=== PATIENT | female | born 1975 | race Two or more races ===

== ENCOUNTER 2021-01-18 15:05 | Outpatient (REF) | payer MEDICAID, SELFPAY ==
--- NOTE | ~2021-01-18 | XR_ITS ---
EXAMINATION: XR SOFT TISSUE NECK AND RIGHT SHOULDER CLINICAL INFORMATION: Neck pain. COMPARISON: None. TECHNIQUE: Soft tissue neck 2 views. Right shoulder 4 views. FINDINGS: SOFT TISSUE NECK: The airway is widely patent. The prevertebral soft tissues are normal. There is normal cervical lordosis. The vertebral heights, alignment and disc heights are normal. No visible acute fracture, dislocation or lytic process seen. RIGHT SHOULDER: There is no visible acute fracture, dislocation or subluxation seen. There is mild periarticular spurring right AC joint. The soft tissues are normal. XR/XR soft tissue neck IMPRESSION: Unremarkable soft tissue neck. No cervical spine bony abnormality seen. Unremarkable right shoulder exam.
--- NOTE | ~2021-01-18 | XR_ITS ---
EXAMINATION: XR SOFT TISSUE NECK AND RIGHT SHOULDER CLINICAL INFORMATION: Neck pain. COMPARISON: None. TECHNIQUE: Soft tissue neck 2 views. Right shoulder 4 views. FINDINGS: SOFT TISSUE NECK: The airway is widely patent. The prevertebral soft tissues are normal. There is normal cervical lordosis. The vertebral heights, alignment and disc heights are normal. No visible acute fracture, dislocation or lytic process seen. RIGHT SHOULDER: There is no visible acute fracture, dislocation or subluxation seen. There is mild periarticular spurring right AC joint. The soft tissues are normal. XR/XR shoulder RT min 2V IMPRESSION: Unremarkable soft tissue neck. No cervical spine bony abnormality seen. Unremarkable right shoulder exam.
== END 2021-01-18 15:06 | disposition home or self-care (01) ==
LOC: HO.XRAY 15:05
PROVIDERS: PCP Registered Nurse; Visit Provider Registered Nurse
DX: M25.511 Pain in right shoulder (principal); M54.2 Cervicalgia
CPT/HCPCS: 70360; 73030

== ENCOUNTER 2021-01-20 13:15 | Emergency (ER) | payer MEDICAID, SELFPAY ==
--- NOTE | ~2021-01-20 | US_ITS ---
EXAMINATION: PELVIC ULTRASOUND CLINICAL INFORMATION: Vaginal bleeding. Cramping. COMPARISON: None TECHNIQUE: Transcutaneous pelvic ultrasound. The patient was asked to void completely and reexamined vaginally to better characterize the endometrium and adnexa. FINDINGS: Transcutaneous scanning does not demonstrate a large mass or collection. No suspicious abnormality in the region of the vagina. The cervical length is approximately 3.2 cm. There is no suspicious abnormality in the cervix. The uterus is anteverted. The uterus measures approximately 8.2 x 4.8 x 4.5 cm. The endometrium is slightly heterogeneous. The endometrium measures approximately 0.5 cm. Small amount of fluid within the endometrial cavity. The myometrium is heterogeneous. The junctional zone is not well demonstrated. The uterine contour appears smooth. The right ovary measures approximately 3.3 x 1.6 x 1.9 cm. The estimated right ovarian volume is 5 mL. There is no suspicious right adnexal mass or collection. There is some color signal present within the right ovary. The left ovary measures approximately 3.2 x 2.5 x 3.6 cm. The estimated left ovary volume is approximately 17 mL. There is no suspicious left adnexal mass or collection. There is some color signal present within the left ovary. No significant free fluid US/US pelvic and transvaginal IMPRESSION: The endometrium is not thickened. There is no suspicious adnexal mass or collection. There is a trace amount of fluid in the endometrial cavity which is nonspecific and could represent blood. No discrete mass
[2021-01-20 13:18] VITALS: BP 147/80; PULSE 94; RESP 18; TEMP 36.2; O2SAT 98; BMI 29.2
[2021-01-20 15:18] VITALS: BP 119/61; PULSE 76; RESP 19; TEMP 36.9; O2SAT 99
--- NOTE | 2021-01-20 15:27 | ED.FEMALEGU ---
HPI - Female Genitourinary General Chief complaint: Urogenital-Female Stated complaint: Vaginal Bleeding Time Seen by Provider: 01/20/21 14:57 Source: patient and park interpreter Mode of arrival: ambulatory Limitations: no limitations and language barrier History of Present Illness HPI Narrative: 46-year-old female here with complaints of vaginal bleeding for 23 days. Patient tells me she has a history of heavy and prolonged bleeding and normally her menses last approximately 10 days. However, she has not had a period for 23 days. Heavy bleeding using 7 8 pads a day. Associated with clots. Associated with lower pelvic cramping. She is not on any control. She is not currently sexually active. No urinary symptoms, nausea, vomiting, vaginal discharge. She now is feeling dizzy, lightheaded with position changes with an associated headache. Related Data Allergies Allergy/AdvReac Type Severity Reaction Status Date / Time aspirin Allergy Unknown Unknown Verified 01/20/21 13:20 Review of Systems Review of Systems: Yes all other systems are reviewed and are negative Constitutional: Constitutional: Reports no additional constitutional complaints, Denies body ache(s), Denies chills, Denies fever(s), Denies headache(s) and Denies weakness Eyes: Eyes: Reports no additional eye complaints and Denies change in vision ENT: Reports system reviewed and no additional complaints, except as documented, Reports dizziness, Denies headache(s), Denies nasal congestion, Denies nasal discharge and Denies neck pain Cardiovascular: Cardiovascular: Reports no additional cardiovascular complaints, Denies chest pain, Denies leg edema and Denies dyspnea Respiratory: Respiratory: Reports no additional respiratory complaints, Denies cough and Denies dyspnea Gastrointestinal: Gastrointestinal: Reports no additional gastrointestinal complaints, Denies abdominal pain, Denies diarrhea, Denies nausea and Denies vomiting Genitourinary: Genitourinary: Reports no additional female genitourinary complaints, Reports abnormal menses, Reports pelvic pain and Denies urinary incontinence Musculoskeletal: Musculoskeletal: Reports no additional musculoskeletal complaints, Denies back pain, Denies arthralgias, Denies joint swelling, Denies neck pain, Denies numbness and Denies tingling Integumentary/Breasts: Skin/Breast: Reports system reviewed and no additional complaints, except as docu and Denies rash Neurologic: Reports system reviewed and no additional complaints, except as documented, Denies Abnormal speech present, Reports dizziness, Denies headache(s), Denies numbness, Denies tingling and Denies weakness PMFSH Past Medical History Attestation statement: The following information was validated with the patient. Source: old records reviewed and nursing notes reviewed Medical History Anemia Social History Social History Advance Directives: No Advance Directives Information Provided: No Physical Exam Vital Signs: Vital Signs: Last Vital Signs Temp 98.4 F 01/20/21 15:18 Pulse 60 01/20/21 16:00 Resp 18 01/20/21 16:00 BP 125/81 01/20/21 16:00 Pulse Ox 99 01/20/21 16:00 Body Mass Index 29.2 Const: General: cooperative, healthy appearing, comfortable and no acute distress Orientation/consciousness: patient oriented x3 Limitations: no limitations HENMT: Head: Yes normal to inspection Ears: hearing grossly normal bilaterally General nose exam: Normal external nose present Face and sinus: Yes normal facial exam Mouth: Normal oral and palatal mucosa present Throat: Yes posterior oropharynx normal Eyes: General: appearance normal, both eyes and all related structures Conjunctivae: conjunctival abnormal (Pale conjunctiva) Pupils: Equal, round and reactive pupils present Neck: Neck: Yes normal visual inspection Chest: Chest palpation & inspection: normal inspection of the chest Resp: Effort & Inspection: normal respiratory effort Auscultation: clear to auscultation bilaterally Cardio: Rate: regular rate Rhythm: regular rhythm Peripheral pulses: Peripheral pulses 2+ throughout GI: Inspection: Yes normal to inspection Palpation (GI): Soft to palpation and nontender Auscultation: normal bowel sounds : Speculum Exam - Vagina: normal appearance of the vagina and vaginal bleeding (small-mod amounts ) Speculum Exam - Cervix: normal appearance of the cervix Bimanual exam- vagina & uterus: normal bimanual exam Bimanual Exam- Adnexa, other: normal adnexae OB/external & speculum: vaginal bleeding (small-mod amounts ) Back/Spine/Pelvis: Thoracic/Lumbar Spine: thoracic and lumbar spine normal to inspection Skin: General skin exam: no rashes or lesions noted Neuro: General: patient oriented x3, no focal motor deficits and normal sensation to monofilament Cranial nerves: Yes Equal, round and reactive pupils present Cognition (Neuro): normal cognition Speech: No Abnormal speech present Gait exam (Neuro): Normal gait present Motor exam (neuro): 5/5 motor strength present throughout Extrem: General: Yes normal to inspection Course Course Course Narrative: 46-year-old female here with heavy vaginal bleeding for the last 23 days now feeling dizzy and lightheaded with position changes. Will need labs, orthostatic vital signs, UA, urine , pelvic ultrasound, pelvic exam 1700-Sign out to [facility] [employer] pending above MDM - Female Genitourinary MDM Narrative Medical decision making narrative: Dysfunctional uterine bleeding, uterine fibroid Medical Records Attestation: I reviewed the patient's medical records. Lab Data Attestation: I reviewed the patient's lab results. Labs: Lab Results 01/20/21 01/20/21 Range/Units 15:51 15:51 Urine Color YELLOW Urine Appearance CLEAR Urine pH 7.5 (5.0-8.0) Ur Specific [place] 1.010 (1.005-1.025) Urine Protein TRACE (NEG-TRACE) MG/DL Urine Glucose (UA) NEG (NEG) MG/DL Urine Ketones NEG (NEG) MG/DL Urine Blood 3+ H (NEG) Urine Nitrite NEG (NEG) Ur Leukocyte Esterase NEG (NEG) Urine RBC 50-75 H (0) /HPF Urine WBC 1-4 (0-4) /HPF Ur Squamous Epith Cells TRACE /LPF Urine Bacteria NONE /LPF Urine Mucus TRACE /LPF Urine Test NEGATIVE (NEGATIVE) Imaging Data pelvic US: Attestation: I personally reviewed and interpreted this imaging study as follows: Radiologist's impression: IMPRESSION: The endometrium is not thickened. There is no suspicious adnexal mass or collection. There is a trace amount of fluid in the endometrial cavity which is nonspecific and could represent blood. No discrete mass Discharge Plan Discharge Clinical Impression: Vaginal bleeding problems
[2021-01-20 15:58] LABS: Glucose Urine UA NEG (NEG); Leukocyte Esterase Urine NEG (NEG); Nitrite Urine NEG (NEG); PH 7.5 (5.0-8.0); Urine Blood 3+ (NEG); Urine Ketones NEG (NEG); Urine Protein TRACE MG/DL (NEG-TRACE)
[2021-01-20 16:00] VITALS: BP 125/81; PULSE 60; RESP 18; O2SAT 99
[2021-01-20 16:02] LABS: Appearance Urine CLEAR; Color Urine YELLOW; UPreg QC Valid YES; Urine Pregnancy NEGATIVE (NEGATIVE)
[2021-01-20 16:10] LABS: RBC Urine 50-75 /HPF (0); Squamous Epithelial Cell Urine TRACE /LPF
[2021-01-20 16:11] LABS: Mucus Urine TRACE /LPF
[2021-01-20 17:59] LABS: MANUAL DIFF FLAG NO
[2021-01-20 18:01] LABS: Eosinophils Absolute Auto 0.1 X10*3/uL (0.0-0.4); Eosinophils Percent Auto 1.2 % (0-4); Hematocrit 32.2 % (37-47); Hemoglobin 9.9 g/dl (12.0-16.0); Imm Gran Abs Auto 0.01 X10*3/uL (0.00-0.03); Imm Gran Pct Auto 0.2 % (0.0-0.4); Lymphocytes Absolute Auto 1.3 X10*3/uL (1.2-4.9); Lymphocytes Percent Auto 32.8 % (20-40); Mean Corpuscular HGB Conc 30.7 g/dl (31.0-35.0); Mean Corpuscular Hemoglobin 24.1 pg (27.0-33.0); Mean Corpuscular Volume 78.5 fL (80-98); Mean Platelet Volume 9.1 fL (9.4-12.3); Monocytes Absolute Auto 0.4 X10*3/uL (0.1-1.2); Monocytes Percent Auto 8.6 % (2-11); Neutrophils Absolute Auto 2.3 X10*3/uL (2.0-8.3); Neutrophils Percent Auto 56.2 % (45-73); Platelet Count 334 X10*3/uL (160-400); Red Cell Distribution Width 14.3 % (11.0-16.0); White Blood Count 4.1 X10*3/uL (4.8-10.8)
[2021-01-20 18:09] LABS: INTERNATIONAL NORM RATIO 1.1 (0.9-1.1); Prothrombin Time 12.6 SEC (10.8-13.0)
[2021-01-20 18:22] LABS: Alanine Aminotransferase 14 U/L (0-31); Alkaline Phosphatase 66 U/L (39-117); Anion Gap 12 (12-20); Aspartate Amino Transferase 18 U/L (5-31); Bilirubin Direct < 0.2 mg/dL (0.0-0.5); Bilirubin Total 0.4 mg/dL (0.0-1.0); Blood Urea Nitrogen 9 mg/dL (9-16); Calcium 8.9 mg/dL (8.4-10.2); Carbon Dioxide 24 mmol/L (22-29); Chloride 107 mmol/L (96-108); Creatinine Clr Calc Pharmacy 84.1; Estimated Glomerular Filt Rate > 60; Glucose Random 76 mg/dL (60-115); Potassium 4.1 mmol/L (3.3-5.1); Sodium 139 mmol/L (135-145); Total Protein 6.8 g/dL (6.5-8.0)
[2021-01-20] MEDS: medroxyPROGESTERone Acetate 5 MG TABLET 10 MG PO (19:24)
[2021-01-20 19:25] VITALS: BP 134/87; PULSE 67; RESP 16; O2SAT 99
[2021-01-21 08:41] LABS: BV Int Neg Control Negative (Negative); BV Int Pos Control Positive (Positive)
[2021-01-21 10:17] LABS: CT PCR NOT DETECTED (Not Detect.); NG PCR NOT DETECTED (Not Detect.)
== END 2021-01-20 19:52 | disposition home or self-care (01) ==
PROVIDERS: Nurse Practitioner Family; Emergency Provider Emergency Medicine
DX: N93.9 Abnormal uterine and vaginal bleeding, unspecified (principal); R10.2 Pelvic and perineal pain; D64.9 Anemia, unspecified
CPT/HCPCS: 36415; 76830; 76856; 80048; 80076; 81001; 81003; 81025; 85025; 85610; 87480; 87491; 87510; 87591; 87660; 99284

== ENCOUNTER 2021-05-29 15:29 | Outpatient (REF) | payer MEDICAID, SELFPAY | END 2021-05-29 15:30 | disposition home or self-care (01) | LOC: HO.LAB 15:29 | PROVIDERS: Visit Provider Internal Medicine | DX: Z20.822 Contact with and (suspected) exposure to COVID-19 (principal) | CPT/HCPCS: C9803; U0003; U0005 ==

== ENCOUNTER 2021-08-09 15:19 | Outpatient (REF) | payer MEDICAID, SELFPAY ==
--- NOTE | ~2021-08-09 | MM_ITS ---
EXAMINATION: MM SCREENING DIGITAL BREAST TOMOSYNTHESIS, BILATERAL CLINICAL INFORMATION: Screening. Asymptomatic. The lifetime risk of breast cancer based on the Tyrer-Cuzick Model is 11.1%. COMPARISON: Mammography: 12/22/2018 and 12/11/2017. TECHNIQUE: Digital breast tomosynthesis is performed in both the craniocaudal and mediolateral oblique views along with computer-aided detection (CAD). Synthesized 2D images are generated from the tomosynthesis. FINDINGS: There are scattered areas of fibroglandular density (ACR BI-RADS breast composition Category b). There is a stable parenchymal pattern of the left breast with no new abnormal dominant mass or suspicious grouping of microcalcifications. About the deep upper outer aspect of the right breast, there is a new circumscribed density without microcalcifications or spiculation measuring approximately 7 x 5 mm in size, 9 cm from the nipple, for which spot compression films and ultrasound is recommended. MM/MM tomosynthesis screening BI IMPRESSION: Right breast circumscribed density for further evaluation with spot compression views and ultrasound. ASSESSMENT: BI-RADS 0: Incomplete - need additional imaging evaluation RECOMMENDATION: 1. Additional views of the right breast. 2. Targeted ultrasound if warranted after review of the additional views. 3. Radiology department staff will contact the patient for additional imaging. This patient's information was entered into a reminder system with a target due date for their next mammogram.
== END 2021-08-09 15:20 | disposition home or self-care (01) ==
LOC: HO.MAMMO 15:19
PROVIDERS: PCP Registered Nurse; Visit Provider Registered Nurse Community Health
DX: Z12.31 Encounter for screening mammogram for malignant neoplasm of breast (principal)
CPT/HCPCS: 77063; 77067

== ENCOUNTER 2021-08-28 14:29 | Outpatient (REF) | payer MEDICAID, SELFPAY ==
--- NOTE | ~2021-08-28 | MM_ITS ---
EXAMINATION: MM DIAGNOSTIC DIGITAL BREAST TOMOSYNTHESIS, RIGHT US DIAGNOSTIC ULTRASOUND BREAST, RIGHT CLINICAL INFORMATION: Recall from screening for smooth focal nodular asymmetry outer right breast 9:00-10:00 position under 1 cm. COMPARISON: Mammography: 08/09/2021, 12/22/2018, 12/11/2017 TECHNIQUE: Digital breast tomosynthesis is performed. 2D images are generated from the tomosynthesis. The following views are obtained: Spot CC x2, spot MLO Ultrasound right breast is targeted to the outer breast. Grayscale imaging and color Doppler are performed without and with harmonics. FINDINGS: The spot CC #2 view shows oval nodular asymmetry in the area of interest outer quadrant 10 cm from nipple measuring 0.5 x 0.8 cm. There is questionable notched contour which may suggest an intramammary node. No spiculation or associated calcification. Finding is less conspicuous on the MLO spot view. Ultrasound right breast demonstrates intramammary node 10:00 position 10 cm from nipple measuring 0.8 x 0.6 cm with normal eliezer architecture and color flow pattern. This may represent finding on recent mammography. There is no solid mass or architectural abnormality. Results are discussed with the patient at time of visit. Short interval right mammography will be requested in 6 months. Ultrasound may be performed at same visit as warranted. MM/MM tomosynthesis added views R IMPRESSION: Smooth oval subcentimeter nodular asymmetric density outer right breast breast possibly related to an intramammary node. ASSESSMENT: BI-RADS 3: Probably Benign RECOMMENDATION: Diagnostic right mammography in 6 months. This patient's information was entered into a reminder system with a target due date for their next mammogram.
== END 2021-08-28 14:30 | disposition home or self-care (01) ==
LOC: HO.MAMMO 14:29
PROVIDERS: Visit Provider Registered Nurse Community Health
DX: N63.13 Unspecified lump in the right breast, lower outer quadrant (principal)
CPT/HCPCS: 76642; 77061; 77065

== ENCOUNTER 2021-12-10 15:59 | Outpatient (REF) | payer MEDICAID, SELFPAY ==
[2021-12-10 17:17] LABS: Hematocrit 35.4 % (37.0-47.0); Hemoglobin 10.9 g/dl (12.0-16.0); Mean Corpuscular HGB Conc 30.8 g/dl (31.0-35.0); Mean Corpuscular Hemoglobin 24.2 pg (27.0-33.0); Mean Corpuscular Volume 78.7 fL (80.0-98.0); Mean Platelet Volume 9.3 fL (9.4-12.3); Platelet Count 336 X10*3/uL (160-400); Red Cell Distribution Width 14.4 % (11.0-16.0); White Blood Count 4.4 X10*3/uL (4.8-10.8)
[2021-12-10 17:58] LABS: Alanine Aminotransferase 26 U/L (0-31); Albumin Level 4.2 g/dL (3.5-5.0); Alkaline Phosphatase 54 U/L (39-117); Anion Gap 8 (12-20); Aspartate Amino Transferase 21 U/L (5-31); Bilirubin Total < 0.2 mg/dL (0.0-1.0); Blood Urea Nitrogen 12 mg/dL (9-16); Carbon Dioxide 26 mmol/L (22-29); Chloride 110 mmol/L (96-108); Estimated Glomerular Filt Rate > 60; Glucose Random 101 mg/dL (60-115); Potassium 4.2 mmol/L (3.3-5.1); Sodium 140 mmol/L (135-145); Total Protein 6.8 g/dL (6.5-8.0)
[2021-12-10 18:11] LABS: TSH reflex Free T4 1.83 uIU/mL (0.32-4.0)
[2021-12-10 18:20] LABS: Folate 9.6 ng/mL (> or = 4.0); Vitamin B12 507 pg/mL (200-900)
[2021-12-12 21:56] LABS: Transglutaminase Ab IgG <1.0 U/mL; Transglutaminase IgA <1.0 U/mL
[2021-12-15 13:07] LABS: Vitamin D 25-OH, D2 <4 ng/mL; Vitamin D 25-OH, D3 22 ng/mL; Vitamin D 25-OH, Total 22 ng/mL (30-100)
== END 2021-12-10 16:00 | disposition home or self-care (01) ==
LOC: HO.LAB 15:59
PROVIDERS: PCP Registered Nurse; Referring Provider Registered Nurse; Visit Provider Nurse Practitioner Family
DX: R10.9 Unspecified abdominal pain (principal); R19.7 Diarrhea, unspecified; R14.0 Abdominal distension (gaseous); K21.9 Gastro-esophageal reflux disease without esophagitis; K58.2 Mixed irritable bowel syndrome; E55.9 Vitamin D deficiency, unspecified
CPT/HCPCS: 36415; 80053; 82306; 82607; 82746; 84443; 85027; 86364; 99202

== ENCOUNTER 2021-12-11 18:04 | Outpatient (REF) | payer MEDICAID, SELFPAY ==
[2021-12-12 12:52] LABS: H Pylori Breath Test Negative (Negative)
== END 2021-12-11 18:05 | disposition home or self-care (01) ==
LOC: HO.LNP 18:04
PROVIDERS: Visit Provider Nurse Practitioner Family
DX: K21.9 Gastro-esophageal reflux disease without esophagitis (principal); K58.2 Mixed irritable bowel syndrome; R14.0 Abdominal distension (gaseous)
CPT/HCPCS: 83013

== ENCOUNTER 2022-02-01 15:25 | Outpatient (REF) | payer MEDICAID, SELFPAY ==
[2022-02-01 17:00] LABS: Hematocrit 35.4 % (37.0-47.0); Hemoglobin 11.2 g/dl (12.0-16.0); Mean Corpuscular HGB Conc 31.6 g/dl (31.0-35.0); Mean Corpuscular Hemoglobin 24.7 pg (27.0-33.0); Mean Corpuscular Volume 78.1 fL (80.0-98.0); Mean Platelet Volume 9.6 fL (9.4-12.3); Platelet Count 351 X10*3/uL (160-400); Red Blood Count 4.53 X10*6/uL (4.20-5.50); Red Cell Distribution Width 14.4 % (11.0-16.0); White Blood Count 5.6 X10*3/uL (4.8-10.8)
[2022-02-01 17:18] LABS: Iron 127 mcg/dL (30-160); Percent Iron Saturation 45 % (15-50); Total Iron Binding Capacity 280 mcg/dL (228-428); Unsaturated Iron Binding 153 ug/dL
[2022-02-01 17:41] LABS: Ferritin 22 ng/mL (10-250)
== END 2022-02-01 15:26 | disposition home or self-care (01) ==
LOC: HO.LAB 15:25
PROVIDERS: PCP Registered Nurse; Referring Provider Registered Nurse; Visit Provider Nurse Practitioner Family
DX: Z01.818 Encounter for other preprocedural examination (principal); K92.2 Gastrointestinal hemorrhage, unspecified; R74.8 Abnormal levels of other serum enzymes; D50.8 Other iron deficiency anemias; K21.9 Gastro-esophageal reflux disease without esophagitis
CPT/HCPCS: 36415; 82728; 83540; 85027; 99212

== ENCOUNTER 2022-03-07 13:33 | Outpatient (REF) | payer MEDICAID, SELFPAY ==
--- NOTE | ~2022-03-07 | MM_ITS ---
EXAMINATION: MM DIAGNOSTIC DIGITAL BREAST TOMOSYNTHESIS, RIGHT CLINICAL INFORMATION: Short interval six-month follow-up probable benign nodular asymmetry suspected intramammary node on prior imaging. TC score 9%. COMPARISON: Mammography: 08/28/2021, 08/09/2021, 12/22/2018, 12/11/2017, targeted right breast ultrasound 08/28/2021. TECHNIQUE: Digital breast tomosynthesis is performed in both the craniocaudal and mediolateral oblique views along with computer-aided detection (CAD). Synthesized 2D images are generated from the tomosynthesis. Additional right MLO view is provided. FINDINGS: There are scattered areas of fibroglandular density (ACR BI-RADS breast composition Category b). The nodule noted previously prompting recall is not seen with certainty. Parenchymal pattern is otherwise similar to prior studies. There is no developing density, interval mass, or architectural abnormality. No abnormal calcifications. Skin contours are smooth. Results are provided to the patient at time of visit by the technologist. MM/MM tomosynthesis diagnostic RT IMPRESSION: No developing density or interval mass or architectural abnormality. ASSESSMENT: BI-RADS 2: Benign RECOMMENDATION: Routine annual mammography screening. This patient's information was entered into a reminder system with a target due date for their next mammogram.
== END 2022-03-07 13:34 | disposition home or self-care (01) ==
LOC: HO.MAMMO 13:33
PROVIDERS: Visit Provider Registered Nurse
DX: R92.2 Inconclusive mammogram (principal)
CPT/HCPCS: 77061; 77065

== ENCOUNTER 2022-05-30 11:55 | Outpatient (REF) | payer MEDICAID, SELFPAY ==
--- NOTE | ~2022-05-30 | XR_ITS ---
EXAMINATION: XR ANKLE, RIGHT CLINICAL INFORMATION: Pain. COMPARISON: None. TECHNIQUE: AP, lateral, and mortise views of the right ankle. FINDINGS: Bony alignment and mineralization are normal. The ankle mortise is intact. No fracture, dislocation or right ankle joint effusion is seen. Boehler's angle is normal. There is a large posterior calcaneal spur. No focal soft tissue swelling, gas or foreign body is seen. XR/XR ankle RT 2V IMPRESSION: 1. No fracture, dislocation or right ankle joint effusion is seen. 2. There is a large posterior calcaneal spur
--- NOTE | ~2022-05-30 | XR_ITS ---
EXAMINATION: XR KNEE, RIGHT CLINICAL INFORMATION: Pain. COMPARISON: None TECHNIQUE: AP, lateral, tunnel, and sunrise views of the right knee. FINDINGS: Bones and soft tissues are normal. No fracture or joint effusion. A small enthesophyte is noted arising from the upper pole of the patella at the quadriceps tendon insertion. Alignment is anatomic. Joint spaces are well maintained. No abnormal soft tissue calcification. XR/XR knee RT 3V IMPRESSION: Unremarkable right knee.
== END 2022-05-30 11:56 | disposition home or self-care (01) ==
LOC: HO.XRAY 11:55
PROVIDERS: Absent Provider Registered Nurse Community Health; PCP Registered Nurse Community Health; Visit Provider Family Medicine
DX: M25.561 Pain in right knee (principal); M25.571 Pain in right ankle and joints of right foot
CPT/HCPCS: 73562; 73600

== ENCOUNTER 2022-07-03 11:40 | Day surgery (SDC) | payer MEDICAID, SELFPAY ==
--- NOTE | 2022-07-02 12:07 | HO.ANESPROP2 ---
HPI - Anesthesia Eval Consult details Narrative: 47yo F for Upper Endoscopy and Colonoscopy [facility] Past Medical History Medical History (Updated 07/03/22 @ 12:17 by Concetta Moncada RN) Anemia Asthma GERD (gastroesophageal reflux disease) Family History Family History Father No problems noted. Mother HTN (hypertension) Dementia Maternal Grandfather Diabetes Son Diabetes Surgical History Surgical History (Updated 07/12/22 @ 11:04 by Darwin Vicente) History of esophagogastroduodenoscopy (EGD) History of pubovaginal sling Hx of colonoscopy Social History Social History Household Members: Children Alcohol intake: never Patient Tobacco Use Status: Never used Tobacco Meds Allergies Allergy/AdvReac Type Severity Reaction Status Date / Time aspirin Allergy Unknown Rash Verified 07/03/22 12:18 Home Medications Medication Instructions Recorded Confirmed Last Taken Type albuterol sulfate 90 mcg/actuation 2 puff inhalation Q4-6H PRN 06/28/22 06/28/22 04/01/22 History aerosol inhaler (ProAir HFA) Wheezing mirabegron 25 mg tablet,extended 1 tab PO DAILY 07/03/22 07/03/22 07/01/22 History release 24 hr (Myrbetriq) Exam Exam Date and Time: July 02, 2022 1207 Assessment and Plan Assessment Anesthesia Assessment: Chart Reviewed
[2022-07-03 11:53] LABS: UPreg QC Valid YES; Urine Pregnancy NEGATIVE (NEGATIVE)
[2022-07-03 11:54] VITALS: BP 137/88; PULSE 82; RESP 16; TEMP 36.3; O2SAT 97; BMI 31.1
[2022-07-03] MEDS: Lactated Ringers 1,000 ML 100 ML IVCONT (12:12)
--- NOTE | 2022-07-03 12:46 | P.CONAN_ITS ---
[facility] Past Medical History Medical History (Updated 07/03/22 @ 12:17 by Concetta Moncada RN) Anemia Asthma GERD (gastroesophageal reflux disease) Family History Family History Father No problems noted. Mother HTN (hypertension) Dementia Maternal Grandfather Diabetes Son Diabetes Family history of problems with anesthesia: No Surgical History Surgical History (Updated 07/03/22 @ 12:17 by Concetta Moncada RN) History of pubovaginal sling History of Problems with Anesthesia: No Social History Social History Household Members: Children Alcohol intake: never Patient Tobacco Use Status: Never used Tobacco Are you DNR?: No Advance Directives: No Advance Directives Information Provided: Yes Recently lost weight without trying: No Nutrition Risks: No Nutritional Risk Patient : No Meds Allergies Allergy/AdvReac Type Severity Reaction Status Date / Time aspirin Allergy Unknown Rash Verified 07/03/22 12:18 Active Medications: Current Medications Lactated Ringer's (Lr) 1,000 mls @ 100 mls/hr IVCONT .Q10H HAILEE Last Admin: 07/03/22 12:12 Dose: 100 mls/hr Home Medications Medication Instructions Recorded Confirmed Last Taken Type albuterol sulfate 90 mcg/actuation 2 puff inhalation Q4-6H PRN 06/28/22 06/28/22 04/01/22 History aerosol inhaler (ProAir HFA) Wheezing mirabegron 25 mg tablet,extended 1 tab PO DAILY 07/03/22 07/03/22 07/01/22 History release 24 hr (Myrbetriq) Exam Exam Date and Time: July 03, 2022 1246 Height,Weight and Vital Signs: Height 5 ft 2 in Weight 77.111 kg Last Vital Signs Temp 97.3 F 07/03/22 11:54 Pulse 82 07/03/22 11:54 Resp 16 07/03/22 11:54 BP 137/88 07/03/22 11:54 Pulse Ox 97 07/03/22 11:54 O2 Del Method 07/03/22 11:54 Pertinent Lab Results Pertinent Lab Results: Laboratory Tests 07/03/22 11:40 Urine Test NEGATIVE Airway Mallampati Class: II TM Dist: >3cm Neck ROM: Full Assessment and Plan Assessment Anesthesia Assessment: Anesthesia Plan Discussed and Chart Reviewed Final Anesthetic Review Family History of Problems with Anesthesia: No History of Problems with Anesthesia: No NPO: Yes ASA Class: II Final Preanesthetic Review: No Changes in Pt Med Stat, Meds/Allgs Chart Reviewed, Consent Obtained/Reviewed and Anes Risks/Benef Reviewed Patient Risk: Low Procedure Risk: Low Anesthetic Plan Anesthetic Plan: MAC: Disposition: Standard PACU
--- NOTE | 2022-07-03 13:13 | MHC.SHP ---
Pre-Procedural Eval Section A Date of Service: 07/03/22 Section B Chief Complaint: iron deficiency anemia, reflux disease Details of Present Illness: 47 y.o F with epigastric pain, bloating as well as iron deficiency anemia who is here for EGD and colonoscopy. Relevant Family History (Specify if Yes): No Relevant Social History: None Present Medications: see Short Stay Collaborative assessment Allergies: Allergies Allergy/AdvReac Type Severity Reaction Status Date / Time aspirin Allergy Unknown Rash Verified 07/03/22 12:18 Review of Systems Review of Systems Comment: 10 point ROS negative Exam Exam Comment: Gen appear: No acute distress, well nourished HEENT: no icterus, Chest: No overt resp distress CVS: S1/S2, regular Abd: soft, nontender, nondistended Psych: Stable affect, answering questions appropriately Neuro: A/Ox3 noted to move all extremities spontaneously Ext: no peripheral edema Plan Diagnosis/Plan: Unchanged I have reviewed the history and physical and performed a pertinent physical examination on my patient. No changes have occurred unless specified.
--- NOTE | 2022-07-03 13:27 | P.OP_ITS ---
Operative Note Operative Note Date of Service: 07/03/22 Narrative: Procedure: Colonoscopy and esophagogastroduodenoscopy Indication: Anemia Endoscopist: Katherine Carrion MD Anesthesia Provider: Shannon Maldonado CRNA Anesthesia type: MAC Instrument: Olympus PCF-H190L and [id number] Consent: Indication, risks vs benefits, and alternatives were discussed with the patient who gave written informed consent to proceed. EKG, pulse, pulse oximetry and blood pressure were monitored throughout the procedure. Colonoscopy procedure: The patient was brought to the procedure room and placed in the left lateral decubitus position. A digital rectal exam was performed which was normal. The colonoscope was then inserted through the anus and advanced through the colon to the cecum at 75 cm,and terminal ileum. Mucosa was carefully examined under high definition white light as the instrument was slowly withdrawn in a retrograde panoramic fashion. Retroflexion was performed in ascending colon and rectum. The procedure was not difficult. There were no immediate obvious complications. The quality of the prep was BBPS: 3+3+3 = excellent Withdrawal time 10 minutes. Limitations: No limitations. Findings: Mucosa: x2 nonbleeding AVMs were noted in the descending colon. The AVMs were not bleeding. Water jet agitation did not provoke any bleeding either. Protruding lesions: * Medium internal hemorrhoids [without] stigmata of recent bleeding. Excavated lesions: * Few diverticula of left sided colon. EGD Procedure:?? The patient was then turned for the upper endoscopy. The endoscope was introduced through the bite block, and advanced to the second part of duodenum. The mucosa was carefully examined on slow withdrawal of the endoscope. The patient tolerated the procedure well. There were no immediate complications.? EGD Findings:? * Esophagus:? Grade A esophagitis was noted in the lower esophagus. The Z line was at 38cm. * Stomach:?1 cm focus of abnormal mucosa was noted in the incisura, likely a healing ulcer. Cold forceps biopsies were taken. Random cold forceps gastric biopsies were also taken to rule out H Pylori infection. * Duodenum:? Normal mucosa was noted in the whole of the examined duodenum. Cold forceps biopsies were taken from duodenal bulb and second portion of the duodenum to rule out celiac sprue. Impression: * Nonbleeding descending colon AVMs x2 * Mild diverticulosis * Internal hemorrhoids * Grade A esophagitis * ? Healing ulcer at incisura (biopsy) * Normal duodenum (biopsy) Recommendations:?? * Follow biopsy results. Our office will call or send a letter with results within 7-10 days. * Start/continue PPI therapy. * If H pylori +, patient will be prescribed eradication therapy followed by test of cure. * Avoid NSAIDs and smoking. * Repeat colonoscopy in 10 years for colorectal screening. * Follow up in GI office as scheduled.
[2022-07-03 14:28] VITALS: BP 109/61; PULSE 102; RESP 16; TEMP 36.8; O2SAT 99
== END 2022-07-03 16:05 | disposition home or self-care (01) ==
PROVIDERS: Nurse Practitioner; PCP Registered Nurse Community Health; Visit Provider Internal Medicine
PROC: (CPT 45378; principal; 2022-07-03 12:40)
DX: Z12.11 Encounter for screening for malignant neoplasm of colon (principal); K55.20 Angiodysplasia of colon without hemorrhage; K57.30 Diverticulosis of large intestine without perforation or abscess without bleeding; K64.8 Other hemorrhoids; D50.9 Iron deficiency anemia, unspecified; K21.9 Gastro-esophageal reflux disease without esophagitis; K29.50 Unspecified chronic gastritis without bleeding; K20.80 Other esophagitis without bleeding; J45.909 Unspecified asthma, uncomplicated; Z79.899 Other long term (current) drug therapy; Z88.8 Allergy status to other drugs, medicaments and biological substances
CPT/HCPCS: 45378; 43239; 81025; 88305; 88342

== ENCOUNTER 2022-07-17 15:38 | Outpatient (REF) | payer MEDICAID, SELFPAY ==
[2022-07-17 17:26] LABS: Hematocrit 34.6 % (37.0-47.0); Hemoglobin 10.9 g/dl (12.0-16.0); Mean Corpuscular HGB Conc 31.5 g/dl (31.0-35.0); Mean Corpuscular Hemoglobin 24.5 pg (27.0-33.0); Mean Corpuscular Volume 77.8 fL (80.0-98.0); Mean Platelet Volume 9.9 fL (9.4-12.3); Platelet Count 365 X10*3/uL (160-400); Red Blood Count 4.45 X10*6/uL (4.20-5.50); Red Cell Distribution Width 13.7 % (11.0-16.0); White Blood Count 5.4 X10*3/uL (4.8-10.8)
== END 2022-07-17 15:39 | disposition home or self-care (01) ==
LOC: HO.LAB 15:38
PROVIDERS: PCP Registered Nurse Community Health; Visit Provider Nurse Practitioner Family
DX: D64.9 Anemia, unspecified (principal)
CPT/HCPCS: 36415; 85027; 99212

== ENCOUNTER 2022-08-21 08:57 | Outpatient (REF) | payer MEDICAID, SELFPAY | END 2022-08-21 08:58 | disposition home or self-care (01) | LOC: HO.CT 08:57 | PROVIDERS: Visit Provider Emergency Medicine | DX: R51.9 Headache, unspecified (principal) | CPT/HCPCS: 70450 ==

== ENCOUNTER 2023-01-10 15:36 | Outpatient (REF) | payer MEDICAID, SELFPAY ==
--- NOTE | ~2023-01-10 | US_ITS ---
EXAM: Pelvic Ultrasound CLINICAL INDICATION: Pelvic pain. Pelvic cramping. COMPARISON: Pelvic ultrasound 01/20/2021 TECHNIQUE: The pelvis was evaluated using transabdominal and transvaginal imaging. FINDINGS: The uterus measures 8.3 x 3.6 x 4.9 cm in longitudinal by AP by transverse dimension. The endometrial stripe is not thickened and measures 0.5 cm. IUD appears properly positioned within the uterus. A 1.3 cm fibroid is noted within the uterus. The left ovary measures approximately 2.2 x 1.0 x 1.8 cm and is normal. The right ovary measures approximately 2.5 x 1.0 x 1.5 cm and is also normal. There are no abnormal adnexal masses. There is a small amount of free fluid in the pelvis. US/US pelvic and transvaginal IMPRESSION: 1. IUD in expected orientation. 2. Small uterine fibroid. 3. Small amount of free pelvic fluid which is likely physiologic in a female of this age.
== END 2023-01-10 15:37 | disposition home or self-care (01) ==
LOC: HO.US 15:36
PROVIDERS: Visit Provider Advanced Practice Midwife
DX: Z30.432 Encounter for removal of intrauterine contraceptive device (principal); R10.2 Pelvic and perineal pain
CPT/HCPCS: 76830; 76856

== ENCOUNTER → 2023-01-15 14:44 | Outpatient (BNVA) | payer MEDICAID, SELFPAY | PROVIDERS: PCP Nurse Practitioner Primary Care; Visit Provider Nurse Practitioner Family | DX: K21.9 Gastro-esophageal reflux disease without esophagitis (principal); Z79.899 Other long term (current) drug therapy | CPT/HCPCS: 99212 ==

== ENCOUNTER → 2023-03-13 14:15 | Outpatient (BNV) | payer MEDICAID, SELFPAY | PROVIDERS: PCP Nurse Practitioner Primary Care; Visit Provider Radiology Diagnostic Radiology | DX: Z12.31 Encounter for screening mammogram for malignant neoplasm of breast (principal) | CPT/HCPCS: 77063; 77067 ==

== ENCOUNTER 2023-03-13 14:42 | Outpatient (REF) | payer MEDICAID, SELFPAY ==
--- NOTE | ~2023-03-13 | MM_ITS ---
EXAMINATION: MM SCREENING DIGITAL BREAST TOMOSYNTHESIS, BILATERAL CLINICAL INFORMATION: Screening. Asymptomatic. The lifetime risk of breast cancer based on the Tyrer-Cuzick Model is 9.5%. COMPARISON: Mammography: This study is compared with prior exams dating back to 2018. TECHNIQUE: Digital breast tomosynthesis is performed in both the craniocaudal and mediolateral oblique views along with computer-aided detection (CAD). Synthesized 2D images are generated from the tomosynthesis. FINDINGS: There are scattered areas of fibroglandular density (ACR BI-RADS breast composition Category b). There are no significant masses, abnormal calcifications, or other abnormalities. MM/MM tomosynthesis screening BI IMPRESSION: No mammographic evidence of malignancy. ASSESSMENT: BI-RADS BI-RADS 1 - Negative RECOMMENDATION: Routine annual mammography screening. 1 year F/U This examination should not preclude the clinical evaluation of a suspicious palpable abnormality. This patient's information was entered into a reminder system with a target due date for their next mammogram.
== END 2023-03-13 14:43 | disposition home or self-care (01) ==
LOC: HO.MAMMO 14:42
PROVIDERS: PCP Nurse Practitioner Primary Care; Visit Provider Advanced Practice Midwife
DX: Z12.31 Encounter for screening mammogram for malignant neoplasm of breast (principal)
CPT/HCPCS: 77063; 77067

== ENCOUNTER 2023-03-14 10:55 | Outpatient (REF) | payer MEDICAID, SELFPAY ==
[2023-03-14 13:50] LABS: Estimated Average Glucose 111 mg/dL; Hemoglobin A1c % 5.5 %
[2023-03-14 15:32] LABS: Cholesterol 213 mg/dL; HDL Cholesterol 45 mg/dL; LDL Cholesterol Calculated 153 mg/dl; Triglycerides 76 mg/dL
[2023-03-14 15:33] LABS: Vitamin D 25-OH Total 42.6 ng/mL (>30)
== END 2023-03-14 10:56 | disposition home or self-care (01) ==
LOC: HO.CHCLDS 10:55
PROVIDERS: Visit Provider Nurse Practitioner Primary Care
DX: R73.03 Prediabetes (principal); G47.9 Sleep disorder, unspecified; E55.9 Vitamin D deficiency, unspecified
CPT/HCPCS: 36415; 80061; 82306; 83036; 84443

== ENCOUNTER 2023-07-18 13:51 | Outpatient (AMB) | payer MEDICAID, SELFPAY ==
[2023-07-18 13:54] VITALS: BP 145/72; PULSE 75; BMI 30.2
--- NOTE | 2023-07-18 13:54 | MHC.OFFVIS ---
Intake Vital Signs 07/18/23 13:54 Height 5 ft 2 in Weight 164 lb 14.492 oz BMI 30.2 BP 145/72 H Blood Pressure Location Rt brachial Position Sitting Pulse 75 Pulse Source Pulse Oximeter Intake Visit Reasons: 6 month fu Intake Note: Pt presents to the office today for a 6 month follow up. Pt states she is feeling much better and has rarely had any acid reflux since taking the omeperazole when needed. Pt denies any other GI concerns at this time. Allergies aspirin Allergy (Unknown, Verified 07/18/23 13:56) Rash HPI 6 month fu HPI Details LAST VISIT: GERD (gastroesophageal reflux disease) Continue current dose of omeprazole. Patient was encouraged to going follow-up with PCP regarding asthma. Patient symptoms of shortness of breath could be related to reflux. Patient will call me if the dose will not going to be effective. Discussed with patient avoiding dietary triggers and late night snacking. Staying upright for minimal 3 hours after meals discussed patient. I will see patient in 6 months, sooner on as needed basis. Patient is agreeable to this plan and verbalizes understanding of instructions. She was given the opportunity to ask questions and all questions answered. ? Thank you for allowing me to participate in her care Plan Medications New omeprazole 20 mg PO DAILY 30 caps 4RF K21.9 - Gastro-esophageal reflux disease without esophagitis Discontinued omeprazole Take 30 mins before meals Discontinued Reason: Doctor's Order 40 mg PO DAILY 28 days 28 caps 0RF TODAY'S VISIT Patient is here today for follow-up. Patient reports that she has been feeling well. Since last time I have seen her she only uses omeprazole on as needed basis. Patient reports hives it once or twice week if needed. Patient denies having any acid reflux, dyspepsia, dysphagia or odynophagia. She feels like her bowels normalized this well. She no longer has a diarrhea and constipation. Patient states that she moves her bowels daily. Feels like she empties them completely. Patient denies any abdominal pain or discomfort. Denies any melena, hematochezia, unintentional weight loss or ribbon like stools. Patient had colonoscopy last year, no polyps found and 10 your recommendation made. Patient reports to have good appetite. Denies any GI concerning symptoms. [facility], [facility] Medical History Asthma GERD (gastroesophageal reflux disease) Anemia Surgical History Hx of colonoscopy History of esophagogastroduodenoscopy (EGD) History of pubovaginal sling Family History Father No problems noted. Mother HTN (hypertension) Dementia Maternal Grandfather Diabetes Son Diabetes Social History Household Members: Children Alcohol intake: never Patient Tobacco Use Status: Never used Tobacco Review of Systems Const Denies weight gain and Denies weight loss ENT Reports no additional complaints, Denies dysphagia and Denies odynophagia Card Reports no additional complaints Resp Reports no additional complaints GI Denies abdominal pain, Denies belching, Denies melena, Denies bloating, Denies change in bowel habits, Denies dysphagia, Denies excessive flatus, Denies dyspepsia, Denies heartburn, Denies diarrhea, Denies loose stools, Denies nausea, Denies odynophagia and Denies vomiting Musc Reports no additional complaints Neuro Reports no additional complaints Psych Reports no additional complaints Endo Reports no additional complaints Physical Exam Vital Signs: Last Vital Signs Pulse 75 07/18/23 13:54 BP 145/72 H 07/18/23 13:54 BMI result Body Mass Index 30.2 Const General: healthy appearing, no acute distress and well developed Nutritional Appearance: obese Orientation/consciousness: patient oriented x3 HEENT Head: Yes normal to inspection, Yes normocephalic and Yes atraumatic Face and sinus: Yes normal facial exam Mouth: Normal oral and palatal mucosa present Throat: Yes posterior oropharynx normal, Yes tonsils normal and Yes uvula midline Eyes General: appearance normal, both eyes and all related structures Neck Neck: Yes normal visual inspection, Yes full ROM and Yes trachea midline Thyroid: Thyroid normal Resp Effort & Inspection: normal respiratory effort, able to speak in complete sentences, no tracheal deviation and symmetric chest movement Auscultation: clear to auscultation bilaterally Cardio Rate: regular rate Heart sounds: S1 normal heart sound present and S2 normal heart sound present GI Inspection: Yes normal to inspection, No distended and Yes obesity Palpation (GI): Soft to palpation, not firm, nontender and No hepatosplenomegaly present Auscultation: normal bowel sounds General: Yes no CVA tenderness Back/Spine/Pelvis Back: no CVA tenderness Skin General skin exam: elasticity normal, turgor normal and dry skin Neuro General: patient oriented x3 Psych Appearance: grossly normal Mental Status: mental status grossly normal Assessment & Plan Assessment & Plan (1) GERD (gastroesophageal reflux disease): Code(s): K21.9 - Gastro-esophageal reflux disease without esophagitis Qualifiers: Esophagitis presence: without esophagitis Qualified Code(s): K21.9 - Gastro-esophageal reflux disease without esophagitis Plan Patient may continue omeprazole on as needed basis. Discussed with patient avoiding dietary triggers late night snacking. Patient will follow-up in our office on as needed basis. Patient is PCP can assume prescriptions for omeprazole for her in the future. However patient symptoms will return or she will have any GI concerning symptoms she may call our office and make an appointment. She is agreeable to current plan and verbalizes understanding of instructions. She was given the opportunity to ask questions and all questions answered. Thank you for allowing me to participate in her care Coding Level of Care Code Est Pt Level 3 (69256) Diagnoses Gastroesophageal reflux disease without esophagitis K21.9 Esophagitis presence: without esophagitis Time Spent (min) 25 Comment 15 minutes spent with patient and additional 10 minute spent reviewing her records
== END 2023-07-18 14:12 | disposition home or self-care (01) ==
PROVIDERS: Visit Provider Nurse Practitioner Family
DX: K21.9 Gastro-esophageal reflux disease without esophagitis (principal)
CPT/HCPCS: 99213

== ENCOUNTER → 2023-07-18 13:51 | Outpatient (BNVA) | payer MEDICAID, SELFPAY | PROVIDERS: Visit Provider Nurse Practitioner Family | DX: K21.9 Gastro-esophageal reflux disease without esophagitis (principal) | CPT/HCPCS: 99212 ==

== ENCOUNTER 2023-08-12 12:59 | Outpatient (AMB) | payer MEDICAID, SELFPAY ==
--- NOTE | 2023-08-12 13:00 | A.OFFVIS_ITS ---
Intake Vital Signs 08/12/23 13:05 Height 5 ft 2 in Weight 172 lb BMI 31.5 BP 140/86 H Blood Pressure Location Rt brachial Position Sitting Pulse 68 Pulse Source Pulse Oximeter Intake Visit Reasons: E-FANCY STITCHER: Daytime Somnolence-Confirmed Allergies aspirin Allergy (Unknown, Verified 08/12/23 13:07) Rash HPI HPI Comments History of Present Illness Details 48 y/o female patient presents for new in-person visit for sleep consultation. Pt reports difficulty maintaining sleep and excessive daytime sleepiness. She does not have difficulty falling asleep. Pt reports snoring and gasping arousals and non refreshing sleep. Sleep questionnaire: Have you ever been diagnosed with a sleep disorder? No. Have you ever had a sleep study in the past? No. Have you ever been treated for a sleep disorder? No. Do you take medications for a sleep disorder? No. Do you snore? Yes. Do you wake up gasping at night? Yes. Do you have episodes of apneas? No. If yes, are they witnessed? No. Do you have episodes of nocturnal chest pain or dyspnea? Yes. Do you have difficulty initiating sleep? No. Do you have difficulty maintaining sleep? Yes. Do you wake up tired? Yes. Do you have headaches upon awakening? Yes. Do you wake up with dry mouth or throat? Yes, sometimes. Do you have GERD? Yes. Do you have nocturia? No. Do you have nocturnal leg cramps? Yes. Do you have symptoms of restless legs? Yes. Do you act out your dreams? No. Sleep hygiene questionnaire: What is your usual sleep routine? Usual bedtime is at 10:30-11 pm; Usual wake up time is at 4:30 am. Do you take naps? No. Is your sleep environment cool, dark, and quiet? No. Do you exercise? No. Do you take caffeine or other stimulants? Tea in the morning, afternoon sometimes at night. Do you use electronics in bed? No. What is your work schedule? 6 am to 2 pm. Hypersomnolence questionnaire: Do you have daytime tiredness or fatigue? Yes. Do you easily fall asleep when inactive? Yes. Have you ever had episodes of sudden weakness? No. Have you ever had episodes of sudden weakness associated with strong emotions? No. [facility] Medical History Asthma GERD (gastroesophageal reflux disease) Anemia Surgical History Hx of colonoscopy History of esophagogastroduodenoscopy (EGD) History of pubovaginal sling Family History Father No problems noted. Mother HTN (hypertension) Dementia Maternal Grandfather Diabetes Son Diabetes Social History Household Members: Children Alcohol intake: never Patient Tobacco Use Status: Never used Tobacco Review of Systems Const All systems reviewed & are unremarkable except as noted in HPI and below Physical Exam Vital Signs: Last Vital Signs Pulse 68 08/12/23 13:05 BP 140/86 H 08/12/23 13:05 BMI result Body Mass Index 31.5 Const General: cooperative and tired appearing Nutritional Appearance: obese Orientation/consciousness: patient oriented x3 Neck Neck: Yes full ROM and Yes supple Resp Effort & Inspection: normal respiratory effort and able to speak in complete sentences Neuro General: patient oriented x3 and gait normal Cranial nerves: Yes CN's II-XII intact bilaterally Cognition (Neuro): normal cognition Gait exam (Neuro): Normal gait present Psych Appearance: grossly normal Mental Status: mental status grossly normal Speech and movement: Normal speech and movement present Affect: normal affect Attitude: cooperative Assessment & Plan Assessment & Plan (1) Daytime sleepiness: Code(s): R40.0 - Somnolence (2) Snoring: Code(s): R06.83 - Snoring Plan Pt is advised to undergo home sleep study to assess for sleep apnea. Will f/u with pt after study to discuss results and appropriate treatment options. Advised patient to limit caffeine intake, and try magnesium 400 mg qHS for sleep and headache prevention. Pt to call with any worsening concerns or questions. Orders: Orders RT home sleep study Today R06.83 - Snoring, R40.0 - Somnolence Medications: New magnesium oxide 400 mg PO DAILY 30 tabs 3RF 30 days Coding Level of Care Code New Pt Level 3 (30187) Diagnoses Daytime sleepiness R40.0 Snoring R06.83
[2023-08-12 13:05] VITALS: BP 140/86; PULSE 68; BMI 31.5
== END 2023-08-12 13:43 | disposition home or self-care (01) ==
PROVIDERS: PCP Nurse Practitioner Primary Care; Visit Provider Nurse Practitioner Family
DX: R40.0 Somnolence (principal); R06.83 Snoring
CPT/HCPCS: 99203

== ENCOUNTER → 2023-08-12 12:59 | Outpatient (BNVA) | payer MEDICAID, SELFPAY | PROVIDERS: PCP Nurse Practitioner Primary Care; Visit Provider Nurse Practitioner Family | DX: R40.0 Somnolence (principal); R06.83 Snoring | CPT/HCPCS: 99212 ==

== ENCOUNTER → 2023-09-25 10:13 | Outpatient (REF) | payer MEDICAID, SELFPAY | LOC: HO.SL 10:13 | PROVIDERS: PCP Nurse Practitioner Primary Care; Visit Provider Nurse Practitioner Family | DX: R06.83 Snoring (principal); R40.0 Somnolence | CPT/HCPCS: 95806 ==

== ENCOUNTER → 2023-09-25 10:40 | Outpatient (BNV) | payer MEDICAID, SELFPAY | PROVIDERS: PCP Nurse Practitioner Primary Care; Visit Provider Psychiatry & Neurology Neurology | DX: R06.83 Snoring (principal) | CPT/HCPCS: 95806 ==

== ENCOUNTER 2023-12-23 14:33 | Outpatient (AMB) | payer MEDICAID, SELFPAY ==
[2023-12-23 14:34] VITALS: PULSE 72; O2SAT 98; BMI 31.5
--- NOTE | 2023-12-23 14:34 | MHC.OFFVIS ---
Vital Signs 12/23/23 14:34 Height 5 ft 2 in Weight 172 lb BMI 31.5 Pulse 72 Pulse Source Pulse Oximeter Pulse Oximetry (%) 98 Oxygen Delivery Method Room Air Intake Visit Reasons: Follow up Daytime Somnolence - Confirmed Intake Note: Patient presents for follow up daytime somnolence. Allergies aspirin Allergy (Unknown, Verified 12/23/23 14:35) Rash HPI Comments Details: 48 y/o female patient presents for follow up of sleep study. The home sleep study result was normal sleep test. The AHI was less than 1/hr and oxygen antonino was 90%. However, pt states that she did not sleep well, mostly stayed up. Pt reports difficulty maintaining sleep and excessive daytime sleepiness. She does not have difficulty falling asleep. Pt reports snoring and gasping arousals and non refreshing sleep. [facility] Medical History Asthma GERD (gastroesophageal reflux disease) Anemia Surgical History Hx of colonoscopy History of esophagogastroduodenoscopy (EGD) History of pubovaginal sling Family History Father No problems noted. Mother HTN (hypertension) Dementia Maternal Grandfather Diabetes Son Diabetes Social History Household Members: Children Alcohol intake: never Patient Tobacco Use Status: Never used Tobacco Review of Systems Const All systems reviewed & are unremarkable except as noted in HPI and below Physical Exam Vital Signs: Last Vital Signs Pulse 72 12/23/23 14:34 Pulse Ox 98 12/23/23 14:34 Oxygen Delivery Method Room Air 12/23/23 14:34 BMI result Body Mass Index 31.5 Const General: cooperative and tired appearing Nutritional Appearance: obese Orientation/consciousness: patient oriented x3 Neck Neck: Yes full ROM and Yes supple Resp Effort & Inspection: normal respiratory effort and able to speak in complete sentences Neuro General: patient oriented x3 and gait normal Cranial nerves: Yes CN's II-XII intact bilaterally Cognition (Neuro): normal cognition Gait exam (Neuro): Normal gait present Psych Appearance: grossly normal Mental Status: mental status grossly normal Speech and movement: Normal speech and movement present Affect: normal affect Attitude: cooperative Assessment & Plan Assessment & Plan (1) Daytime sleepiness: Code(s): R40.0 - Somnolence Category: Medical (2) Snoring: Code(s): R06.83 - Snoring Category: Medical Plan Pt is advised to undergo in lab sleep study to assess for sleep apnea. Will f/u with pt after study to discuss results and appropriate treatment options. Advised patient to limit caffeine intake, and try magnesium 400 mg qHS for sleep and headache prevention. Pt to call with any worsening concerns or questions. Orders: Orders RT PSG in-lab sleep study Today R06.83 - Snoring, R40.0 - Somnolence Coding Level of Care Code Est Pt Level 3 (36479) Diagnoses Daytime sleepiness R40.0 Snoring R06.83
== END 2023-12-23 14:49 | disposition home or self-care (01) ==
PROVIDERS: PCP Nurse Practitioner Primary Care; Visit Provider Nurse Practitioner Family
DX: R40.0 Somnolence (principal); R06.83 Snoring
CPT/HCPCS: 99213

== ENCOUNTER → 2023-12-23 14:33 | Outpatient (BNVA) | payer MEDICAID, SELFPAY | PROVIDERS: PCP Nurse Practitioner Primary Care; Visit Provider Nurse Practitioner Family | DX: R40.0 Somnolence (principal); R06.83 Snoring | CPT/HCPCS: 99212 ==

== ENCOUNTER → 2024-01-14 20:30 | Outpatient (REF) | payer MEDICAID, SELFPAY | LOC: HO.SL 20:30 | PROVIDERS: PCP Nurse Practitioner Primary Care; Visit Provider Nurse Practitioner Family | DX: R06.83 Snoring (principal); R40.0 Somnolence | CPT/HCPCS: 95810 ==

== ENCOUNTER → 2024-01-14 22:29 | Outpatient (BNV) | payer MEDICAID, SELFPAY | PROVIDERS: PCP Nurse Practitioner Primary Care; Visit Provider Psychiatry & Neurology Neurology | DX: R06.83 Snoring (principal); R40.0 Somnolence | CPT/HCPCS: 95810 ==

== ENCOUNTER 2024-03-19 07:50 | Outpatient (REF) | payer MEDICAID, SELFPAY | END 2024-03-19 07:51 | disposition home or self-care (01) | LOC: HO.MAMMO 07:50 | PROVIDERS: PCP Nurse Practitioner Primary Care; Visit Provider Nurse Practitioner Primary Care | DX: Z12.31 Encounter for screening mammogram for malignant neoplasm of breast (principal) | CPT/HCPCS: 77063; 77067 ==

== ENCOUNTER → 2024-03-19 08:00 | Outpatient (BNV) | payer MEDICAID, SELFPAY | PROVIDERS: PCP Nurse Practitioner Primary Care; Visit Provider Radiology Diagnostic Radiology | DX: Z12.31 Encounter for screening mammogram for malignant neoplasm of breast (principal) | CPT/HCPCS: 77063; 77067 ==

== ENCOUNTER 2024-06-24 08:37 | Outpatient (AMB) | payer MEDICAID, SELFPAY ==
[2024-06-24 08:58] VITALS: BMI 31.5
--- NOTE | 2024-06-24 08:58 | A.OFFVIS_ITS ---
Vital Signs 06/24/24 08:58 Height 5 ft 2 in Weight 172 lb BMI 31.5 Intake Visit Reasons: 6 mnts f/u appt Intake Note: Patient presents for sleep study results Allergies aspirin Allergy (Unknown, Verified 06/24/24 09:00) Rash Medication List - Last Reconciled 06/24/24 by SANA Peck albuterol sulfate 90 mcg/actuation (ProAir HFA) 2 puffs inhalation Q4-6H PRN cholecalciferol (vitamin D3) 50 mcg PO DAILY estradiol 0.01%(0.1mg/gram) vaginal magnesium oxide 400 mg PO DAILY 30 days mirabegron ER (Myrbetriq) 1 tab PO DAILY omeprazole 20 mg PO DAILY HPI Comments Details: 49-yr-old female presents for follow-up visit of sleep difficulties. Pt denies any significant interval medical history changes. Pt reports she started having significant sleep issues about a year ago. She states she is not sure hwy this started. She goes to bed between 10:30-11pm, and gets up around 5am. She feels like she is not sleeping when in bed. She can dream a lot, at times can dream quickly upon sleeping. She denies parasomnias, sleep paralysis, sudden weakness. She denies h/o EBV infection. She states her children do not sleep well either. Since the last visit, pt underwent In-lab PSG which revealed: AHI 0.1/hr and REM AHI 0/hr. Sleep latency was 0 min w/ REM sleep latency was 46.5 min. O2 antonino 94% w/ SpO2 < 88% x's 0 min, and average SpO2 96%; Periodic limb movement of sleep (PLMS) index: 11/hr; PLMS arousal index: 1.5/hr. [facility] Medical History Asthma GERD (gastroesophageal reflux disease) Anemia Surgical History Hx of colonoscopy History of esophagogastroduodenoscopy (EGD) History of pubovaginal sling Family History Father No problems noted. Mother HTN (hypertension) Dementia Maternal Grandfather Diabetes Son Diabetes Social History Household Members: Children Alcohol intake: never Patient Tobacco Use Status: Never used Tobacco Physical Exam Vital Signs: BMI result Body Mass Index 31.5 Const General: no acute distress Orientation/consciousness: patient oriented x3 HEENT Other: Mallampati stage Resp Effort & Inspection: normal respiratory effort and able to speak in complete sentences Neuro General: patient oriented x3 Psych Mental Status: mental status grossly normal Speech and movement: Clear speech present Attitude: cooperative Assessment & Plan Assessment & Plan (1) Hypersomnia: Code(s): G47.10 - Hypersomnia, unspecified Category: Medical Plan Reviewed results of sleep study report, results did not demonstrate sleep apnea or significant movement symptoms of sleep. However, pt had sleep onset of 0 minutes and earlier onset of REM sleep at 46 min. Thus, pt is advsied to undergo f/u in-lab PSG/MSLT to assess for idiopathic hypersomnia vs narcolepsy. Will follow-up upon review of above and patient to follow-up in clinic in 6 months or sooner prn. Orders: Orders RT PSG in-lab sleep titration Today G47.10 - Hypersomnia, unspecified Drug Screen Urine Today G47.10 - Hypersomnia, unspecified RT sleep testing - MSLT Today G47.10 - Hypersomnia, unspecified Coding Level of Care Code Est Pt Level 3 (53223) Diagnoses Hypersomnia G47.10 Lenora Sleepiness Scale Questions Sitting and reading: high chance of dozing Watching TV: high chance of dozing Sitting inactive in a theater, movie etc.: high chance of dozing As a passenger in a car for an hour without break: high chance of dozing Lying down in the afternoon when circumstances permit: high chance of dozing Sitting and talking to someone: slight chance of dozing Sitting quietly after lunch without alcohol: high chance of dozing In a car, while stopped for a few minutes in the traffic: would never doze ESS < 10: normal, ESS > 12: pathologic: 19
== END 2024-06-24 09:24 | disposition home or self-care (01) ==
PROVIDERS: PCP Nurse Practitioner Primary Care; Visit Provider Nurse Practitioner Family
DX: G47.10 Hypersomnia, unspecified (principal)
CPT/HCPCS: 99213

== ENCOUNTER → 2024-06-24 08:37 | Outpatient (BNVA) | payer MEDICAID, SELFPAY | PROVIDERS: PCP Nurse Practitioner Primary Care; Visit Provider Nurse Practitioner Family | DX: G47.10 Hypersomnia, unspecified (principal) | CPT/HCPCS: 99212 ==

== ENCOUNTER 2024-07-13 16:11 | Outpatient (RCR) | payer MEDICAID, SELFPAY | END 2024-07-14 15:24 | disposition home or self-care (01) | LOC: HO.PT 16:11 | PROVIDERS: PCP Nurse Practitioner Primary Care; Visit Provider Nurse Practitioner Primary Care | DX: M54.9 Dorsalgia, unspecified (principal); M54.2 Cervicalgia | CPT/HCPCS: 97110; 97112; 97140; 97161; 97530 ==

== ENCOUNTER 2024-07-16 09:03 | Outpatient (REF) | payer MEDICAID, SELFPAY ==
[2024-07-16 11:26] LABS: Cholesterol 193 mg/dL (<200); HDL Cholesterol 43 mg/dL (>40); LDL Cholesterol Calculated 136 mg/dL (<100); Triglycerides 72 mg/dL (<150)
[2024-07-16 11:57] LABS: Estimated Average Glucose 120 mg/dL; Hemoglobin A1C 197.4461 umol/L; Hemoglobin A1c % 5.8 % (<6.0); Total Hemoglobin (HGBA1C) 4947.9387 umol/L
[2024-07-16 12:15] LABS: Amphetamine Screen Urine Not Detected (Not Detect); Barbiturates, Urine Not Detected (Not Detect); Benzodiazepines Screen Urine Not Detected (Not Detect); Buprenorphine Scr Not Detected (Not Detect); Cannabinoid Screen Urine Not Detected (Not Detect); Cocaine Screen Urine Not Detected (Not Detect); Fentanyl, urine Not Detected (Not Detect); Methadone Screen, Urine Not Detected (Not Detect); Opiate Screen Urine Not Detected (Not Detect); Oxycodone Screen Urine Not Detected (Not Detect); Phencyclidine Screen Urine Not Detected (Not Detect)
== END 2024-07-16 09:04 | disposition home or self-care (01) ==
LOC: HO.HHCL 09:03
PROVIDERS: Nurse Practitioner Family; Visit Provider Nurse Practitioner Primary Care
DX: R73.03 Prediabetes (principal); G47.10 Hypersomnia, unspecified
CPT/HCPCS: 36415; 80061; 80307; 83036

== ENCOUNTER → 2024-10-27 14:22 | Outpatient (BNVA) | payer SELFPAY | PROVIDERS: PCP Nurse Practitioner Primary Care; Visit Provider Physician Assistant Medical | DX: Z02.1 Encounter for pre-employment examination (principal); R76.11 Nonspecific reaction to tuberculin skin test without active tuberculosis ==

== ENCOUNTER 2024-11-01 11:32 | Outpatient (REF) | payer MEDICAID, SELFPAY ==
--- NOTE | ~2024-11-01 | XR_ITS ---
.EXAMINATION: XR CHEST CLINICAL INFORMATION: Positive PPD, h/o BCG vaccine COMPARISON: July 08, 2019. TECHNIQUE: 2 views of the chest were obtained. FINDINGS: No consolidation, pleural effusion or pneumothorax. No hyperinflation. Cardiomediastinal silhouette size is normal. Osseous structures are intact. The possibility of butterfly/hemivertebra at T5 cannot be excluded. XR/XR chest 2V IMPRESSION: No acute airspace disease. Electronically signed by: Krystian Montgomery MD 11/01/2024 01:15 PM EST
--- OUTSIDE RECORDS SUMMARY | 2024-11-01 13:44 | XMS_ITS | Clinical Summary ---
Author Organization [employer] Address [address] [facility] [address] [place] [address] Care Team Providers Care Credit Administration Officer Name Role Phone Bret Novak DAVE Primary Care Provider [phone] Allergies Active Allergy Reactions Criticality Noted Date Comments Aspirin Rash Low 11/27/2017 Other reaction(s): Hives / Skin Rash Medications fluticasone (Flonase) 50 MCG/ACT nasal spray Administer 2 sprays into affected nostril(s) 1 (one) time each day. inhale 2 spray by intranasal route every day in each nostril 022 Active methylcellulose oral powderIndicatio ns:Prescribed elsewhere Take by mouth in the morning. [place] je tableta todos los montanez con agau Active omeprazole (PriLOSEC) [address] capsuleIndicati ons:prescribed elsewhere Take 20 mg by mouth 1 (one) time each day. [place] 1capsula via oral todos los montanez Active sennosides (Senokot) 8.6 MG tabletIndicatio ns:prescribed elsewhere Take 1 tablet by mouth in the morning. Time je tableta por oral al acostarse cuandos sea necesario for consitipatin Active cholecalciferol (Vitamin D-3) 50 MCG (2000 UT) capsule Take 2,000 Units by mouth in the morning. Active acetaminophen (Tylenol) 500 MG tabletIndicatio ns:Nonintractab le episodic headache, unspecified headache type Take 2 tablets (1,000 mg) by mouth every 6 (six) hours if needed for moderate pain or fever for up to 25 doses. 50 tablet 022 Active clotrimazole (Lotrimin) 1 % vaginal creamIndication s:Vulvovaginal Candidiasis Insert one applicator per vagina at bedtime for 7 nights 45 g 023 Active albuterol (5 MG/ML) 0.5% nebulizer solution Take 0.5 mL by nebulization every 4 (four) hours if needed for wheezing. 20 mL 1 023 Active Spacer/Aero-Hol ding Chambers (OptiChamber Nita) misc 1 each every 4 (four) hours if needed (asthma). 1 each 023 Active SUMAtriptan (Imitrex) 50 MG tablet TOME JE TABLETA POR VIA ORAL EVERY 2 HOURS BETWEEN DOSES NEEDE ONCE A DAY 30 023 Active Myrbetriq 25 MG 24 hr tablet TOME JE TABLETA TODOS LOS D 023 Active Ventolin HFA 108 (90 Base) MCG/ACT inhalerIndicati ons:Shortness of breath TOME DOS INHALACIONES POR VIA ORAL CADA CUATRO A SEIS HORAS CUANDO SEA NECESARIO 18 g 1 023 Active cyclobenzaprine (Flexeril) 10 MG tablet Take 1 tablet (10 mg) by mouth at bedtime for 10 days. 10 tablet 024 Active hydrocortisone 1 % ointment Apply topically 2 times daily. 56 g 1 024 Active estradiol (Estrace) 0.1 MG/GM vaginal cream APPLY 1 GM VAGINALLYEVERY NIGHT FOR TWO WEEKS THEN TWICE WEEKLY Active naproxen (Naprosyn) 500 MG tabletIndicatio ns:Radicular leg pain TAKE 1 TAB UP TO TWICE DAILY NEEDED FOR PAIN, TAKE WITH FOOD 60 tablet 024 Active budesonide-form oterol (Symbicort) 80-4.5 MCG/ACT inhalerIndicati ons:Mild persistent asthma without complication Inhale 2 puffs in the morning and at bedtime. Rinse mouth with water after use to reduce aftertaste and incidence of candidiasis. Do not swallow. 1 each 11 024 2024 Active cetirizine (ZyrTEC) 10 MG tablet TAKE 1 TABLET BY MOUTH EVERY DAY 90 tablet 1 025 Active buPROPion XL (Wellbutrin XL) 150 MG 24 hr tablet TOME 1 TABLETA POR VIA ORAL TODOS LOS MONTANEZ 30 tablet 5 025 Active cetirizine (ZyrTEC) 10 MG tabletIndicatio ns:Tinea corporis TOME JE TABLETA TODOS LOS MONTANEZ CUANDO SEA NECESARIO FOR ALLERGIES 90 tablet 1 023 2024 Discontinued(D uplicate order (will not trigger notification to Pharmacy)) cetirizine (ZyrTEC) 10 MG tablet Take 1 tablet (10 mg) by mouth Once per day. 30 tablet 5 024 2024 Discontinued buPROPion XL (Wellbutrin XL) 150 MG 24 hr tablet TAKE 1 TABLET BY MOUTH EVERY DAY 30 tablet 5 024 2024 Discontinued Active Problems Problem Noted Date Diagnosed Date White without pressure of peripheral retina of b oth eyes 07/16/2024 Localized gingival recession, minimal 12/11/2023 Dental plaque 02/26/2023 Dental caries 02/26/2023 Pre-diabetes 12/05/2022 Overview (07/08/2024): A1c 5.8% 12/05/2022. Repeat ordered, not yet obtained Lifestyle recommendations: be as active as able, ideally exercise 150min moderate intensity or 75min vigorous intensity weekly; increase intake of vegetables, fruits, whole grains, fish. Try to minimize intake of sugary or greasy food and drink. Use olive oil or vegetable, peanut, canola, or similar oil for cooking. Decrease or stop drinking alcohol if you drink, quit/decrease smoking if you smoke. Assessment & Plan (12/05/2022 10:52 AM EDT): A1c 5.8% 12/05/2022. Lifestyle modification discussed. F/u in 3 months with new PCP. Class 1 obesity 11/29/2022 Insomnia 11/29/2022 Urinary incontinence 11/29/2022 Migraines 08/15/2022 Depression 08/15/2022 Asthma 08/15/2022 Retinal hole of both eyes 08/15/2022 Cervical spondylosis without myelopathy 02/25/20 20 Cervical radiculopathy 01/17/2020 Overview (07/08/2024): Doing well w/ PT Anxiety 03/30/2018 Dyspnea 03/30/2018 Hand joint pain 03/30/2018 Overweight 03/30/2018 Resolved Problems Problem Noted Date Diagnosed Date Resolved Date Vulvovaginitis 12/05/2022 04/27/2024 Assessment & Plan (12/05/2022 10:46 AM EDT): -Wet prep with LIS significant for hyphae and budding yeast. -Given candidiasis has not resolved, will screen for DM. -Candidiasis prevention discussed. Urinary tract infection without hematuria 12/05/2022 04/27/2024 Overview (12/05/2022): Likely acute UTI based on history, exam and urine dip. No clinical evidence of acute abdomen or pyelonephritis. Denies antibiotic use in the past 90 days. Allergies reviewed. -Urinalysis and urine culture sent to the lab -Bactrim antibiotics started -Potential adverse effects of the medication reviewed -Discussed strategies to prevent future infections: Increase fluids. Urinate after sex. Avoid bladder irritants. -Report fever, chills, worsening symptoms or abdominal/flank pain -Advised to seek medical attention if no improvement or worsening of symptoms -ER precautions reviewed. Assessment & Plan (12/05/2022 10:52 AM EDT): Likely acute UTI based on history, exam and urine dip. No clinical evidence of acute abdomen or pyelonephritis. Denies antibiotic use in the past 90 days. Allergies reviewed. -Urinalysis and urine culture sent to the lab -Bactrim antibiotics started -Potential adverse effects of the medication reviewed -Discussed strategies to prevent future infections: Increase fluids. Urinate after sex. Avoid bladder irritants. -Report fever, chills, worsening symptoms or abdominal/flank pain -Advised to seek medical attention if no improvement or worsening of symptoms -ER precautions reviewed. Encounters Date Type Department Care Team Description 10/29/[address] [address] Emeli Pruett RN Results 10/29/2024 Patient Outreach [facility] [address] [place] [phone] Bret Novak ANP Care Coordination (CHW outreach for SDOH food needs-referral completed /) 10/29/2024 Patient Outreach [facility] [address] [place] [phone] Bret Novak ANP Pre-visit Planning (SDOH Screening positive and Tobacco screening negative) 10/18/2024 Refill [facility] [address] [place] [phone] Bret Novak ANP 10/14/2024 Refill [facility] [address] [place] [phone] Abby Buckner MD 09/10/[address] [address] Abrahan Wilson MA October recall 08/12/2024 Outside Procedure [facility] [address] [place] [address] Fred Mendozan, OD Presbyopia of both eyes (Primary Dx) 08/11/2024 11:00 AM EST Office Visit [facility] [address] [place] [address] Fred Mendozan, OD Hyperopia of both eyes (Primary Dx) 08/11/2024 Travel 08/09/2024 Telephone [facility] [address] [place] [phone] Lilli Snow, dental equipment technician Change 08/09/2024 Telephone [facility] [address] [place] [phone] Lilli Snow, RN Results 08/04/2024 Refill [facility] [address] [place] [phone] Bret Novak ANP Radicular leg pain from Last 3 Months Immunizations Name Administration Dates Next Due Influenza injectable quadriv alent IIV4 with preservative 06/07/2019 Influenza injectable quadriv alent preservative free 09/13/2022,06/12/2021,06/29/2020 Influenza, seasonal, injecta ble, preservative free 07/08/2024 Pfizer Covid-19 Vaccine 12+ fouzia-sucrose (Allen Cap) 01/14/2022 Pneumococcal Conjugate PCV 20 07/08/2024 Tdap 06/12/2021 Family History Medical History Relation Name Comments Breast cancer Cousin Diabetes Maternal Grandfather Hypertension Mother Glaucoma Neg Hx Relation Name Status Comments Cousin Other Maternal Grandfather Mother Social History Tobacco Use Types Packs/Day Years Used Date Smoking Tobacco: Never Passive Smoke Exposure: Never Smokeless Tobacco: Never Tobacco Cessation:Counseling Given: Not Answered Alcohol Use Standard Drinks/Week Comments Never 0 (1 standard drink = 0.6 oz pur e alcohol) Depression Answer Date Recorded Patient Health Questionnaire-9 Score 0 03/14/2023 Housing Stability Answer Date Recorded What is your housing situation today? I have krista hale 10/29/[address] you li ve. Do you have problems with any of the following? None of the above 10/29/2024 Food Insecurity Answer Date Recorded Within the past 12 months, y ou worried that your food would run out before you got money to buy more: Sometimes True 2023 Within the past 12 months,th e food you bought just didn't last and you didn't have enough money to get more: Sometimes True 04/09/2024 Transportation Answer Date Recorded In the past 12 months, has l ack of transportation kept you from medical appts, meetings, work or from getting things needed for daily living? No 04/09/2024 Utilities Answer Date Recorded In the past 12 months, has t he electric, gas, oil or water company threatened to shut off services in your home? No 10/29/2024 Depression Answer Date Recorded Patient Health Questionnaire-2 Score 0 03/14/2023 Internet Access Answer Date Recorded Internet Access Q1 Yes 05/03/2024 Internet Access Q2 Not on file 05/03/2024 Comments No Sex and Gender Information Value Date Recorded Sex Assigned at Female 07/01/2022 10:33 AM EDT Legal Sex Female 10:33 AM EDT Gender Identity Female 07/01/2022 10:33 AM EDT Sexual Orientation Straight 07/01/2022 10 :33 AM EDT Last Filed Vital Signs Vital Sign Reading Time Taken Comments Blood Pressure 122/94 07/08/2024 10:28 AM EST Pulse 82 07/08/2024 9:41 AM EST Temperature 36.4 ??C (97.5 ??F) 07/08/2024 9:41 AM ES T Respiratory Rate 16 07/08/2024 9:41 AM EST Oxygen Saturation 99% 07/08/2024 9:41 AM EST Inhaled Oxygen Concentration - - Weight 75.9 kg (167 lb 6.4 oz) 07/08/2024 9:41 A M EST Height 157.5 cm (5' 2 ) 07/08/2024 9:41 AM EST Body Mass Index 30.62 07/08/2024 9:41 AM EST Plan of Treatment Upcoming Encounters Date Type Department Care Team (Late st Contact Info) Description 11/09/2024 2:00 PM EDT Office Visit [facility] [address] [place], [place] [phone] Bret Novak, ANP [address] [place], [place] [phone] Health Maintenance Due Date Last Done Comments CT Colonography 1975 FIT DNA/Cologuard 1975 FIT 1975 FOBT 1975 Sigmoidoscopy 1975 Alcohol/Substance Use Screening 1987 Family Planning (PISQ) 1990 Hepatitis B Vaccines (1 of 3 - 19+ 3-dose series) 1994 Depression Screening 03/14/2024 03/14/2023, 03/14/20 23 COVID-19 Vaccine ( season) 2024 01/14/2022, 05/16/2021, 04/25/2021 Dental Oral Exam 06/12/2024 12/11/2023, , 04/25/2021, Additional history exists Dental Prophylaxis 06/12/2024 12/11/2023, 0 02/26/2023, 05/30/2022, Additional history exists Dental X-Ray: Bitewings 12/11/2024 12/11/19 24, 02/26/2023, 04/25/2021, Additional history exists Zoster Vaccines (1 of 2) 2025 Mammogram 03/19/2025 03/19/2024, 03/01, 04/08/2023, Additional history exists Tobacco Screening 07/09/2025 07/09/2024 Diabetes: Hemoglobin A1C 07/16/2025 024, 03/14/2023, 12/05/2022 SDOH Screening 10/29/2025 10/29/2024 Cervical Cancer Screening 02/07/2026 HPV/Cotest 02/07/2026 02/07/2021 Pap Smear 02/07/2026 02/07/2021 Dental X-Ray: Full Mouth 12/11/2026 12/11/2023, 10/03 DTaP/Tdap/Td Vaccines (2 - Td or Tdap) 06/12/2031 06/12/2021 Colonoscopy 07/03/2032 Colorectal Cancer Screening 07/03/2032 RSV Patients and Patients Aged 60 years or older (1 - 1-dose 75+ series) 2050 Hepatitis C Screening Completed 01/03/2021 HIV Screening Completed 07/03/2021, 01/03/2021 Influenza Vaccine Completed 07/08/2024, , 06/12/2021, Additional history exists Pneumococcal Vaccine: Pediatrics (0 to 5 Years) and At-Risk Patients (6 to 49) Years) Completed 07/08/2024 HIB Vaccines Aged Out No longer eligi ble based on patient's age to complete this topic HPV Vaccines Aged Out No longer eligi ble based on patient's age to complete this topic Hepatitis A Vaccines Aged Out No long er eligible based on patient's age to complete this topic IPV Vaccines Aged Out No longer eligi ble based on patient's age to complete this topic Meningococcal Vaccine Aged Out No ryan jose eligible based on patient's age to complete this topic RSV under 20 months Aged Out No longe r eligible based on patient's age to complete this topic Rotavirus Vaccines Aged Out No longer eligible based on patient's age to complete this topic Procedures Procedure Name Priority Date/Time Associated Diagnosis Comments XR CHEST 2 VIEWS Routine 11/01/2024 11:3 3 AM EST Positive PPD HEMOGLOBIN A1C Routine 07/16/2024 9:07 AM EST Pre-diabetes BI MAMMOGRAM SCREENING TOMOSYNTHESIS BILATERAL Routine 03/19/2024 8:14 AM EDT PROPHYLAXIS - ADULT Routine 12/11/2023 9 :00 AM EDT Dental plaque INTRAORAL - COMPLETE SERIES OF RADIOGRAPHIC IMAGES Routine 12/11/2023 9:00 AM EDT Secondary dental caries Dental plaque PERIODIC ORAL EVALUATION - ESTABLISHED PATIENT Routine 12/11/2023 9:00 AM EDT HIV 1/2 ANTIGEN/ANTIBODY, FOURTH GENERATION W/RFL Routine 07/03/2021 2:29 PM EDT HPV MRNA E6/E7 Routine 02/07/2021 9:15 AM EDT THINPREP PAP Routine 02/07/2021 9:15 AM EDT ZZZ HISTORICAL HEPATITIS PANEL, ACUTE W/REFLEX TO CONFIRMATION Routine 01/03/2021 10:01 AM EDT from Last 3 Months or Most Recently Relevant to Health Maintenance Results * XR Chest 2 Views (11/01/2024 11:33 AM EST) Anatomical Region Laterality Modality Chest Radiographic Kellie ging 11/01/2024 11:3 3 AM EST Narrative 11/01/2024 1:18 PM EST ?[facility] ?[address] ?[place] [address] ?XRay Report ? Signed ? Patient: Tay Anthony,Silvana J ?MR#: ?? [id number] ? : 1975 ?Acct:[id number] ? Age/Sex: 49 / F ?ADM Date: 11/01/24 ? Loc: HO.HHCX ? Attending Dr: Bret Novak LOCKSTITCH HEMMER ? Ordering Physician: BRET NOVAK NP ?? Date of Service: 11/01/24 ?? Procedure(s): XR chest 2V ?? Accession Number(s): [id number] ? cc: BRET NOVAK NP ? .EXAMINATION: ?? XR CHEST ? CLINICAL INFORMATION: ?? 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 COMPARISON: ?? July 08, 2019. ? TECHNIQUE: ?? 2 views of the chest were obtained. ? FINDINGS: ?? No consolidation, pleural effusion or pneumothorax. ?? No hyperinflation. ?? Cardiomediastinal silhouette size is normal. ?? Osseous structures are intact. The possibility of ?? butterfly/hemivertebra at T5 cannot be excluded. ? XR/XR chest 2V ?? IMPRESSION: ?? No acute airspace disease. ? Electronically signed by: ??Krystian Montgomery MD ??11/01/2024 01:15 PM ?? EST RP ? Dictated By: ?Krystian Elmore MD ? Signed By: ?<Electronically signed by Krystian Pruett MD in OV> ? 11/01/24 1315 ? DD/ 1133 ? TD/TT: 11/01/24 1200 ? Combination Technician: ? 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 TECHNIQUE: 2 views of the chest were obtained. FINDINGS: No consolidation, pleural effusion or pneumothorax. No hyperinflation. Cardiomediastinal silhouette size is normal. Osseous structures are intact. The possibility of butterfly/hemivertebra at T5 cannot be excluded. XR/XR chest 2V IMPRESSION: No acute airspace disease. Electronically signed by: Krystian Montgomery MD 11/01/2024 01:15 PM EST Dictated By: Krystian Elmore MD Signed By: <Electronically signed by Krystian Pruett MDin OV> 11/01/24 1315 DD/ 1133 TD/TT: 11/01/24 1200 Combination Technician: us Bret Novak ANP IMG XR PROCEDURES Final Result * Hemoglobin A1c (07/16/2024 9:07 AM EST) Hemoglobin A1c 5.8 <6.0 % [facility] Comment:Hemoglobin A1C Refer ence Range Adults: 4.8 - 6.0 % Non diabetic: < 6.0 % Goal: < 7.0 %Additional Action Suggested: > 8.0 %Note: Hemoglobin A1c results are invalid for patients with abnormal amounts of HbF. Blood transfusions may impact the HbA1c concentration in the patient sample. Estimated Average Glucose 120 mg/dL [facility] Comment:eAG = Estimated ave rage glucose which is %A1C expressed asaverage glucose, using the formula of the Q7F-[id number] Glucose study (ADAG), Diabetes Care, Vol.31,#8,2007 Blood Venous blood specimen / Unknown 07/16/2024 9:07 AM EST 07/16/2024 11:00 AM EST us Bret Novak ANP LAB BLOOD ORDERABLES Final Resul t [facility] [address] [place] [phone] * BI Mammogram Screening Tomosynthesis Bilateral (03/19/2024 8:14 AM EDT) Anatomical Region Laterality Modality Breast Bilateral Mammography 03/19/2024 8:14 AM EDT Narrative 04/13/2024 2:05 PM EDT ? [facility] ? [address] ?[place] [address] ? Mammography Report ? Signed ? Patient: Tay,Silvana ?MR#: [id number] ?? 7 ? : 1975 ?Acct:[id number] ? Age/Sex: 49 / F ?ADM Date: 07/19/24 ? Loc: HO.MAMMO ? Attending Dr: Bret Novak LOCKSTITCH HEMMER ? Ordering Physician: BRET NOVAK NP ?Results: 1Negative ? Date of Service: 03/19/24 ?Follow Up: 1 Year From Orig ?? inal Mammogram ? Procedure(s): MM tomosynthesis screening BI ?? Accession Number(s): [id number] ? cc: BRET NOVAK NP ? EXAMINATION: ?? MM SCREENING DIGITAL BREAST TOMOSYNTHESIS, BILATERAL ? CLINICAL INFORMATION: ? Screening. Asymptomatic. ? COMPARISON: ?? Mammography: This study is compared with prior exams dating back to ?? 2020. ? TECHNIQUE: ?? Digital breast tomosynthesis is performed in both the craniocaudal and ?? mediolateral oblique views along with computer-aided detection (CAD). ?? Synthesized 2D images are generated from the tomosynthesis. ? FINDINGS: ?? There are scattered areas of fibroglandular density (ACR BI-RADS breast ?? composition Category b). ? There are no significant masses, abnormal calcifications, or other ?? abnormalities. ? MM/MM tomosynthesis screening BI ?? IMPRESSION: ?? No mammographic evidence of malignancy. ? ASSESSMENT: ? BI-RADS BI-RADS 1 - Negative ? RECOMMENDATION: ?? Routine annual mammography screening. ? 1 year F/U ? This examination should not preclude the clinical evaluation of a ?? suspicious palpable abnormality. ? This patient's information was entered into a reminder system with a ?? target due date for their next mammogram. ? Dictated By: ?Alana Brock MD ? Signed By: ?<Electronically signed by Alana Brock MD in OV> ? 04/13/24 1400 ? DD/ 0814 ? TD/TT: ? Combination Technician: ? Procedure Note Sherley, Image - 04/13/2024 [place] [facility] [address] [place] [address] Mammography Report Signed Patient: Cuong Cross#: [id number] : 1975Acct:[id number] Age/Sex: 49 / FADM Date: 03/19/24 Loc: HO.MAMMO Attending Dr: Bret Novak LOCKSTITCH HEMMER Ordering Physician: BRET NOVAK NPResults: 1Negative Date of Service: 03/19/24Follow Up: 1 Year From Orig inal Mammogram Procedure(s): MM tomosynthesis screening BI Accession Number(s): [id number] cc: BRET NOVAK NP EXAMINATION: MM SCREENING DIGITAL BREAST TOMOSYNTHESIS, BILATERAL CLINICAL INFORMATION: Screening. Asymptomatic. COMPARISON: Mammography: This study is compared with prior exams dating back to 2020. TECHNIQUE: Digital breast tomosynthesis is performed in both the craniocaudal and mediolateral oblique views along with computer-aided detection (CAD). Synthesized 2D images are generated from the tomosynthesis. FINDINGS: There are scattered areas of fibroglandular density (ACR BI-RADS breast composition Category b). There are no significant masses, abnormal calcifications, or other abnormalities. MM/MM tomosynthesis screening BI IMPRESSION: No mammographic evidence of malignancy. ASSESSMENT: BI-RADS BI-RADS 1 - Negative RECOMMENDATION: Routine annual mammography screening. 1 year F/U This examination should not preclude the clinical evaluation of a suspicious palpable abnormality. This patient's information was entered into a reminder system with a target due date for their next mammogram. Dictated By: Alana Brock MD Signed By: <Electronically signed by Alana Brock MD in OV> 04/13/24 1400 DD/ 0814 TD/TT: Combination Technician: Bret Novak ANP IMG BI PROCEDURES Final Result * HIV 1/2 ANTIGEN/ANTIBODY,FOURTH GENERATION W/RFL (07/03/2021 2:29 PM EDT) Pathologist [facility] HIV-1/2 ANTIGEN AND ANTIBODIES, 4TH GENERATION W/ REFLEX NON-REACT MIGDALIA NON-REACT MIGDALIA [facility] Comment: HIV-1 antigen and HIV-1/HIV-2 antibodies were not detected. There is no laboratory evidence of HIV infection. ?? PLEASE NOTE: This information has been disclosed to you from records whose confidentiality may be protected by state law. ??If your state requires such protection, then the state law prohibits you from making any further disclosure of the information without the specific written consent of the person to whom it pertains, or as otherwise permitted by law. A general authorization for the release of medical or other information is NOT sufficient for this purpose. ? For additional information please refer to [email or web address] (This link is being provided for informational/ educational purposes only.) ? The performance of this assay has not been clinically validated in patients less than 2 years old. ?? 07/03/2021 2:29 PM EDT Leonard Iverson HEADER MACHINE OPERATOR LAB BLOOD ORDERABLES Final Result Performing Organization Address City/State/[facility] Co de Phone Number [facility] [address] * THINPREP PAP (02/07/2021 9:15 AM EDT) [facility] Clinical Information: NIL 11/2017 [facility] COMMENT SEE COMMENT [facility] Comment: EXPLANATORY NOTE: ? The Pap is a screening test for cervical cancer. It is ?? not a diagnostic test and is subject to false negative ?? and false positive results. It is most reliable when a ?? satisfactory sample, regularly obtained, is submitted ?? with relevant clinical findings and history, and when ?? the Pap result is evaluated along with historic and ?? current clinical information. ?? Business Partner : SEE COMMENT [facility] Comment: MXD, CT (ASCP) CT screening location: [address] ??[address] Interpretation/R esult: Negative for intraepithelial lesion or malignancy. [facility] LMP: 02/04/2021 [facility] Prev. BX: NONE GIVEN [facility] Prev. PAP: NONE GIVEN [facility] SOURCE: None given [facility] Statement Of Adequacy: SEE COMMENT [facility] Comment: Satisfactory for evaluation. Endocervical/transformation zone component present. 02/07/2021 9:15 AM EDT Kristie Hernandez [facility] ORDERABLES Final Result Performing Organization Address [facility] Co de Phone Number [facility] [address] * HPV mRNA E6/E7 (02/07/2021 9:15 AM EDT) HPV nRNA E6/E7 Not Detected Not Detected [facility] Comment: Methodology: Pain Management Nurse-Mediated Amplification This assay detects E6/E7 viral messenger RNA (mRNA) from 14 high-risk HPV types (16,18,31,33,35,39,45,51,52,56,58,59,66,68). ? The analytical performance characteristics of this assay have been determined by [employer]. The modifications have not been cleared or approved by the FDA. This assay has been validated pursuant to the CLIA regulations and is used for clinical purposes. ?? For additional information, please refer to http://education.[employer]/faq/ATP665u8 (This link if provided for information/ educational purposes only.) 02/07/2021 9:15 AM EDT Kristie Hernandez [facility] ORDERABLES Sharita l Result Performing Organization Address [facility] Co de Phone Number [facility] [address] * HEPATITIS PANEL, ACUTE W/REFLEX TO CONFIRMATION (01/03/2021 10:01 AM EDT) HEPATITIS A IGM NON-REACT MIGDALIA NON-REACT MIGDALIA [facility] Comment: ?? For additional information, please refer to ?? http://[employer]/faq/MEQ689 ?? (This link is being provided for informational/ educational purposes only.) ?? HEPATITIS B CORE ANTIBODY (IGM) NON-REACT [facility] NON-REACT [facility] HEPATITIS B SURFACE ANTIGEN NON-REACT [facility]IA NON-REACT [facility] HEPATITIS C ANTIBODY NON-REACT MIGDALIA NON-REACT MIGDALIA [facility] INDEX 0.03 <1.00 [facility] Comment: ?? HCV antibody was non-reactive. There is no laboratory ?? evidence of HCV infection. ?? In most cases, no further action is required. However, if recent HCV exposure is suspected, a test for HCV RNA (test code 69669) is suggested. ?? For additional information please refer to http://[employer]/faq/MBB09n6 (This link is being provided for informational/ educational purposes only.) ?? 01/03/2021 10:0 1 AM EDT us Leonard Iverson HEADER MACHINE OPERATOR HISTORICAL/NON ORDERA BLE LABS Final Result [facility] [address] from Last 3 Months or Most Recently Relevant to Health Maintenance Insurance [facility] C3 DENTAL-[facility] MEDICAID STAND ADULT Care Teams Credit Administration Officer Relationship Specialty Start Date End Date Bret Novak ANP [address] [place] [address] PCP - General Family Medicine 12/04/22
--- OUTSIDE RECORDS SUMMARY | 2024-11-01 13:44 | XMS_ITS | Encounter Summary ---
Author Organization [facility] Address [address] [facility] 7t [place] [address] Care Team Providers Care J2Ee Engineer Name Role Phone Damaris Cain NOTCHED BLADE LOADER Primary Care Provider Laura Melchor Primary Care Provider [phone] Encounter Details Date Type Department Care Team (Latest Contact Info) Description 05/30/2022 Abstract [facility] CONVERSIONS Dental, Provider, DDS Social History Tobacco Use Types Packs/Day Years Used Date Smoking Tobacco: Never Assessed Comments Unknown Sex and Gender Information Value Date Recorded Sex Assigned at Female 07/01/2022 10:33 AM EDT Legal Sex Female 10:33 AM EDT Gender Identity Female 07/01/2022 10:33 AM EDT Sexual Orientation Straight 07/01/2022 10 :33 AM EDT documented as of this encounter Plan of Treatment Upcoming Encounters Date Type Department Care Team ( Contact Info) Description 11/09/2024 2:00 PM EDT Office Visit [facility] [address] [place] [address] Laura Moncada ANP [address] [place] [address] documented as of this encounter Visit Diagnoses Not on filedocumented in this encounter Care Teams J2Ee Engineer Relationship Specialty Start Date End Date Damaris Cain NP PCP - General Family Medicine 04/23/21 12/03/22 Laura Moncada ANP [address] [place] [address] PCP - General Family Medicine 12/04/22 documented as of this encounter
--- OUTSIDE RECORDS SUMMARY | 2024-11-01 13:44 | XMS_ITS | Encounter Summary ---
Author Organization [facility] Address [address] [facility] 7t [place] [address] Care Team Providers Care Fishing Rod Mechanic Name Role Phone Damaris Cain NP Primary Care Provider Laura Melchor ANP Primary Care Provider [phone] Encounter Details Date Type Department Care Team (Late Contact Info) Description 08/09/2022 Abstract [facility] [address] [place] [address] Provider, MD Farzana Social History Tobacco Use Types Packs/Day Years Used Date Smoking Tobacco: Never Smokeless Tobacco: Never Alcohol Use Standard Drinks/Week Comments Never 0 (1 standard drink = 0.6 oz pur e alcohol) Comments Unknown Sex and Gender Information Value Date Recorded Sex Assigned at Female 07/01/2022 10:33 AM EDT Legal Sex Female 10:33 AM EDT Gender Identity Female 07/01/2022 10:33 AM EDT Sexual Orientation Straight 07/01/2022 10 :33 AM EDT COVID-19 Exposure Response Date Recorded In the last 10 days, have yo u been in contact with someone who was confirmed or suspected to have Coronavirus/COVID-19? No / Unsure 08/09/2022 2:08 PM EST documented as of this encounter Plan of Treatment Upcoming Encounters Date Type Department Care Team (Late st Contact Info) Description 11/09/2024 2:00 PM EDT Office Visit [facility] MED[facility] [address] [place] [address] Laura Moncada ANP [address] [place] [address] documented as of this encounter Visit Diagnoses Not on filedocumented in this encounter Care Teams Fishing Rod Mechanic Relationship Specialty Start Date End Date Damaris Cain NP PCP - General Family Medicine 04/23/21 12/03/22 Laura Moncada ANP [address] [place] [address] PCP - General Family Medicine 12/04/22 documented as of this encounter
--- OUTSIDE RECORDS SUMMARY | 2024-11-01 13:44 | XMS_ITS | Encounter Summary ---
Author Organization [employer] [facility] Address [address] [facility] 7t [place] [address] Care Team Providers Care Curriculum Developer Name Role Phone Damaris Cain BALL MAKER Primary Care Provider Laura Melchor Primary Care Provider [phone] Encounter Details Date Type Department Care Team (Latest Contact Info) Description 04/25/2021 Abstract [facility] CONVERSIONS Dental, Provider, DDS Social History Tobacco [...] Description 11/09/2024 2:00 PM EDT Office Visit [facility] MEDICINE [address] [place] [address] Laura Moncada ANP [address] [place] [address] documented as of this encounter Visit Diagnoses Not on filedocumented in this encounter Care Teams Curriculum Developer Relationship Specialty Start Date End Date Damaris Cain NP PCP - General Family Medicine 04/23/21 12/03/22 Laura Moncada ANP [address] [place] [address] PCP - General Family Medicine 12/04/22 documented as of this encounter
--- OUTSIDE RECORDS SUMMARY | 2024-11-01 13:45 | XMS_ITS | Encounter Summary ---
Author Organization [employer] Address [address] [facility] 7t [place] [address] Care Team Providers Care Italian Teacher Name Role Phone Laura Moncada Primary Care Provider [phone] Reason for Visit * Reason Comments Pre-visit Planning SDOH Screening posit gera and Tobacco screening negative Encounter Details Date Type Department Care Team ([facility] Contact Info) Description 10/29/2024 Patient Outreach [facility] MEDICINE [address] [place] [address] Laura Moncada ANP [address] [place] [address] Pre-visit Planning (SDOH Screening positive and Tobacco screening negative) Social History Tobacco Use Types Packs/Day Years Used Date Smoking Tobacco: Never Passive Smoke Exposure: Never Smokeless Tobacco: Never Alcohol Use Standard [...] AM EDT documented as of this encounter Progress Notes * Pavithra Shepherd - 10/29/2024 11:16 AM EST FUN[employer] Anthony placed successful outbound call to patient for pre-visit planning. Patient name and confirmed. Patient confirms appt date and time, and has transportation arrangements. Biggest concern for appointment at this time is no concerns for now. Patient advised to bring to appointment a photo id and insurance card. Appropriate screenings completed in anticipation of appointment. SDOH positive. Patient looking for assistance with Food insecurities: Sometimes. Referral will be placed. documented in this encounter Plan of Treatment Upcoming Encounters Date Type Department Care Team (Late st Contact Info) Description 11/09/2024 2:00 PM EDT Office Visit [facility] MEDICINE [address] [place] [address] Laura Moncada ANP [address] [place] [address] documented as of this encounter Visit Diagnoses Not on filedocumented in this encounter Additional Health Concerns Assessment Noted Time PHQ-9 Depression Total Score: 0 03/14/20 23 10:02 AM EDT documented as of this encounter Care Teams Italian Teacher Relationship Specialty Start Date End Date Laura Moncada ANP [address] [place] [address] PCP - General Family Medicine 12/04/22 documented as of this encounter
--- OUTSIDE RECORDS SUMMARY | 2024-11-01 13:45 | XMS_ITS | Encounter Summary ---
Author Organization [employer] [facility] Address [address] [facility] 7t [place] [address] Care Team Providers Care Patient Portal Concierge Name Role Phone Damaris Cain TIRE REPAIRER Primary Care Provider Laura Melchor Primary Care Provider [phone] Encounter Details Date Type Department Care Team (Latest Contact Info) Description 08/16/2019 Abstract [facility] CONVERSIONS Dental, Provider, DDS Social History Tobacco [...] Encounters Date Type Department Care Team ( st Contact Info) Description 11/09/2024 2:00 PM EDT Office Visit [facility] MEDICINE [address] [place] [address] Laura Moncada ANP [address] [place] [address] documented as of this encounter Visit Diagnoses Not on filedocumented in this encounter Care Teams Patient Portal Concierge Relationship Specialty Start Date End Date Damaris Cain NP PCP - General Family Medicine 04/23/21 12/03/22 Laura Moncada ANP [address] [place] [address] PCP - General Family Medicine 12/04/22 documented as of this encounter
--- OUTSIDE RECORDS SUMMARY | 2024-11-01 13:45 | XMS_ITS | Encounter Summary ---
Author Organization [facility] [facility] Address [address] [facility] 7t [place] [address] Care Team Providers Care Gin Clerk Name Role Phone Damaris Cain CAR RENTAL AGENT Primary Care Provider Laura Melchor Primary Care Provider [phone] Encounter Details Date Type Department Care Team (Latest Contact Info) Description 10/15/2018 Abstract [facility] CONVERSIONS Dental, Provider, DDS Social History Tobacco [...] Description 11/09/2024 2:00 PM EDT Office Visit [facility] MEDICINE [address] [place] [address] Laura Moncada ANP [address] [place] [address] documented as of this encounter Visit Diagnoses Not on filedocumented in this encounter Care Teams Gin Clerk Relationship Specialty Start Date End Date Damaris Cain NP PCP - General Family Medicine 04/23/21 12/03/22 Laura Moncada ANP [address] [place] [address] PCP - General Family Medicine 12/04/22 documented as of this encounter
--- OUTSIDE RECORDS SUMMARY | 2024-11-01 13:45 | XMS_ITS | Encounter Summary ---
Author Organization [employer] Address [address] [facility] 7t [place] [address] Care Team Providers Care Sales Producer Name Role Phone Laura Moncada Primary Care Provider [phone] Reason for Visit * Reason Comments Med Refill Encounter Details Date Type Department Care Team ([facility] st Contact Info) Description 10/18/2024 Refill [facility] MEDICINE [address] [place], [place] [phone] Laura Moncada ANP [address] [place] [address] Social History Tobacco Use Types Packs/Day Years Used Date Smoking Tobacco: Never Passive Smoke Exposure: Never Smokeless Tobacco: Never Alcohol Use Standard Drinks/Week Comments Never 0 (1 standard drink = 0.6 oz pur e alcohol) Depression Answer Date Recorded Patient Health Questionnaire-9 Score 0 03/14/2023 Housing Stability Answer Date Recorded What is your housing situation today? I have housing today, but I am worried about losing housing in the future 07/08/[address] you li ve. Do you have problems with any of the following? I am not sure 07/08/2024 Food Insecurity Answer Date Recorded Within the [...] to shut off services in your home? Yes 04/27/2024 Depression Answer Date Recorded Patient Health Questionnaire-2 [...] Description 11/09/2024 2:00 PM EDT Office Visit [facility] MEDICINE [address] [place] [address] Laura Moncada ANP [address] [place] [address] documented as of this encounter Visit Diagnoses Not on filedocumented in this encounter Additional Health Concerns Assessment Noted Time PHQ-9 Depression Total Score: 0 03/14/20 10:02 AM EDT documented as of this encounter Care Teams Sales Producer Relationship Specialty Start Date End Date Laura Moncada ANP [address] [place] [address] PCP - General Family Medicine 12/04/22 documented as of this encounter
--- OUTSIDE RECORDS SUMMARY | 2024-11-01 13:45 | XMS_ITS | Encounter Summary ---
Author Organization [employer] Address [address] [facility] 7t [place] [address] Care Team Providers Care Training Consultant Name Role Phone Laura Moncada Primary Care Provider [phone] Reason for Visit * Reason Comments Care Coordination CHW outreach for SDO H food needs-referral completed Encounter Details Date Type Department Care Team (Latest Contact Info) Description 10/29/2024 Patient Outreach [facility] MEDICINE [address] [place] [address] Laura Moncada ANP [address] [place] [address] Care Coordination (CHW outreach for SDOH food needs-referral completed /) Social History Tobacco Use Types Packs/Day Years [...] as of this encounter Progress Notes * Mika Chapa - 10/29/2024 12:12 PM EST CHW Mika Chapa, placed outbound call to patient for assistance with SDOH as a referral was received by the provider. Patient's name and were confirmed. Patient screened positive for the following SDOH food insecurities. CHW referral patient to the local list of pantries in the area for help. Patient verbalizes understanding, and able to agree with plan to follow up. Patient educated on ex tended clinic hours on Mondays through Wednesdays, and Walk-In Urgent Care Located in [facility].Patient provided with after-hours line for [facility], , which offer night time triage serviceand option to transfer to electronic funds transfer coordinator provider if needed. documented in this encounter Plan of Treatment Upcoming Encounters Date Type Department Care Team (Late st Contact Info) Description 11/09/2024 2:00 PM EDT Office Visit [facility] MEDICINE [address] [place] [address] Laura Moncada ANP [address] [place], [place] [phone] documented as of this encounter Visit Diagnoses Not on filedocumented in this encounter Additional Health Concerns Assessment Noted Time PHQ-9 Depression Total Score: 0 03/14/20 10:02 AM EDT documented as of this encounter Care Teams Training Consultant Relationship Specialty Start Date End Date Laura Moncada ANP [address] [place] [address] PCP - General Family Medicine 12/04/22 documented as of this encounter
--- OUTSIDE RECORDS SUMMARY | 2024-11-01 13:45 | XMS_ITS | Encounter Summary ---
Author Organization [employer] Address [address] [facility] [place] [address] Care Team Providers Care Machine Room Operator Name Role Phone Antwan Bret ACOSTA Primary Care Provider [phone] Reason for Visit * Reason Onset Date Comments Results 10/29/2024 Encounter Details Date Type Department Care Team ([facility] Contact Info) Description 10/29/2024 Telephone [facility] MEDICINE [address] [place], [place] [phone] Emeli Pruett RN [address] [place] [address] Results Social History Tobacco Use Types Packs/Day Years [...] t he electric, gas, oil or water [employer] threatened to shut off services in your [...] AM EDT documented as of this encounter Miscellaneous Notes * Telephone Encounter - Emeli Pruett RN - 10/30/2024 10:21 AM EST Telephone call placed to pt. Informed CXR ordered. Can come to [facility] any time next week to have it done. Pt verbalized understanding and denied having any further questions or concerns at this time. * Addendum Note - DAVE Lee - 10/29/2024 4:09 PM ESTAddended by: BRET NOVAK on: 10/29/2024 04:09 PM Modules accepted: Orders * Telephone Encounter - DAVE Lee - 10/29/2024 4:08 PM EST Will order chest x-ray for positive PPD * Telephone Encounter - Emeli Pruett RN - 10/29/2024 3:11 PM EST Pt walked into [employer] lobby with paper from [employer]. She went to to work connection to get PPD for job and it was positive. However, they think it is a reaction to previous BCG vaccine, they do not think that pt has TB. They are requesting PCP order CXR before she can start work. Scanned in this documentation under Media. documented in this encounter Plan of Treatment Upcoming Encounters Date Type Department Care Team (Late st Contact Info) Description 11/09/2024 2:00 PM EDT Office Visit [facility] MEDICINE [address] [place] [address] Bret Novak ANP [address] [place] [address] documented as of this encounter Procedures Procedure Name Priority Date/Time Associated Diagnosis Comments XR CHEST 2 VIEWS Routine 11/01/2024 11:3 3 AM EST Positive PPD documented in this encounter Results * XR Chest 2 Views (11/01/2024 11:33 AM EST) Anatomical Region Laterality Modality Chest Radiographic Kellie ging 11/01/2024 11:3 3 AM EST Narrative 11/01/2024 1:18 PM EST ?[facility] ?[address] ?[place] [address] ?XRay Report ? Signed ? Patient: Silvana Brown ?MR#: ?? [id number] ? : 1975 ?Acct:[id number] ? Age/Sex: 49 / F ?ADM Date: 11/01/24 ? Loc: HO.HHCX ? Attending Dr: Bret Novak NP ? Ordering Physician: BRET NOVAK NP ?? Date of Service: 11/01/24 ?? Procedure(s): XR chest 2V ?? Accession Number(s): [id number] ? cc: BRET NOVAK NP ? .EXAMINATION: [...] DD/ 1133 ? TD/TT: 11/01/24 1200 ? Senior Sql Server Developer: ? 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
--- OUTSIDE RECORDS SUMMARY | 2024-11-01 13:45 | XMS_ITS | Encounter Summary ---
Author Organization [employer] Address [address] [place] [address] Care Team Providers Care Technical Solutions Director Name Role Phone Antwan Laura ACOSTA Primary Care Provider Reason for Visit * Reason Comments Med Refill Encounter Details Date Type Department Care Team ([facility] st Contact Info) Description 10/14/2024 Refill [facility] [address] [place] [address] Abby Buckner MD [address] [place] [address] Social History Tobacco Use Types Packs/Day Years [...] Office Visit [facility] MEDICINE [address] [place] [address] Laura Moncada ANP [address] [place] [address] documented as of this encounter Visit Diagnoses Not on filedocumented in this encounter Additional Health Concerns Assessment Noted Time PHQ-9 Depression Total Score: 0 03/14/20 10:02 AM EDT documented as of this encounter Care Teams Technical Solutions Director Relationship Specialty Start Date End Date Laura Moncada ANP [address] [place] [address] PCP - General Family Medicine 12/04/22 documented as of this encounter
== END 2024-11-01 11:33 | disposition home or self-care (01) ==
LOC: HO.HHCX 11:32
PROVIDERS: Visit Provider Nurse Practitioner Primary Care
DX: R76.11 Nonspecific reaction to tuberculin skin test without active tuberculosis (principal)
CPT/HCPCS: 71046

== ENCOUNTER → 2024-11-01 11:33 | Outpatient (BNV) | payer MEDICAID, SELFPAY | PROVIDERS: Visit Provider Radiology Diagnostic Radiology | DX: R76.11 Nonspecific reaction to tuberculin skin test without active tuberculosis (principal) | CPT/HCPCS: 71046 ==

== ENCOUNTER → 2024-11-21 19:30 | Outpatient (REF) | payer MEDICAID, SELFPAY | LOC: HO.SL 19:30 | PROVIDERS: PCP Nurse Practitioner Primary Care; Visit Provider Nurse Practitioner Family | DX: G47.10 Hypersomnia, unspecified (principal) | CPT/HCPCS: 95805; 95810 ==

== ENCOUNTER → 2024-11-21 23:35 | Outpatient (BNV) | payer MEDICAID, SELFPAY | PROVIDERS: PCP Nurse Practitioner Primary Care; Visit Provider Psychiatry & Neurology Neurology | DX: G47.10 Hypersomnia, unspecified (principal) | CPT/HCPCS: 95810 ==

== ENCOUNTER 2024-11-22 07:47 | Outpatient (REF) | payer MEDICAID, SELFPAY ==
[2024-11-22 08:04] LABS: Amphetamine Screen Urine Not Detected (Not Detect); Barbiturates, Urine Not Detected (Not Detect); Benzodiazepines Screen Urine Not Detected (Not Detect); Buprenorphine Scr Not Detected (Not Detect); Cannabinoid Screen Urine Not Detected (Not Detect); Cocaine Screen Urine Not Detected (Not Detect); Fentanyl, urine Not Detected (Not Detect); Methadone Screen, Urine Not Detected (Not Detect); Opiate Screen Urine Not Detected (Not Detect); Oxycodone Screen Urine Not Detected (Not Detect); Phencyclidine Screen Urine Not Detected (Not Detect)
== END 2024-11-22 07:48 | disposition home or self-care (01) ==
LOC: HO.LNP 07:47
PROVIDERS: Visit Provider Nurse Practitioner Family
DX: R40.0 Somnolence (principal); G47.10 Hypersomnia, unspecified
CPT/HCPCS: 80307

== ENCOUNTER 2025-01-27 10:26 | Outpatient (REF) | payer MEDICAID, SELFPAY ==
--- OUTSIDE RECORDS SUMMARY | 2025-01-27 10:52 | XMS_ITS | Encounter Summary ---
Author Organization [employer] Address [address] [facility] 7t [place] [address] Care Team Providers Care Reduction Plant Supervisor Name Role Phone Laura Moncada Primary Care Provider [phone] Encounter Details Date Type Department Care Team (Latest Contact Info) Description 01/27/2025 Travel Social History Tobacco Use Types Packs/Day Years Used Date Smoking Tobacco: Never Passive Smoke Exposure: Never Smokeless Tobacco: Never Alcohol Use Standard Drinks/Week Comments Never 0 (1 standard drink = 0.6 oz pur e alcohol) Depression Answer Date Recorded Patient Health Questionnaire-9 Score 11 11/09/2024 Patient Health Questionnaire-9 Score 11 11/09/2024 Last PHQ-9: Questionnaire Data Not on file 0 11/09/2024 Housing Stability Answer Date Recorded What is [...] Answer Date Recorded Patient Health Questionnaire-2 Score 1 11/09/2024 Internet Access Answer Date Recorded Internet Access [...] Care Team (Late st Contact Info) Description 02/03/2025 9:15 AM EDT Office Visit [facility] MEDICINE 230 [place] [address] Laura Moncada ANP [address] [place] [address] documented as of this encounter Visit Diagnoses Not on filedocumented in this encounter Additional Health Concerns Assessment Noted Time PHQ-9 Depression Total Score: 11 11/09/ 025 3:03 PM EDT documented as of this encounter Care Teams Reduction Plant Supervisor Relationship Specialty Start Date End Date Laura Moncada ANP [address] [place] [address] PCP - General Family Medicine 12/04/22 documented as of this encounter
[2025-01-27 12:38] LABS: Anion Gap 12 (12-20); Blood Urea Nitrogen 17 mg/dL (9-16); Calcium 9.6 mg/dL (8.4-10.2); Carbon Dioxide 26 mmol/L (22-29); Chloride 106 mmol/L (96-108); Estimated Glomerular Filt Rate > 60; Glucose Random 77 mg/dL (60-115); Potassium 3.9 mmol/L (3.3-5.1); Sodium 140 mmol/L (135-145)
== END 2025-01-27 10:27 | disposition home or self-care (01) ==
LOC: HO.HHCL 10:26
PROVIDERS: Visit Provider Nurse Practitioner Primary Care
DX: I10 Essential (primary) hypertension (principal)
CPT/HCPCS: 36415; 80048

== ENCOUNTER 2025-02-11 13:32 | Outpatient (AMB) | payer OTHER, SELFPAY ==
[2025-02-11 13:36] VITALS: BP 140/70; PULSE 88; O2SAT 98; BMI 31.6
--- NOTE | 2025-02-11 13:36 | A.OFFVIS_ITS ---
Vital Signs 02/11/25 13:36 Height 5 ft 2 in Weight 173 lb BMI 31.6 BP 140/70 H Blood Pressure Location Rt brachial Position Sitting Pulse 88 Pulse Source Pulse Oximeter Pulse Oximetry (%) 98 Oxygen Delivery Method Room Air Intake Visit Reasons: 2 mo follow Aircraft Electrical Systems Specialist Required: No Aircraft Electrical Systems Specialist Services: Aircraft Electrical Systems Specialist Offered & Declined Accompanied by: Self / Same As Patient Allergies aspirin Allergy (Unknown, Verified 02/11/25 13:42) Rash Medication List - Last Reconciled 02/11/25 by SANA Peck albuterol sulfate 90 mcg/actuation (ProAir HFA) 2 puffs inhalation Q4-6H PRN cholecalciferol (vitamin D3) 50 mcg PO DAILY estradiol 0.01%(0.1mg/gram) vaginal losartan 25 mg PO DAILY magnesium oxide 400 mg PO DAILY 30 days mirabegron ER (Myrbetriq) 1 tab PO DAILY omeprazole 20 mg PO DAILY sertraline 25 mg PO DAILY 30 days HPI Comments Details: 49-yr-old female presents for follow-up visit of sleep difficulties. Pt denies any significant interval medical history changes. Since the last visit, patient underwent in-lab sleep study followed by MSLT sleep study, results of which were consistent with narcolepsy. 07/16/2024 and 11/22/2024 UA toxicology screen was brady negative. 11/21/2024, baseline in-lab sleep PSG: This 460 minute sleep study was again negative for sleep apnea or sleep disordered breathing or significant periodic limb movements of sleep- with AHI 0 per hour and O2 antonino 93% and average SpO2 97%. REM sleep latency was 11 minutes. Periodic limb movements of sleep 19 per hour with PLMS arousal index 4 per hour. Sleep efficiency was 91%. 11/22/2024 in-lab MSLT: Average sleep latency across 5 naps, 10 minutes 45 seconds, with 3 positive sleep onset REM (SOREMS)- with average REM latency 7 minutes. Since review of the sleep study, we reviewed these results with the patient. She reported a history of trying sertraline and bupropion for her mood, but sertraline at 50 mg caused dry throat, and bupropion was not effective. We reviewed different types of narcolepsy treatments, and patient opted to retry low-dose sertraline. Patient states that since starting sertraline 25 mg in the morning she is more awake during the day, however she is prone to fall asleep after 14:00. Upon review of the sleep study, we had ask patient to review with her family if anyone else has hypersomnia symptoms, and patient states just again that both of her children do not sleep well. She was advised to encourage them to speak to their healthcare providers about evaluating there sleep, as there may be genetic components to narcolepsy. 06/24/2024, previous HPI: Pt reports she started having significant sleep issues about a year ago. She states she is not sure hwy this started. She goes to bed between 10:30-11pm, and gets up around 5am. She feels like she is not sleeping when in bed. She can dream a lot, at times can dream quickly upon sleeping. She denies parasomnias, sleep paralysis, sudden weakness. She denies h/o EBV infection. She states her children do not sleep well either. Since the last visit, pt underwent In-lab PSG which revealed: AHI 0.1/hr and REM AHI 0/hr. Sleep latency was 0 min w/ REM sleep latency was 46.5 min. O2 antonino 94% w/ SpO2 < 88% x's 0 min, and average SpO2 96%; Periodic limb movement of sleep (PLMS) index: 11/hr; PLMS arousal index: 1.5/hr. FORMERLY [facility], [facility]–1983 Medical History Asthma GERD (gastroesophageal reflux disease) Anemia Surgical History Hx of colonoscopy History of esophagogastroduodenoscopy (EGD) History of pubovaginal sling Family History Father No problems noted. Mother HTN (hypertension) Dementia Maternal Grandfather Diabetes Son Diabetes Social History Household Members: Children Alcohol intake: never Patient Tobacco Use Status: Never used Tobacco Physical Exam Vital Signs: Last Vital Signs Pulse 88 02/11/25 13:36 BP 140/70 H 02/11/25 13:36 Pulse Ox 98 02/11/25 13:36 Oxygen Delivery Method Room Air 02/11/25 13:36 BMI result Body Mass Index 31.6 Const General: no acute distress Orientation/consciousness: patient oriented x3 Resp Effort & Inspection: normal respiratory effort and able to speak in complete sentences Neuro General: patient oriented x3 Psych Mental Status: mental status grossly normal Speech and movement: Clear speech present Attitude: cooperative Assessment & Plan Assessment & Plan (1) Narcolepsy: Code(s): G47.419 - Narcolepsy without cataplexy Category: Medical Qualifiers: Narcolepsy type: primary without cataplexy Qualified Code(s): G47.419 - Narcolepsy without cataplexy (2) Hypersomnia: Code(s): G47.10 - Hypersomnia, unspecified Category: Medical Plan Reviewed interval In-lab PSG/MS to results, which are consistent with the narcolepsy diagnosis. Patient does not have any other clear comorbid conditions that would otherwise explain her hypersomnia and rapid sleep onset REM activity. Narcolepsy patient education information previously shared with patient. Continue sertraline 25 mg daily in a.m.- patient is hesitant to increase dose as before F 50 mg she had dry throat. We will monitor for exacerbation of periodic limb movement of sleep with continuing sertraline. Start methylphenidate 5-10 mg daily at 13:00, to allow this to take effect by 14:00 (the time when the activating effects of sertraline or wearing off). Reviewed benefits/side effects/cautions related to methylphenidate use including but not limited to anorexia, elevated BP/heart rate, and the need to securely store the methylphenidate. Advised to avoid driving sleepy- may use methylphenidate prior to longer drives. Patient encouraged to discuss having her children sleep difficulties evaluated- has narcolepsy may be genetic. Pt to follow-up in 2 months or sooner prn. Medications: New methylphenidate HCl Daily at 1pm. Partial Fill upon patient request. 5 - 10 mg (1 - 2 x 5 mg) PO DAILY 30 days 60 tabs 0RF G47.10 - Hypersomnia, unspecified, G47.419 - Narcolepsy without cataplexy Refilled sertraline in the morning 25 mg PO DAILY 30 days 30 tabs 6RF Coding Level of Care Code Est Pt Level 4 (43933) Diagnoses Primary narcolepsy without cataplexy G47.419 Narcolepsy type: primary without cataplexy Hypersomnia G47.10
--- OUTSIDE RECORDS SUMMARY | 2025-02-11 13:46 | XMS_ITS | Clinical Summary ---
Author Organization [employer] Address [address] [place] [address] [address] [place] [address] Care Team Providers Care Asbestos Shingle Roofer Name Role Phone Bret Novak Primary Care Provider [phone] Allergies Active Allergy Reactions Criticality Noted Date Comments Aspirin Rash Low 11/27/2017 Other reaction(s): Hives / Skin Rash Medications fluticasone (Flonase) 50 MCG/ACT nasal spray Administer 2 sprays into affected nostril(s) 1 (one) time each day. inhale 2 spray by intranasal route every day in each nostril 022 Active methylcellulose oral powderIndicatio ns:Prescribed elsewhere Take by mouth Once per day. [place] je tableta todos los montanez con agau Active sennosides (Senokot) 8.6 MG tabletIndicatio ns:prescribed elsewhere Take 1 tablet by mouth Once per day. Time je tableta por oral al acostarse cuandos sea necesario for consitipatin Active cholecalciferol (Vitamin D-3) 50 MCG (2000 UT) capsule Take 2,000 Units by mouth Once per day. Active acetaminophen (Tylenol) 500 MG tabletIndicatio ns:Nonintractab le episodic headache, unspecified headache type Take 2 tablets (1,000 mg) by mouth every 6 (six) hours if needed for moderate pain or fever for up to 25 doses. 50 tablet 022 Active clotrimazole (Lotrimin) 1 % vaginal creamIndication s:Vulvovaginal Candidiasis Insert one applicator per vagina at bedtime for 7 nights 45 g 023 Active Spacer/Aero-Hol ding Chambers (OptiChamber Nita) misc 1 each every 4 (four) hours if needed (asthma). 1 each 023 Active SUMAtriptan (Imitrex) 50 MG tablet 023 Active Myrbetriq 25 MG 24 hr tablet 023 Active cyclobenzaprine (Flexeril) 10 MG tablet Take 1 tablet (10 mg) by mouth at bedtime for 10 days. 10 tablet 024 Active hydrocortisone 1 % ointment Apply topically 2 times daily. 56 g 1 024 Active naproxen (Naprosyn) 500 MG tabletIndicatio ns:Radicular [...] LOS MONTANEZ 30 tablet 5 025 Active albuterol (2.5 MG/3ML) 0.083% nebulizer solutionIndicat ions:Moderate persistent asthma with acute exacerbation Take 3 mL (2.5 mg) by nebulization every 6 (six) hours if needed for wheezing or shortness of breath. 75 mL 2 025 2025 Active losartan (Cozaar) 25 MG tabletIndicatio ns:Essential hypertension Take 1 tablet (25 mg) by mouth Once per day. 90 tablet 025 2025 Active albuterol (Ventolin HFA) 108 (90 Base) MCG/ACT inhalerIndicati ons:Shortness of breath Inhale 2 puffs every 6 (six) hours if needed for wheezing or shortness of breath. 20.1 g 1 025 Active estradiol (Estrace) 0.1 MG/GM vaginal creamIndication s:Postmenopause atrophic vaginitis 2g as needed intravaginally once daily for 1 week and then twice weekly 42.5 g 1 025 Active omeprazole (PriLOSEC) [address] capsuleIndicati ons:prescribed elsewhere Take 20 mg by mouth 1 (one) time each day. [place] 1capsula via oral todos los montanez 2024 Discontinued(T herapy completed) Ventolin HFA 108 (90 Base) MCG/ACT inhalerIndicati ons:Shortness of breath TOME DOS INHALACIONES POR VIA ORAL CADA CUATRO A SEIS HORAS CUANDO SEA NECESARIO 18 g 1 023 2024 Discontinued(R eorder (will not trigger notification to Pharmacy)) estradiol (Estrace) 0.1 MG/GM vaginal cream 2024 Discontinued(R eorder (will not trigger notification to Pharmacy)) Active Problems Problem Noted Date Diagnosed Date Primary narcolepsy without cataplexy 02/03/2025 Overview (02/03/2025): Per pt, dx'd at [facility] 10/2024 Essential hypertension 02/03/2025 Overview (02/03/2025): doing well, dx'd 2024, on losartan 25mg Elevated blood pressure read ing without diagnosis of hypertension 11/09/2024 White without pressure of peripheral retina of [...] eyes 08/15/2022 Cervical spondylosis without myelopathy 02/25/20 Cervical radiculopathy 01/17/2020 Overview (07/08/2024): Doing well [...] Encounters Date Type Department Care Team Description 02/03/2025 9:15 AM EDT [address] [facility] [place] [address] Bret Novak ANP Shortness of breath (Primary Dx); Pre-diabetes; Primary narcolepsy without cataplexy; Postmenopause atrophic vaginitis; Change in nail appearance; Essential hypertension 02/03/2025 Travel 02/02/[address] [place] [address] Bret Novak ANP chart prep 01/27/2025 Results Follow-Up [address] [address] Bret Novak ANP Basic Metabolic Panel 01/27/2025 Travel 01/13/[address] [address] Bret Novak ANP Medication Question 12/21/2024 2:00 PM EDT Clinical Support [address] [place] [address] Yesenia Carrizales RN Essential hypertension (Primary Dx); Elevated blood pressure reading without diagnosis of hypertension 12/21/2024 Travel 12/16/[address] [address] Bret Novak ANP Insurance 12/04/[address] [address] Emeli Pruett, RAFITA BP Check 12/03/[address] [address] Bret Novak ANP appt cancel on 02/10/25 (I book the appt on 02/03/25 follow up Bp and Asthma.) 12/03/2024 Travel 11/12/2024 Population Health Risk Score [facility] Department [address] [place] [address], [place] [phone] Provider, Population Health Generic from Last 3 Months Immunizations Immunization Administration Dates Next Due Influenza injectable quadriv [...] is your housing situation today? I have kristaana paula hale 10/29/[address] you [...] Sign Reading Time Taken Comments Blood Pressure 124/78 02/03/2025 9:29 AM EDT Pulse 79 02/03/2025 9:29 AM EDT Temperature 36.3 ??C (97.3 ??F) 11/09/2024 2:36 PM ED T Respiratory Rate 20 02/03/2025 9:29 AM EDT Oxygen Saturation 99% 02/03/2025 9:29 AM EDT Inhaled Oxygen Concentration - - Weight 78 kg (172 lb) 02/03/2025 9:29 AM EDT Height 157.5 cm (5' 2 ) 02/03/2025 9:29 AM EDT Body Mass Index 31.46 02/03/2025 9:29 AM EDT Plan of Treatment Health Maintenance Due Date Last Done Comments CT Colonography 1975 FIT DNA/Cologuard 1975 FIT 1975 FOBT 1975 Sigmoidoscopy 1975 Family Planning (PISQ) 1990 Hepatitis B Vaccines (1 of 3 - 19+ 3-dose series) 1994 COVID-19 Vaccine (2023- season) 2024 01/14/2022, 05/16/2021, 04/25/2021 Dental Oral Exam 06/12/2024 12/11/2023, , 04/25/2021, Additional history exists Dental Prophylaxis 06/12/2024 12/11/2023, 0 02/26/2023, 05/30/2022, Additional history exists Dental X-Ray: Bitewings 12/11/2024 12/11/19 24, 02/26/2023, 04/25/2021, Additional history exists Zoster Vaccines (1 of 2) 2025 Mammogram 03/19/2025 03/19/2024, 03/01, 04/08/2023, Additional history exists Depression Monitoring 05/12/2025 11/09/2024, 025 Diabetes: Hemoglobin A1C 07/16/2025 024, 03/14/2023, 12/05/2022 SDOH Screening 10/29/2025 10/29/2024 Alcohol/Substance Use Screening 11/09/2025 11/09/2024 Disability Screening 02/03/2026 02/03/2025 Tobacco Screening 02/03/2026 02/03/2025 Cervical Cancer Screening 02/07/2026 HPV/Cotest 02/07/2026 02/07/2021 Pap Smear 02/07/2026 02/07/2021 Dental X-Ray: Full Mouth 12/11/2026 12/11/2023, 10/03 Lipid Panel 07/16/2029 07/16/2024, 03/14/2023 DTaP/Tdap/Td Vaccines (2 - Td or Tdap) 06/12/2031 06/12/2021 Colonoscopy 07/03/2032 Colorectal Cancer Screening 07/03/2032 RSV Patients and Patients Aged 60 years or older (1 - 1-dose 75+ series) 2050 Hepatitis C Screening Completed 01/03/2021 HIV Screening Completed 07/03/2021, 01/03/2021 Influenza Vaccine Completed 07/08/2024, , 06/12/2021, Additional history exists Pneumococcal Vaccine: 50+ Years Completed 07/08/2024 HIB Vaccines Aged Out No [...] patient's age to complete this topic Meningococcal B Vaccine Aged Out No l onger eligible based on patient's age to complete [...] Procedure Name Priority Date/Time Associated Diagnosis Comments BASIC METABOLIC PANEL Routine 01/27/2025 10:28 AM EDT Essential hypertension HEMOGLOBIN A1C Routine 07/16/2024 9:07 AM EST Pre-diabetes LIPID PANEL, STANDARD Routine 07/16/2024 9:07 AM EST Pre-diabetes BI [...] Recently Relevant to Health Maintenance Results * (ABNORMAL) Basic Metabolic Panel (01/27/2025 10:28 AM EDT) Sodium 140 135 - 145 mmol/L LABS Potassium 3.9 3.3 - 5.1 mmol/L LABS Chloride 106 96 - 108 mmol/L LABS Carbon Dioxide 26 22 - 29 mmol/L LABS Anion Gap 12 12 - 20 LABS Urea Nitrogen (BUN) 17(H) 9 - 16 mg/dL LABS Creatinine, Serum 0.84 0.5 - 1.4 mg/dL LABS Estimated Glomerular Filt Rate >60 LABS Comment:Chronic Kidney Disea se: Estimated GFR < 60 mL/min/1.52h3Uboafd Kidney Disease: Estimated GFR < 15 mL/min/1.73m2 Glucose 77 60 - 115 mg/dL LABS Calcium 9.6 8.4 - 10.2 mg/dL LABS Blood Venous blood specimen / Unknown 01/27/2025 10:28 AM EDT 01/27/2025 11:43 AM EDT Bret Novak ANP LAB BLOOD ORDERABLES Final Resul t Performing Organization Address [facility] de Phone Number LABS [address] [place] [phone] * Hemoglobin A1c (07/16/2024 9:07 AM EST) Hemoglobin A1c 5.8 <6.0 % [facility] Comment:Hemoglobin A1C Refer ence Range Adults: 4.8 - 6.0 % Non diabetic: < 6.0 % Goal: < 7.0 %Additional Action Suggested: > 8.0 %Note: Hemoglobin A1c results are invalid for patients with abnormal amounts of HbF. Blood transfusions may impact the HbA1c concentration in the patient sample. Estimated Average Glucose 120 mg/dL LABS Comment:eAG = Estimated ave rage glucose which is %A1C expressed asaverage glucose, using the formula of the J8S-GtqxnydHwygnke Glucose study (ADAG), Diabetes Care, Vol.31,#8,Apr. 2007 Blood Venous blood specimen / Unknown 07/16/2024 9:07 AM EST 07/16/2024 11:00 AM EST Bret Novak ANP LAB BLOOD ORDERABLES Final Resul t Performing Organization Address [facility] Co de Phone Number LABS [address] [place] [phone] * (ABNORMAL) Lipid Panel, Standard (07/16/2024 9:07 AM EST) Triglycerides 72 <150 mg/dL [facility] Comment:Desirable Triglyceri de: less than 150 mg/dLBorderline High Triglyceride 150-199 mg/dLHigh Triglyceride: 200-499 mg/dLVery High Triglyceride: greater than or equal to 5OO mg/dL Cholesterol 193 <200 mg/dL LABS Comment:Desirable Cholestero l: less than 200 mg/dLBorderline High Cholesterol: 200-239 mg/dLHigh Cholesterol: greater than 239 mg/dL LDL Cholesterol Calculated 136(H) <100 mg/dL LABS Comment:Desirable LDL: less than 100 mg/dLNear Optimal/Above Optimal LDL: 110- 129 mg/dLBorderline High LDL: 130-159 mg/dLHigh LDL: 160-189 mg/dLVery High LDL: greater than or equal to 190 mg/dL HDL Cholesterol 43 >40 mg/dL [facility] Comment:Desirable HDL: great er than 40 mg/dL Note: This HDL assay may give artificially low results in patients with liver disease. Blood Venous blood specimen / Unknown 07/16/2024 9:07 AM EST 07/16/2024 11:00 AM EST Bret Novak [facility] LAB BLOOD ORDERABLES Final Resul t LABS [address] [place] [address] [phone] * BI Mammogram Screening Tomosynthesis Bilateral (03/19/2024 8:14 AM EDT) Anatomical Region Laterality Modality Breast Bilateral Mammography 03/19/2024 8:14 AM EDT Narrative 04/13/2024 2:05 PM EDT ? [facility] [place] ? [address] ?[place] [address] ? Mammography Report ? Signed ? Patient: Tay,Silvana ?MR#: [id number] ?? 7 ? : 1975 ?Acct:[id number] ? Age/Sex: 49 / F ?ADM Date: 07/19/24 ? Loc: HO.MAMMO ? Attending Dr: Bret Novak QUALITY CONTROL AUDITOR ? Ordering Physician: BRET NOVAK NP ?Results: 1Negative ? Date of Service: 03/19/24 ?Follow Up: 1 Year From Orig ?? inal Mammogram ? Procedure(s): MM tomosynthesis screening BI ?? Accession Number(s): [id number] ? cc: BRET NOVAK NP ? EXAMINATION: [...] in OV> ? 04/13/24 1400 ? DD/ ? TD/TT: ? Public Service Officer: ? Procedure Note [place]ter, Image - [facility] [address] [place] [address] Mammography Report Signed Patient: Cuong Cross#: [id number] 7 : 1975Acct:[id number] Age/Sex: 49 / FADM Date: 03/19/24 Loc: HOYohannesMAMMO Attending Dr: Bret Novak NP Ordering Physician: BRET NOVAKesults: 1Negative Date of Service: 03/19/24Follow Up: 1 Year From Orig inal Mammogram Procedure(s): MM tomosynthesis screening BI Accession Number(s): [id number] cc: BRET NOVAK NP EXAMINATION: MM SCREENING [...] in OV> 04/13/24 1400 DD/ 0814 TD/TT: Public Service Officer: us Bret ACOSTA IMG BI PROCEDURES Final Result * HIV 1/2 ANTIGEN/ANTIBODY,FOURTH GENERATION W/RFL (07/03/2021 2:29 PM EDT) HIV-1/2 ANTIGEN AND ANTIBODIES, 4TH GENERATION W/ REFLEX NON-REACT MIGDALIA NON-REACT MIGDALIA [facility] Comment: HIV-1 antigen and HIV-1/HIV-2 [...] ? For additional information please refer to http://education.One[employer]./faq/CEX637 (This link is being provided for informational/ educational purposes only.) ? The performance of this assay has not been clinically validated in patients less than 2 years old. ?? 07/03/2021 2:29 PM EDT us Leonard Iverson SOFT SUGAR SUPERVISOR LAB BLOOD ORDERABLES Final Result [facility] [address] * THINPREP PAP (02/07/2021 9:15 AM EDT) Clinical Information: NIL 11/2017 [facility] COMMENT SEE COMMENT [facility] [...] historic and ?? current clinical information. ?? Legal Consultant : SEE COMMENT [facility] Comment: MXD, CT (ASCP) CT screening location: [address] ??[address] Interpretation/R esult: Negative for intraepithelial lesion or malignancy. [facility] LMP: 02/04/2021 [facility] Prev. BX: NONE GIVEN [facility] Prev. PAP: NONE GIVEN [facility] SOURCE: None given [facility] Statement Of Adequacy: SEE COMMENT [facility] Comment: Satisfactory for evaluation. Endocervical/transformation zone component present. 02/07/2021 9:15 AM EDT Kristie BUSTILLOS LAB PATHOLOGY ORDERABLES Final Result Performing Organization Address [facility] de Phone Number [facility] [address] [place] [address], * HPV mRNA E6/E7 (02/07/2021 9:15 AM EDT) HPV nRNA E6/E7 Not Detected Not Detected [facility] Comment: Methodology: Avionics Systems Technician-Mediated Amplification This assay detects E6/E7 viral messenger RNA (mRNA) from 14 high-risk HPV types (16,18,31,33,35,39,45,51,52,56,58,59,66,68). ? The analytical performance characteristics of this assay have been determined by [employer]. The modifications have not been cleared or approved by the FDA. This assay has been validated pursuant to the CLIA regulations and is used for clinical purposes. ?? For additional information, please refer to http://education.One[employer]faq/RBY387t0 (This link if provided for information/ educational purposes only.) 02/07/2021 9:15 AM EDT Kristie BUSTILLOS LAB BLOOD ORDERABLES Sharita l Result Performing Organization Address [facility] Co de Phone Number [facility] [address] [place] [address], * HEPATITIS PANEL, ACUTE W/REFLEX TO CONFIRMATION (01/03/2021 10:01 AM EDT) HEPATITIS A IGM NON-REACT MIGDALIA NON-REACT MIGDALIA [facility] Comment: ?? For additional information, please refer to ?? http://MicroJob/faq/UPN780 ?? (This link is being provided for informational/ educational purposes only.) ?? HEPATITIS B CORE ANTIBODY (IGM) NON-REACT MIGDALIA NON-REACT MIGDALIA [facility] HEPATITIS B SURFACE ANTIGEN NON-REACT MIGDALIA NON-REACT MIGDALIA [facility] HEPATITIS C ANTIBODY NON-REACT MIGDALIA NON-REACT MIGDALIA [facility] INDEX 0.03 <1.00 [facility] Comment: ?? HCV antibody was non-reactive. There is no laboratory ?? evidence of HCV infection. ?? In most cases, no further action is required. However, if recent HCV exposure is suspected, a test for HCV RNA (test code 43401) is suggested. ?? For additional information please refer to http://[employer]faq/VXE22z1 (This link is being provided for informational/ educational purposes only.) ?? 01/03/2021 10:0 1 AM EDT us Leonard Iverson SOFT SUGAR SUPERVISOR HISTORICAL/NON ORDERA BLE LABS Final Result [facility] [address] from Last 3 Months or Most Recently Relevant to Health Maintenance Insurance HS FULL [facility] STAND ADULT Care Teams Asbestos Shingle Roofer Relationship Specialty Start Date End Date Bret Novak ANP [address] [place] [address] PCP - General Family Medicine 12/04/22
== END 2025-02-11 14:45 | disposition home or self-care (01) ==
PROVIDERS: PCP Nurse Practitioner Primary Care; Visit Provider Nurse Practitioner Family
DX: G47.419 Narcolepsy without cataplexy (principal); G47.10 Hypersomnia, unspecified
CPT/HCPCS: 99214

== ENCOUNTER → 2025-02-11 13:32 | Outpatient (BNVA) | payer MEDICAID, SELFPAY | PROVIDERS: PCP Nurse Practitioner Primary Care; Visit Provider Nurse Practitioner Family | DX: G47.419 Narcolepsy without cataplexy (principal); G47.10 Hypersomnia, unspecified | CPT/HCPCS: 99212 ==

== ENCOUNTER 2025-03-25 07:30 | Outpatient (REF) | payer OTHER, SELFPAY ==
--- OUTSIDE RECORDS SUMMARY | 2025-03-25 07:33 | XMS_ITS | Clinical Summary ---
Author Organization [employer] Address [address] [place] [address] 7 [place] [address] Care Team Providers Care Home Appliance Tech Name Role Phone Bret Novak Primary Care Provider [phone] Allergies Active Allergy Reactions Criticality Noted Date Comments Aspirin Rash Low 11/27/2017 Other reaction(s): Hives / Skin Rash Medications fluticasone (Flonase) 50 MCG/ACT nasal spray Administer 2 sprays into affected nostril(s) 1 (one) time each day. inhale 2 spray by intranasal route every day in each nostril 02/29/20 22 Active methylcellulose oral powderIndication s:Prescribed elsewhere Take by mouth Once per day. [place] je tableta todos los montanez con agau Active sennosides (Senokot) 8.6 MG tabletIndication s:prescribed elsewhere Take 1 tablet by mouth Once per day. Time je tableta por oral al acostarse cuandos sea necesario for consitipatin Active cholecalciferol (Vitamin D-3) 50 MCG (1999 UT) capsule Take 2,000 Units by mouth Once per day. Active acetaminophen (Tylenol) 500 MG tabletIndication s:Nonintractable episodic headache, unspecified headache type Take 2 tablets (1,000 mg) by mouth every 6 (six) hours if needed for moderate pain or fever for up to 25 doses. 50 tablet 08/09/20 22 Active clotrimazole (Lotrimin) 1 % vaginal creamIndications :Vulvovaginal Candidiasis Insert one applicator per vagina at bedtime for 7 nights 45 g 12/06/19 23 Active Spacer/Aero-Hold ing Chambers (OptiChamber Nita) misc 1 each every 4 (four) hours if needed (asthma). 1 each 01/23/20 23 Active SUMAtriptan (Imitrex) 50 MG tablet 03/06/20 23 Active Myrbetriq 25 MG 24 hr tablet 01/26/20 23 Active cyclobenzaprine (Flexeril) 10 MG tablet Take 1 tablet (10 mg) by mouth at bedtime for 10 days. 10 tablet 01/30/20 24 Active hydrocortisone 1 % ointment Apply topically 2 times daily. 56 g 1 01/30/20 24 Active naproxen (Naprosyn) 500 MG tabletIndication s:Radicular leg pain TAKE 1 TAB UP TO TWICE DAILY NEEDED FOR PAIN, TAKE WITH FOOD 60 tablet 08/04/20 24 Active budesonide-formo terol (Symbicort) 80-4.5 MCG/ACT inhalerIndicatio ns:Mild persistent asthma without complication Inhale 2 puffs in the morning and at bedtime. Rinse mouth with water after use to reduce aftertaste and incidence of candidiasis. Do not swallow. 1 each 11 08/09/20 24 025 Active cetirizine (ZyrTEC) 10 MG tablet TAKE 1 TABLET BY MOUTH EVERY DAY 90 tablet 1 10/14/19 25 Active buPROPion XL (Wellbutrin XL) 150 MG 24 hr tablet TOME 1 TABLETA POR VIA ORAL TODOS LOS MONTANEZ 30 tablet 5 10/19/19 25 Active albuterol (2.5 MG/3ML) 0.083% nebulizer solutionIndicati ons:Moderate persistent asthma with acute exacerbation Take 3 mL (2.5 mg) by nebulization every 6 (six) hours if needed for wheezing or shortness of breath. 75 mL 2 11/10/19 25 026 Active losartan (Cozaar) 25 MG tabletIndication s:Essential hypertension Take 1 tablet (25 mg) by mouth Once per day. 90 tablet 01/13/20 25 026 Active albuterol (Ventolin HFA) 108 (90 Base) MCG/ACT inhalerIndicatio ns:Shortness of breath Inhale 2 puffs every 6 (six) hours if needed for wheezing or shortness of breath. 20.1 g 1 02/04/20 25 Active estradiol (Estrace) 0.1 MG/GM vaginal creamIndications :Postmenopause atrophic vaginitis 2g as needed intravaginally once daily for 1 week and then twice weekly 42.5 g 1 02/04/20 25 Active Active Problems Problem Noted Date Diagnosed Date [...] Encounters Date Type Department Care Team Description 03/16/2025 Telephone [facility] [address] [place] [phone] Bret Novak ANP June02/03/2025 9:15 AM EDT Office Visit [facility] [address] [place] [address] Bret Novak ANP Shortness of breath (Primary Dx); Pre-diabetes; Primary narcolepsy without cataplexy; Postmenopause atrophic vaginitis; Change in nail appearance; Essential hypertension 02/03/2025 Travel 02/02/2025 Telephone [facility] [address] [place] [address] Bret Novak ANP chart prep 01/27/2025 Results Follow-Up [address] [address] Bret Novak ANP Basic Metabolic Panel 01/27/2025 Travel 01/13/2025 Telephone [facility] [address] [place] [address] Bret Novak ANP Medication Question from Last 3 Months Immunizations Immunization Administration [...] 79 02/03/2025 9:29 AM EDT Temperature 36.3 C (97.3 F) 11/09/2024 2:36 PM EDT Respiratory Rate 20 02/03/2025 9:29 AM EDT Oxygen Saturation 99% 02/03/2025 9:29 AM EDT Inhaled Oxygen Concentration - - Weight 78 kg (172 lb) 02/03/2025 9:29 AM EDT Height 157.5 cm (5' 2 ) 02/03/2025 9:29 AM EDT Body Mass Index 31.46 02/03/2025 9:29 AM EDT Plan of Treatment Upcoming Encounters Date Type Department Care Team (Late st Contact Info) Description 06/06/2025 3:00 PM EDT Office Visit [facility] [address] [place] [address] Bret Novak ANP [address] [place], [place] [phone] Health Maintenance Due Date Last Done Comments CT Colonography 1975 FIT DNA/Cologuard 1975 FIT 1975 FOBT 1975 Sigmoidoscopy 1975 Family Planning (PISQ) 1990 Hepatitis B Vaccines (1 of 3 - 19+ 3-dose series) 1994 COVID-19 Vaccine ( - 2023- season) 2024 01/14/2022, 05/16/2021, 04/25/2021 Dental Oral Exam 06/12/2024 12/11/2023, , 04/25/2021, Additional history exists Dental Prophylaxis 06/12/2024 12/11/2023, 0 02/26/2023, 05/30/2022, Additional history exists Dental X-Ray: Bitewings 12/11/2024 12/11/19 24, 02/26/2023, 04/25/2021, Additional history exists Zoster Vaccines (1 of 2) 2025 Mammogram 03/19/2025 03/19/2024, 03/01, 04/08/2023, Additional history exists Influenza Vaccine (#1) 2025 , 09/13/2022, 06/12/2021, Additional history exists Depression Monitoring 05/12/2025 11/09/2024, [...] Td or Tdap) 06/12/2031 06/12/2021 Colonoscopy 07/03/2032 07/03/2022 Colorectal Cancer Screening 07/03/2032 RSV Patients and Patients Aged 60 years or older (1 - 1-dose 75+ series) 2050 Hepatitis C Screening Completed 01/03/2021 HIV Screening Completed 07/03/2021, 01/03/2021 Pneumococcal Vaccine: 50+ Years Completed 07/08/2024 HIB [...] ESTABLISHED PATIENT Routine 12/11/2023 9:00 AM EDT HM COLONOSCOPY Routine 07/03/2022 HIV 1/2 ANTIGEN/ANTIBODY, FOURTH GENERATION W/RFL Routine [...] EDT) Sodium 140 135 - 145 mmol/L [facility] Potassium 3.9 3.3 - 5.1 mmol/L [facility] Chloride 106 96 - 108 mmol/L [facility] Carbon Dioxide 26 22 - 29 mmol/L [facility] Anion Gap 12 12 - 20 [facility] Urea Nitrogen (BUN) 17(H) 9 - 16 mg/dL [facility] Creatinine, Serum 0.84 0.5 - 1.4 mg/dL [facility] Estimated Glomerular Filt Rate >60 [facility] Comment:Chronic Kidney Disea se: Estimated GFR < 60 mL/min/1.15m1Akfeln Kidney Disease: Estimated GFR < 15 mL/min/1.73m2 Glucose 77 60 - 115 mg/dL [facility] Calcium 9.6 8.4 - 10.2 mg/dL [facility] Blood Venous blood specimen / Unknown 01/27/2025 10:28 AM EDT 01/27/2025 11:43 AM EDT us Bret Novak [facility] LAB BLOOD ORDERABLES Final Resul t [facility] [address] [place] [address] [phone] * Hemoglobin A1c (07/16/2024 9:07 AM EST) Hemoglobin A1c 5.8 <6.0 % [facility] Comment:Hemoglobin A1C Refer ence Range Adults: 4.8 - 6.0 % Non diabetic: < 6.0 % Goal: < 7.0 %Additional Action Suggested: > 8.0 %Note: Hemoglobin A1c results are invalid for patients with abnormal amounts of HbF. Blood transfusions may impact the HbA1c concentration in the patient sample. Estimated Average Glucose 120 mg/dL [facility] Comment:eAG = Estimated ave rage glucose which is %A1C expressed asaverage glucose, using the formula of the F2N-UzzhisgUyzfbwr Glucose study (ADAG), Diabetes Care, Vol.31,#8,Apr. 2007 Blood Venous blood specimen / Unknown 07/16/2024 9:07 AM EST 07/16/2024 11:00 AM EST [facility] LAB BLOOD ORDERABLES Final Resul t [facility] [address] [place] [phone] * (ABNORMAL) Lipid Panel, Standard (07/16/2024 9:07 AM EST) Triglycerides 72 <150 mg/dL [facility] Comment:Desirable Triglyceri de: less than 150 mg/dLBorderline High Triglyceride 150-199 mg/dLHigh Triglyceride: 200-499 mg/dLVery High Triglyceride: greater than or equal to 5OO mg/dL Cholesterol 193 <200 mg/dL [facility] Comment:Desirable Cholestero l: less than 200 mg/dLBorderline High Cholesterol: 200-239 mg/dLHigh Cholesterol: greater than 239 mg/dL LDL Cholesterol Calculated 136(H) <100 mg/dL [facility] Comment:Desirable LDL: less than 100 mg/dLNear Optimal/Above Optimal LDL: 110- 129 mg/dLBorderline High LDL: 130-159 mg/dLHigh LDL: 160-189 mg/dLVery High LDL: greater than or equal to 190 mg/dL HDL Cholesterol 43 >40 mg/dL [facility] Comment:Desirable HDL: great er than 40 mg/dL Note: This HDL assay may give artificially low results in patients with liver disease. Blood Venous blood specimen / Unknown 07/16/2024 9:07 AM EST 07/16/2024 11:00 AM EST Bret Novak ANP LAB BLOOD ORDERABLES Final Resul t [facility] [address] [place] [address] [phone] * BI Mammogram Screening Tomosynthesis Bilateral (03/19/2024 8:14 AM EDT) Anatomical Region Laterality Modality Breast Bilateral Mammography 03/19/2024 8:14 AM EDT Narrative 04/13/2024 2:05 PM EDT [address] [place] [address] Mammography Report Signed Patient: Silvana Cross MR#: [id number] 7 : 1975 Acct:[id number] Age/Sex: 49 / F ADM Date: 03/19/24 Loc: MAMMO Attending Dr: Bret Novak BROTH SETTER Ordering Physician: BRET NOVAK NP Results: 1Negative Date of Service: 03/19/24 Follow Up: 1 Year From Orig ina Mammogram Procedure(s): MM tomosynthesis screening BI Accession Number(s): [id number] cc: BRET NOVAK NP EXAMINATION: MM SCREENING [...] Brock MD in OV> 04/13/24 1400 DD/ 3 TD/TT: Console Manager: Procedure Note Donotuseinterpreter, Image - 04/13/2024 [facility] [address] [place], [place] [address] Mammography Report Signed Patient: Cuong Cross#: [id number] 7 : 1975Acct:[id number] Age/Sex: 49 / FADM Date: 03/19/24 Loc: MAMMO Attending Dr: Bret Novak NP Ordering Physician: BRET NOVAK NPResults: 1Negative Date of Service: 03/19/24Follow Up: 1 Year From Orig inal Mammogram Procedure(s): MM tomosynthesis screening BI Accession Number(s): [id number] cc: BRET NOVAK NP EXAMINATION: MM SCREENING [...] MD Signed By: <Electronically signed by Alana rBock MD in OV> 04/13/24 1400 DD/ 0814 TD/TT: Console Manager: Bret Novak ANP IMG BI PROCEDURES Final Result * Hm Colonoscopy (07/03/2022) [facility] Colonoscopy Normal Normal Historical Provider HEALTH MAINTENANCE Final Result * HIV 1/2 ANTIGEN/ANTIBODY,FOURTH GENERATION W/RFL (07/03/2021 2:29 PM EDT) [facility] HIV-1/2 ANTIGEN AND ANTIBODIES, 4TH GENERATION W/ REFLEX NON-REACT MIGDALIA NON-REACT MIGDALIA [facility] Comment: HIV-1 antigen and HIV-1/HIV-2 antibodies were not detected. There is no laboratory evidence of HIV infection. PLEASE NOTE: This information has been disclosed to you from records whose confidentiality may be protected by state law. If your state requires such protection, then the state law prohibits you from making any further disclosure of the information without the specific written consent of the person to whom it pertains, or as otherwise permitted by law. A general authorization for the release of medical or other information is NOT sufficient for this purpose. For additional information please refer to http://education.PhotoSpotLand/faq/TOA344 (This link is being provided for informational/ educational purposes only.) The performance of this assay has not been clinically validated in patients less than 2 years old. 07/03/2021 2:29 PM EDT Leonard Iverson DIVINITY TEACHER LAB BLOOD ORDERABLES Final Result Performing Organization Address City/State/[facility] Co de Phone Number [facility] [address] * THINPREP PAP (02/07/2021 9:15 AM EDT) [facility] Clinical Information: NIL 11/2017 [facility] COMMENT SEE COMMENT [facility] Comment: EXPLANATORY NOTE: The Pap is a screening test for cervical cancer. It is not a diagnostic test and is subject to false negative and false positive results. It is most reliable when a satisfactory sample, regularly obtained, is submitted with relevant clinical findings and history, and when the Pap result is evaluated along with historic and current clinical information. It Systems Analyst Consultant : SEE COMMENT [facility] Comment: MXD, CT (ASCP) CT screening location: [facility] [address] [address] Interpretation/R esult: Negative for intraepithelial lesion or malignancy. [facility] LMP: 02/04/2021 [facility] Prev. BX: NONE GIVEN [facility] Prev. PAP: NONE GIVEN [facility] SOURCE: None given [facility] Statement Of Adequacy: SEE COMMENT [facility] Comment: Satisfactory for evaluation. Endocervical/transformation zone component present. 02/07/2021 9:[address] [facility] LAB PATHOLOGY ORDERABLES Final Result Performing Organization Address [facility] de Phone Number [facility] [address] [place] [address], * HPV mRNA E6/E7 (02/07/2021 9:15 AM EDT) HPV nRNA E6/E7 Not Detected Not Detected [facility] Comment: Methodology: Astrophysics Professor-Mediated Amplification This assay detects E6/E7 viral messenger RNA (mRNA) from 14 high-risk HPV types (16,18,31,33,35,39,45,51,52,56,58,59,66,68). The analytical performance characteristics of this assay have been determined by [employer]. The modifications have not been cleared or approved by the FDA. This assay has been validated pursuant to the CLIA regulations and is used for clinical purposes. For additional information, please refer to http://education.Orgger.[employer]/faq/RTO142r7 (This link if provided for information/ educational purposes only.) 02/07/2021 9:15 AM EDT [facility]LO[facility] ORDERAB[facility] Sharita l Result Performing Organization Address [facility] Co de Phone Number [facility] [address] * HEPATITIS PANEL, ACUTE W/REFLEX TO CONFIRMATION (01/03/2021 10:01 AM EDT) HEPATITIS A IGM NON-REACT MIGDALIA NON-REACT MIGDALIA [facility] Comment: For additional information, please refer to http://education.PhotoSpotLand/faq/EIS440 (This link is being provided for informational/ educational purposes only.) HEPATITIS B CORE ANTIBODY (IGM) NON-REACT MIGDALIA NON-REACT MIGDALIA [facility] HEPATITIS B SURFACE ANTIGEN NON-REACT MIGDALIA NON-REACT MIGDALIA [facility] HEPATITIS C ANTIBODY NON-REACT MIGDALIA NON-REACT MIGDALIA [facility] INDEX 0.03 <1.00 [facility] Comment: HCV antibody was non-reactive. There is no laboratory evidence of HCV infection. In most cases, no further action is required. However, if recent HCV exposure is suspected, a test for HCV RNA (test code 68834) is suggested. For additional information please refer to http://Tunes.com.[employer]SpotLand/faq/NHY12b4 (This link is being provided for informational/ educational purposes only.) 01/03/2021 10:0 1 AM EDT us Leonard Iverson DIVINITY TEACHER HISTORICAL/NON ORDERA BLE LABS Final Result [facility] [address] from Last 3 Months or Most Recently Relevant to Health Maintenance Insurance [facility] F[facility] [place] ST[place] ADULT Care Teams Home Appliance Tech Relationship Specialty Start Date End Date Bret Novak ANP [address] [place] [phone] PCP - General Family Medicine 12/04/22
== END 2025-03-25 07:31 | disposition home or self-care (01) ==
LOC: HO.MAMMO 07:30
PROVIDERS: Visit Provider Nurse Practitioner Primary Care
DX: Z12.31 Encounter for screening mammogram for malignant neoplasm of breast (principal)
CPT/HCPCS: 77063; 77067

== ENCOUNTER → 2025-03-25 07:45 | Outpatient (BNV) | payer OTHER, SELFPAY | PROVIDERS: Visit Provider Internal Medicine | DX: Z12.31 Encounter for screening mammogram for malignant neoplasm of breast (principal) | CPT/HCPCS: 77063; 77067 ==

== ENCOUNTER 2025-04-14 09:25 | Outpatient (AMB) | payer OTHER, SELFPAY ==
--- NOTE | 2025-04-14 09:50 | MHC.OFFVIS ---
Vital Signs 04/14/25 09:51 Height 5 ft 2 in Weight 175 lb BMI 32.0 BP 120/84 Blood Pressure Location Rt brachial Position Sitting Pulse 72 Pulse Source Pulse Oximeter Pulse Oximetry (%) 95 Oxygen Delivery Method Room Air Intake Visit Reasons: 2mo follow up Intake Note: Patient presents follow up Narcolepsy medication Technology Lab Teacher Required: No Technology Lab Teacher Services: Technology Lab Teacher Offered & Declined Accompanied by: Self / Same As Patient Allergies aspirin Allergy (Unknown, Verified 04/14/25 09:54) Rash Medication List - Last Reconciled 04/14/25 by SANA Peck albuterol sulfate 90 mcg/actuation (ProAir HFA) 2 puffs inhalation Q4-6H PRN cholecalciferol (vitamin D3) 50 mcg PO DAILY estradiol 0.01%(0.1mg/gram) vaginal losartan 25 mg PO DAILY magnesium oxide 400 mg PO DAILY 30 days methylphenidate HCl 5 - 10 mg (1 - 2 x 5 mg) PO DAILY 30 days mirabegron ER (Myrbetriq) 1 tab PO DAILY omeprazole 20 mg PO DAILY sertraline 25 mg PO DAILY 30 days HPI Comments Details: 49-yr-old female presents for follow-up visit of sleep difficulties. Pt denies any significant interval medical history changes. Since the last visit, the patient has started sertraline 25 mg q.a.m. and methylphenidate 5 mg daily at 1-2 pm. She states that this is helping to prevent episodes of follow-up sleep when inactive during the day. Overall, she states she is tolerating this well. Though she does note some recurrence of headache, which he has had in the past. She is not sure if it is related to starting the medication or not. Sometimes we will start to fall asleep at night, and then have a little difficulty falling back to sleep. She states she is eating well-no no significant decrease in oral intake since starting methylphenidate. However, she does endorse that she could probably drink more water/fluids during the day. She is generally hesitant to take too many medications. 02/11/25, Previous HPI: Since the last visit, patient underwent in-lab sleep study followed by MSLT sleep study, results of which were consistent with narcolepsy. 07/16/2024 and 11/22/2024 UA toxicology screen was brady negative. 11/21/2024, baseline in-lab sleep PSG: This 460 minute sleep study was again negative for sleep apnea or sleep disordered breathing or significant periodic limb movements of sleep- with AHI 0 per hour and O2 antonino 93% and average SpO2 97%. REM sleep latency was 11 minutes. Periodic limb movements of sleep 19 per hour with PLMS arousal index 4 per hour. Sleep efficiency was 91%. 11/22/2024 in-lab MSLT: Average sleep latency across 5 naps, 10 minutes 45 seconds, with 3 positive sleep onset REM (SOREMS)- with average REM latency 7 minutes. Since review of the sleep study, we reviewed these results with the patient. She reported a history of trying sertraline and bupropion for her mood, but sertraline at 50 mg caused dry throat, and bupropion was not effective. We reviewed different types of narcolepsy treatments, and patient opted to retry low-dose sertraline. Patient states that since starting sertraline 25 mg in the morning she is more awake during the day, however she is prone to fall asleep after 14:00. Upon review of the sleep study, we had ask patient to review with her family if anyone else has hypersomnia symptoms, and patient states just again that both of her children do not sleep well. She was advised to encourage them to speak to their healthcare providers about evaluating there sleep, as there may be genetic components to narcolepsy. 06/24/2024, previous HPI: Pt reports she started having significant sleep issues about a year ago. She states she is not sure hwy this started. She goes to bed between 10:30-11pm, and gets up around 5am. She feels like she is not sleeping when in bed. She can dream a lot, at times can dream quickly upon sleeping. She denies parasomnias, sleep paralysis, sudden weakness. She denies h/o EBV infection. She states her children do not sleep well either. Since the last visit, pt underwent In-lab PSG which revealed: AHI 0.1/hr and REM AHI 0/hr. Sleep latency was 0 min w/ REM sleep latency was 46.5 min. O2 antonino 94% w/ SpO2 < 88% x's 0 min, and average SpO2 96%; Periodic limb movement of sleep (PLMS) index: 11/hr; PLMS arousal index: 1.5/hr. [facility] Medical History Asthma GERD (gastroesophageal reflux disease) Anemia Surgical History Hx of colonoscopy History of esophagogastroduodenoscopy (EGD) History of pubovaginal sling Family History Father No problems noted. Mother HTN (hypertension) Dementia Maternal Grandfather Diabetes Son Diabetes Social History Household Members: Children Alcohol intake: never Patient Tobacco Use Status: Never used Tobacco Physical Exam Vital Signs: Last Vital Signs Pulse 72 04/14/25 09:51 BP 120/84 04/14/25 09:51 Pulse Ox 95 04/14/25 09:51 Oxygen Delivery Method Room Air 04/14/25 09:51 BMI result Body Mass Index 32.0 Const General: no acute distress Orientation/consciousness: patient oriented x3 Resp Effort & Inspection: normal respiratory effort and able to speak in complete sentences Neuro General: patient oriented x3 Psych Mental Status: mental status grossly normal Speech and movement: Clear speech present Attitude: cooperative Assessment & Plan Assessment & Plan (1) Narcolepsy: Code(s): G47.419 - Narcolepsy without cataplexy Category: Medical Qualifiers: Narcolepsy type: primary without cataplexy Qualified Code(s): G47.419 - Narcolepsy without cataplexy (2) Hypersomnia: Code(s): G47.10 - Hypersomnia, unspecified Category: Medical (3) Headache: Code(s): R51.9 - Headache, unspecified Category: Medical Qualifiers: Headache type: unspecified Headache chronicity pattern: episodic headache Intractability: not intractable Qualified Code(s): R51.9 - Headache, unspecified Plan 11/22/2023, In-lab PSG/MS to results, which are consistent with the narcolepsy diagnosis. Patient does not have any other clear comorbid conditions that would otherwise explain her hypersomnia and rapid sleep onset REM activity. Narcolepsy patient education information previously shared with patient. Continue sertraline 25 mg daily in a.m.- patient is hesitant to increase dose as before on the higher dose of 50 mg she had dry throat. We will monitor for exacerbation of periodic limb movement of sleep with continuing sertraline. Continue methylphenidate 5-10 mg daily at 13:00, to allow this to take effect by 14:00 (the time when the activating effects of sertraline or wearing off). Monitor headaches and sleep. Encouraged patient to optimize sleep hygiene ritual. Shared information on nonpharmacological treatment interventions for headaches. Advised to avoid driving sleepy- may use methylphenidate prior to longer drives. Patient previously encouraged to discuss having her children sleep difficulties evaluated- has narcolepsy may be genetic. Future considerations: Gabapentin for Periodic limb movement of sleep (PLMS) or sodium oxybate to help with sleep fragmentation. Pt to follow-up in 4 months or sooner prn. Medications: Refilled methylphenidate HCl Daily at 1pm. Partial Fill upon patient request. PA APPROVED 01/16/2025-08/31/2039 5 - 10 mg (1 - 2 x 5 mg) PO DAILY 60 tabs 0RF 30 days G47.10 - Hypersomnia, unspecified, G47.419 - Narcolepsy without cataplexy Coding Level of Care Code Est Pt Level 4 (78694) Diagnoses Primary narcolepsy without cataplexy G47.419 Narcolepsy type: primary without cataplexy Hypersomnia G47.10 Nonintractable episodic headache, unspecified headache type R51.9 Headache type: unspecified Headache chronicity pattern: episodic headache Intractability: not intractable
[2025-04-14 09:51] VITALS: BP 120/84; PULSE 72; O2SAT 95; BMI 32.0
--- OUTSIDE RECORDS SUMMARY | 2025-04-14 10:06 | XMS_ITS | Clinical Summary ---
Author Organization [employer] Address [address] [place] [address] [address] [place] [address] Care Team Providers Care Burr Machine Operator Name Role Phone Bret Novak Primary Care Provider [phone] Allergies Active Allergy Reactions Criticality Noted Date Comments Aspirin Rash Low 11/27/2017 Other reaction(s): Hives / Skin Rash Medications fluticasone (Flonase) 50 MCG/ACT nasal spray Administer 2 sprays into affected nostril(s) 1 (one) time each day. inhale 2 spray by intranasal route every day in each nostril 022 Active methylcellulose oral powderIndicatio ns:Prescribed elsewhere Take by mouth Once per day. [place] je tableta todos los montanez con agau [...] breath. 75 mL 2 025 2025 Active albuterol (Ventolin HFA) 108 (90 Base) MCG/ACT inhalerIndicati ons:Shortness of breath Inhale 2 puffs every 6 (six) hours if needed for wheezing or shortness of breath. 20.1 g 1 025 Active estradiol (Estrace) 0.1 MG/GM vaginal creamIndication s:Postmenopause atrophic vaginitis 2g as needed intravaginally once daily for 1 week and then twice weekly 42.5 g 1 025 Active losartan (Cozaar) 25 MG tabletIndicatio ns:Essential hypertension TAKE 1 TABLET BY MOUTH EVERY DAY 90 tablet 1 025 Active losartan (Cozaar) 25 MG tabletIndicatio ns:Essential hypertension Take 1 tablet (25 mg) by mouth Once per day. 90 tablet 025 2024 Discontinued Active Problems Problem Noted Date [...] Encounters Date Type Department Care Team Description 04/11/2025 Refill [facility] [address] [place] [phone] Bret Novak ANP Essential hypertension 03/25/2025 Orders Only [facility] [address] [place] [phone] Bret Novak ANP 03/16/2025 Telephone [facility] [place] [address] Bret Novak ANP June recall 02/03/2025 9:15 AM EDT Office Visit [address] [address] Bret Novak ANP Shortness of breath (Primary Dx); Pre-diabetes; Primary narcolepsy without cataplexy; Postmenopause atrophic vaginitis; Change in nail appearance; Essential hypertension 02/03/2025 Travel 02/02/[address] [address] Bret Novak ANP chart prep 01/27/2025 Results Follow-Up [address] [address] Bret Novak ANP Basic Metabolic Panel 01/27/2025 Travel 01/13/[address] [address] Bret Novak ANP Medication Question from Last [...] Description 06/06/2025 3:00 PM EDT Office Visit [facility] [address] [place] [address] Bret Novak ANP [address] [place] [address] Health Maintenance Due Date Last Done Comments [...] exists Zoster Vaccines (1 of 2) 2025 Influenza Vaccine (#1) 2025 , 09/13/2022, 06/12/2021, Additional history exists Depression Monitoring 05/12/2025 11/09/2024, 025 Diabetes: Hemoglobin A1C 07/16/2025 024, 03/14/2023, 12/05/2022 SDOH Screening 10/29/2025 10/29/2024 Alcohol/Substance Use Screening 11/09/2025 11/09/2024 Disability Screening 02/03/2026 02/03/2025 Tobacco Screening 02/03/2026 02/03/2025 Cervical Cancer Screening 02/07/2026 HPV/Cotest 02/07/2026 02/07/2021 Pap Smear 02/07/2026 02/07/2021 Mammogram 03/25/2026 03/25/2025, 03/01, 03/19/2024, Additional history exists Dental X-Ray: Full Mouth 12/11/2026 12/11/2023, 10/03 [...] Procedure Name Priority Date/Time Associated Diagnosis Comments BI MAMMOGRAM SCREENING TOMOSYNTHESIS BILATERAL Routine 03/25/2025 7:32 AM EDT BASIC METABOLIC PANEL Routine 01/27/2025 10:28 AM EDT Essential hypertension HEMOGLOBIN A1C Routine 07/16/2024 9:07 AM EST Pre-diabetes LIPID PANEL, STANDARD Routine 07/16/2024 9:07 AM EST Pre-diabetes PROPHYLAXIS - ADULT Routine 12/11/2023 9 :00 [...] Recently Relevant to Health Maintenance Results * BI Mammogram Screening Tomosynthesis Bilateral (03/25/2025 7:32 AM EDT) Anatomical Region Laterality Modality Breast Bilateral Mammography 03/25/2025 7:32 AM EDT Narrative 04/04/2025 12:05 PM EDT [facility] [address] [place] [address] Mammography Report Signed Patient: Silvana Brown MR#: [id number] : 1975 Acct:[id number] Age/Sex: 50 / F ADM Date: 03/25/25 Loc: MAMMO Attending Dr: Bret Novak NP Ordering Physician: BRET NOVAK NP Results: 1Negative Date of Service: 03/25/25 Follow Up: 1 Year From Orig inal Mammogram Procedure(s): MM tomosynthesis screening BI Accession Number(s): [id number] cc: BRET NOVAK NP EXAMINATION: MM SCREENING DIGITAL BREAST TOMOSYNTHESIS, BILATERAL CLINICAL INFORMATION: Screening. Asymptomatic. COMPARISON: Mammography: Comparison is made with available priors TECHNIQUE: Digital breast mammography with tomosynthesis is performed in both the craniocaudal and mediolateral oblique views along with computer-aided detection (CAD). FINDINGS: There are scattered areas of fibroglandular [...] target due date for their next mammogram. Electronically signed by: Jannet Wilkinson DO 04/04/2025 12:02 PM EDT RP Dictated By: Jannet Wilkinson DO Signed By: <Electronically signed by Jannet Wilkinson DO in OV> 04/04/25 1202 DD/ 0732 TD/TT: 03/25/[address] Judge: Procedure Note Donotuseinterpreter, Image - [facility] [address] [place] [address] Mammography Report Signed Patient: Silvana Brown JMR#: [id number] : 1975Acct:[id number] Age/Sex: 50 / FADM Date: 03/25/25 Loc: [facility]ann[facility]AMMO Attending Dr: Bret Novak NP Ordering Physician: BRET NOVAK NPResults: 1Negative Date of Service: 03/25/25Follow Up: 1 Year From Orig inal Mammogram Procedure(s): MM tomosynthesis screening BI Accession Number(s): [id number] cc: BRET NOVAK NP EXAMINATION: MM SCREENING DIGITAL BREAST TOMOSYNTHESIS, BILATERAL CLINICAL INFORMATION: Screening. Asymptomatic. COMPARISON: Mammography: Comparison is made with available priors TECHNIQUE: Digital breast mammography with tomosynthesis is performed in both the craniocaudal and mediolateral oblique views along with computer-aided detection (CAD). FINDINGS: There are scattered areas of fibroglandular [...] target due date for their next mammogram. Electronically signed by: Jannet Wilkinson DO 04/04/2025 12:02 PM EDT Dictated By: Jannet Wilkinson DO Signed By: <Electronically signed by Jannet Wilkinson DO in OV> 04/04/25 1202 DD/ 0732 TD/TT: 03/25/[address] Judge: us Bret ACOSTA IMG BI PROCEDURES Final Result * (ABNORMAL) Basic Metabolic Panel (01/27/2025 10:28 AM EDT) Sodium 140 135 - 145 mmol/L [facility] Potassium 3.9 3.3 - 5.1 mmol/L [facility] Chloride 106 96 - 108 mmol/L [facility] Carbon Dioxide 26 22 - 29 mmol/L [facility] Anion Gap 12 12 - 20 [facility] Urea Nitrogen (BUN) 17(H) 9 - 16 mg/dL [facility] Creatinine, Serum 0.84 0.5 - 1.4 mg/dL [facility] Estimated Glomerular Filt Rate >60 [facility] Comment:Chronic Kidney Disea se: Estimated GFR < 60 mL/min/1.01t9Xlkelv Kidney Disease: Estimated GFR < 15 mL/min/1.73m2 Glucose 77 60 - 115 mg/dL [facility] Calcium 9.6 8.4 - 10.2 mg/dL [facility] Blood Venous blood specimen / Unknown 01/27/2025 10:28 AM EDT 01/27/2025 11:43 AM EDT us Bret ACOSTA LAB BLOOD ORDERABLES Final Resul t [facility] [address] [place] [address] [phone] * Hemoglobin A1c (07/16/2024 9:07 AM EST) Hemoglobin A1c 5.8 <6.0 % [facility] Comment:Hemoglobin A1C Refer ence Range Adults: 4.8 - 6.0 % Non diabetic: < 6.0 % Goal: < 7.0 %Additional Action Suggested: > 8.0 %Note: Hemoglobin A1c results are invalid for patients with abnormal amounts of HbF. Blood transfusions may impact the HbA1c concentration in the patient sample. Estimated Average Glucose 120 mg/dL [facility] Comment:eAG = Estimated ave rage glucose which is %A1C expressed asaverage glucose, using the formula of the [id number]-[id number] Glucose study (ADAG), Diabetes Care, Vol.31,#8,Apr. 2007 Blood Venous blood specimen / Unknown 07/16/2024 9:07 AM EST 07/16/2024 11:[address] [facility] LAB BLOOD ORDERABLES Final Resul t [facility] [address] [place] [address] [phone] * (ABNORMAL) Lipid Panel, Standard (07/16/2024 9:07 AM EST) Triglycerides 72 <150 mg/dL [facility] Comment:Desirable Triglyceri de: less than 150 mg/dLBorderline High Triglyceride 150-199 mg/dLHigh Triglyceride: 200-499 mg/dLVery High Triglyceride: greater than or equal to 5OO mg/dL Cholesterol 193 <200 mg/dL [facility] Comment:Desirable Cholestero l: less than 200 mg/dLBorderline High Cholesterol: 200-239 mg/dLHigh Cholesterol: greater than 239 mg/dL LDL Cholesterol Calculated 136(H) <100 mg/dL [facility] Comment:Desirable LDL: less than 100 mg/dLNear Optimal/Above Optimal LDL: 110- 129 mg/dLBorderline High LDL: 130-159 mg/dLHigh LDL: 160-189 mg/dLVery High LDL: greater than or equal to 190 mg/dL HDL Cholesterol 43 >40 mg/dL [facility] Comment:Desirable HDL: great er than 40 mg/dL Note: This HDL assay may give artificially low results in patients with liver disease. Blood Venous blood specimen / Unknown 07/16/2024 9:07 AM EST 07/16/2024 11:00 AM EST Bret Novak [facility] LAB BLOOD ORDERABLES Final Resul t Performing Organization Address City/State/[facility] Co de Phone Number [facility] [address] [place] [address] [phone] * Hm Colonoscopy (07/03/2022) Colonoscopy Normal Normal Historical Provider MD HEALTH MAINTENANCE Final Result * HIV 1/2 ANTIGEN/ANTIBODY,FOURTH GENERATION W/RFL (07/03/2021 2:29 PM EDT) HIV-1/2 ANTIGEN AND ANTIBODIES, 4TH GENERATION W/ REFLEX NON-REACT [facility] NON-REACT [facility] Comment: HIV-1 antigen and HIV-1/HIV-2 [...] purpose. For additional information please refer to http://education.Ku.[employer]/faq/ABG278 (This link is being provided for informational/ educational purposes only.) The performance of this assay has not been clinically validated in patients less than 2 years old. 07/03/2021 2:29 PM EDT Leonard ChiP LAB BLOOD ORDERABLES Final Result Performing Organization Address City/State/[facility] Co de Phone Number [facility] [address] [place] [address], * THINPREP PAP (02/07/2021 9:15 AM EDT) Clinical Information: NIL 11/2017 [facility] COMMENT SEE COMMENT [facility] [...] along with historic and current clinical information. Batch Operator : SEE COMMENT [facility] Comment: MXD, CT (ASCP) CT screening location: [place] [address] Interpretation/R esult: Negative for intraepithelial lesion or malignancy. [facility] LMP: 02/04/2021 [facility] Prev. BX: NONE GIVEN [facility] Prev. PAP: NONE GIVEN [facility] SOURCE: None given [facility] Statement Of Adequacy: SEE COMMENT [facility] Comment: Satisfactory for evaluation. Endocervical/transformation zone component present. 02/07/2021 9:15 AM EDT Kristie BUSTILLOS LAB PATHOLOGY ORDERABLES Final Result Performing Organization Address [facility] de Phone Number [facility] [address] [place] [address], * HPV mRNA E6/E7 (02/07/2021 9:15 AM EDT) HPV nRNA E6/E7 Not Detected Not Detected [facility] Comment: Methodology: Order Entry Specialist-Mediated Amplification This assay detects E6/E7 viral messenger RNA (mRNA) from 14 high-risk HPV types (16,18,31,33,35,39,45,51,52,56,58,59,66,68). The analytical performance characteristics of this assay have been determined by [employer]. The modifications have not been cleared or approved by the FDA. This assay has been validated pursuant to the CLIA regulations and is used for clinical purposes. For additional information, please refer to http://[employer]/faq/UAF582u8 (This link if provided for information/ educational purposes only.) 02/07/2021 9:15 AM EDT us Kristie Scanlongonzalez CNM LAB BLOOD ORDERABLES Sharita l Result Performing Organization Address [facility] de Phone Number [facility] [address] * HEPATITIS PANEL, ACUTE W/REFLEX TO CONFIRMATION (01/03/2021 10:01 AM EDT) HEPATITIS A IGM NON-REACT MIGDALIA NON-REACT [facility] Comment: For additional information, please refer to http://[employer]faq/SNT140 (This link is being provided for informational/ educational purposes only.) HEPATITIS B CORE ANTIBODY (IGM) NON-REACT M[facility]ALIA NON-REACT [facility] HEPATITIS B SURFACE ANTIGEN NON-REACT [facility] NON-REACT [facility] HEPATITIS C ANTIBODY NON-REACT [facility] NON-REACT [facility] INDEX 0.03 <1.00 [facility] Comment: HCV antibody was non-reactive. There is no laboratory evidence of HCV infection. In most cases, no further action is required. However, if recent HCV exposure is suspected, a test for HCV RNA (test code 45260) is suggested. For additional information please refer to http://[employer]/faq/ASL14g0 (This link is being provided for informational/ educational purposes only.) 01/03/2021 10:0 1 AM EDT us Leonard Iverson BLACK TOP SPREADER MACHINE OPERATOR HISTORICAL/NON ORDERA BLE LABS Final Result Performing Organization Address [facility] de Phone Number [facility] [address] from Last 3 Months or Most Recently Relevant to Health Maintenance Insurance HSN F[facility] MEDICAID STAND ADULT Care Teams Burr Machine Operator Relationship Specialty Start Date End Date Bret Novak ANP [address] [place] [phone] PCP - General Family Medicine 12/04/22
== END 2025-04-14 10:30 | disposition home or self-care (01) ==
LOC: HO.HSMS 09:31
PROVIDERS: PCP Nurse Practitioner Primary Care; Visit Provider Nurse Practitioner Family
DX: G47.419 Narcolepsy without cataplexy (principal); G47.10 Hypersomnia, unspecified; R51.9 Headache, unspecified
CPT/HCPCS: 99214

== ENCOUNTER → 2025-04-14 09:25 | Outpatient (BNVA) | payer OTHER, SELFPAY | PROVIDERS: PCP Nurse Practitioner Primary Care; Visit Provider Nurse Practitioner Family | DX: G47.419 Narcolepsy without cataplexy (principal); G47.10 Hypersomnia, unspecified; R51.9 Headache, unspecified | CPT/HCPCS: 99212 ==

== ENCOUNTER 2025-06-21 10:31 | Outpatient (REF) | payer OTHER, SELFPAY ==
--- NOTE | ~2025-06-21 | XR_ITS ---
EXAMINATION: XR ANKLE, RIGHT CLINICAL INFORMATION: r ankle pain COMPARISON: 05/30/2022. TECHNIQUE: AP, lateral, and mortise views of the right ankle. FINDINGS: No fracture, dislocation, or suspicious bone lesion. There is normal alignment. Ankle mortise is intact. The talar dome is normal. The subtalar joints appear normal. The calcaneus is intact. There is a large Achilles spur present on the dorsal calcaneus. There is no ankle joint effusion. Soft tissues appear normal. XR/XR ankle RT min 3V IMPRESSION: No acute findings of the right ankle. Large Achilles spur present. Electronically signed by: Deonte Yanes MD 06/21/2025 12:18 PM EDT
--- OUTSIDE RECORDS SUMMARY | 2025-06-21 12:35 | XMS_ITS | Encounter Summary ---
Author Organization [employer] [facility] Address [address] [place] [address] 7 [place] [address] Care Team Providers Care Congressional District Aide Name Role Phone Damaris Cain NP Primary Care Provider Laura Melchor ANP Primary Care Provider [phone] Encounter Details Date Type Department Care Team (Latest Contact Info) Description 05/30/2022 Abstract [facility] CONVERSIONS Dental, Provider, DDS Social History Tobacco Use Types Packs/Day Years Used Date Smoking Tobacco: Never Assessed Comments Unknown Sex and Gender Information Value Date Recorded Sex Assigned at Female 07/01/2022 10:33 AM EDT Legal Sex Female 10:33 AM EDT Gender Identity Female 07/01/2022 10:33 AM EDT Sexual Orientation Straight 07/01/2022 10 :33 AM EDT documented as of this encounter Plan of Treatment Not on file documented as of this encounter Visit Diagnoses Not on filedocumented in this encounter Care Teams [place] Aide Relationship Specialty Start Date End Date Damaris Cain NP PCP - General Family Medicine 04/23/21 12/03/22 Laura Moncada ANP [address] [place] [phone] PCP - General Family Medicine 12/04/22 documented as of this encounter
--- OUTSIDE RECORDS SUMMARY | 2025-06-21 12:35 | XMS_ITS | Clinical Summary ---
Author Organization [employer] Address [address] [place] [address] 7t [place] [address] Care Team Providers Care Currency Exchange Specialist Name Role Phone Bret Novak Primary Care Provider [phone] Allergies Active Allergy Reactions Criticality Noted Date Comments Aspirin Rash Low 11/27/2017 Other reaction(s): Hives / Skin Rash Medications fluticasone (Flonase) 50 MCG/ACT nasal spray Administer 2 sprays into affected nostril(s) 1 (one) time each day. inhale 2 spray by intranasal route every day in each nostril 02/29/20 22 Active methylcellulose oral powderIndication s:Prescribed elsewhere Take by mouth Once per day. Maroa je tableta todos los montanez con agau [...] 75 mL 2 11/10/19 25 026 Active albuterol (Ventolin HFA) 108 (90 Base) MCG/ACT inhalerIndicatio ns:Shortness of breath Inhale 2 puffs every 6 (six) hours if needed for wheezing or shortness of breath. 20.1 g 1 02/04/20 25 Active estradiol (Estrace) 0.1 MG/GM vaginal creamIndications :Postmenopause atrophic vaginitis 2g as needed intravaginally once daily for 1 week and then twice weekly 42.5 g 1 02/04/20 25 Active losartan (Cozaar) 25 MG tabletIndication s:Essential hypertension TAKE 1 TABLET BY MOUTH EVERY DAY 90 tablet 1 04/11/20 25 Active Diclofenac Sodium (Voltaren) 1 % gelIndications:A cute right ankle pain Apply 2g up to 4x/d to affected joint(s) for pain/swelling 100 g 2 06/06/20 25 Active Active Problems Problem Noted Date [...] Encounters Date Type Department Care Team Description 06/06/2025 3:00 PM EDT Office Visit [facility] MEDICINE [address] [place] [address] [phone] Bret Novak ANP Pre-diabetes (Primary Dx); Essential hypertension; Primary narcolepsy without cataplexy; Need for hepatitis B screening test; Depression, unspecified depression type; Dietary counseling; Exercise counseling; Acute right ankle pain; Shortness of breath 06/06/2025 Travel 06/03/2025 Telephone [facility] MEDICINE [address] [place] [address] Bret Novak ANP chartprep 05/30/2025 Patient Outreach [facility] MED & PEDS [address] [place] [address] Bret Novak ANP Pre-visit Planning (SDOH unable to complete ) 05/30/2025 Refill [facility] [address] [place] [address] Bret Novak ANP Shortness of breath 04/11/2025 Refill [facility]INE [address] [place] [address] Bret Novak ANP Essential hypertension 03/25/2025 Orders Only [facility]INE [address] [place] [phone] Bret Novak ANP from Last 3 Months Immunizations Immunization Administration Dates Next Due Influenza injectable quadriv alent IIV4 with preservative 06/07/2019 Influenza injectable quadriv alent preservative free 09/13/2022,06/12/2021,06/29/2020 Influenza, seasonal, injecta ble, preservative free 07/08/2024 Pfizer Covid-19 Vaccine 12+ fouzia-sucrose (Lalen Cap) 01/14/2022 Pneumococcal Conjugate PCV 20 07/08/2024 [...] Sign Reading Time Taken Comments Blood Pressure 102/68 06/06/2025 3:08 PM EDT Pulse 71 06/06/2025 3:08 PM EDT Temperature 36.6 C (97.9 F) 06/06/2025 3:08 PM EDT Respiratory Rate 12 06/06/2025 3:08 PM EDT Oxygen Saturation 98% 06/06/2025 3:08 PM EDT Inhaled Oxygen Concentration - - Weight 79.5 kg (175 lb 4 oz) 06/06/2025 3:08 PM EDT Height 157.5 cm (5' 2 ) 06/06/2025 3:08 PM EDT Body Mass Index 32.05 06/06/2025 3:08 PM EDT Plan of Treatment Health Maintenance Due Date Last Done Comments CT Colonography 1975 FIT DNA/Cologuard 1975 FIT 1975 FOBT 1975 Sigmoidoscopy 1975 Family Planning (PISQ) 1990 Hepatitis B Vaccines (1 of 3 - 19+ 3-dose series) 1994 Dental Oral Exam 06/12/2024 12/11/2023, , 04/25/2021, Additional history exists Dental Prophylaxis 06/12/2024 12/11/2023, 0 02/26/2023, 05/30/2022, Additional history exists Dental X-Ray: Bitewings 12/11/2024 12/11/19 24, 02/26/2023, 04/25/2021, Additional history exists Zoster Vaccines (1 of 2) 2025 COVID-19 Vaccine ( season) 2025 01/14/2022, 05/16/2021, 04/25/2021 Influenza Vaccine (#1) 2025 , 09/13/2022, 06/12/2021, Additional history exists Depression Monitoring 05/12/2025 11/09/2024, 025 Diabetes: Hemoglobin A1C 07/16/2025 024, 03/14/2023, 12/05/2022 SDOH Screening 10/29/2025 10/29/2024 Alcohol/Substance Use Screening 11/09/2025 11/09/2024 Disability Screening 02/03/2026 02/03/2025 Cervical Cancer Screening 02/07/2026 HPV/Cotest 02/07/2026 02/07/2021 Pap Smear 02/07/2026 02/07/2021 Mammogram 03/25/2026 03/25/2025, 0705/2024, 03/19/2024, Additional history exists Tobacco Screening 06/06/2026 06/06/2025 Dental X-Ray: Full Mouth 12/11/2026 12/11/2023, 10/03 [...] Name Priority Date/Time Associated Diagnosis Comments XR ANKLE 3+ VIEWS RIGHT Routine 06/21/2025 12:00 PM EDT Acute right ankle pain POCT GLUCOSE Routine 06/06/2025 3:10 PM EDT Pre-diabetes BI MAMMOGRAM SCREENING TOMOSYNTHESIS BILATERAL Routine 03/25/2025 7:32 AM EDT HEMOGLOBIN A1C Routine 07/16/2024 9:07 AM EST [...] Relevant to Health Maintenance Results * XR Ankle 3+ Views Right (06/21/2025 12:00 PM EDT) Anatomical Region Laterality Modality Lower Extremities, Ankle Right Radiogr aphic Imaging 06/21/2025 12:0 0 PM EDT Narrative 06/21/2025 12:21 [place] [address] XRay Report Signed Patient: Silvana Brown MR#: [id number] : 1975 Acct:[id number] Age/Sex: 50 / F ADM Date: 06/21/25 Loc: HO.HHCX Attending Dr: Bret Novak NP Ordering Physician: BRET NOVAK NP Date of Service: 06/21/25 Procedure(s): XR ankle RT min 3V Accession Number(s): [id number] cc: BRET NOVAK NP Reason for Exam: r ankle pain EXAMINATION: XR ANKLE, RIGHT CLINICAL INFORMATION: r ankle pain COMPARISON: 05/30/2022. TECHNIQUE: AP, lateral, and mortise views of the right ankle. FINDINGS: No fracture, dislocation, or suspicious bone lesion. There is normal alignment. Ankle mortise is intact. The talar dome is normal. The subtalar joints appear normal. The calcaneus is intact. There is a large Achilles spur present on the dorsal calcaneus. There is no ankle joint effusion. Soft tissues appear normal. XR/XR ankle RT min 3V IMPRESSION: No acute findings of the right ankle. Large Achilles spur present. Electronically signed by: Deonte Yanes MD 06/21/2025 12:18 PM EDT RP Dictated By: Deonte Yanes MD Signed By: <Electronically signed by Deonte Yanes MD in OV> 06/21/25 1218 DD/ 1200 TD/TT: 06/21/25 1213 Odd Job Laborer: Procedure Note Donotuseinterpreter, Image - 06/21/[address] [address] XRay Report Signed Patient: Silvana Brown JMR#: [id number] : 1975Acct:[id number] Age/Sex: 50 / FADM Date: 06/21/25 Loc: HO.HHCX Attending Dr: Bret Novak NP Ordering Physician: BRET NOVAK NP Date of Service: 06/21/25 Procedure(s): XR ankle RT min 3V Accession Number(s): [id number] cc: BRET NOVAK NP Reason for Exam: r ankle pain EXAMINATION: XR ANKLE, RIGHT CLINICAL INFORMATION: r ankle pain COMPARISON: 05/30/2022. TECHNIQUE: AP, lateral, and mortise views of the right ankle. FINDINGS: No fracture, dislocation, or suspicious bone lesion. There is normal alignment. Ankle mortise is intact. The talar dome is normal. The subtalar joints appear normal. The calcaneus is intact. There is a large Achilles spur present on the dorsal calcaneus. There is no ankle joint effusion. Soft tissues appear normal. XR/XR ankle RT min 3V IMPRESSION: No acute findings of the right ankle. Large Achilles spur present. Electronically signed by: Deonte Yanes MD 06/21/2025 12:18 PM EDT RP Dictated By: Deonte Yanes MD Signed By: <Electronically signed by Deonte Yanes MD in OV> 06/21/25 1218 DD/ 1200 TD/TT: 06/21/25 1213 Odd Job Laborer: Bret Novak ANP IMG XR PROCEDURES Edited Result - Final * POCT Glucose (06/06/2025 3:10 PM EDT) Glucose Blood, POC 117 60 - 200 mg/dL QC Media Lot # [id number] Lot# Expiration Date ,205,117 Blood Capillary blood specimen / Unknown 06/06/2025 3:10 PM EDT us Bret ACOSTA POINT OF CARE TEST ENTER/EDIT OR DERABLES Final Result * BI Mammogram Screening Tomosynthesis Bilateral (03/25/2025 7:32 AM EDT) Anatomical Region Laterality Modality Breast Bilateral Mammography 03/25/2025 7:32 AM EDT Narrative 04/04/2025 12:05 PM EDT [facility] [place] [address] Mammography Report Signed Patient: Silvana Brown MR#: [id number] : 1975 Acct:[id number] Age/Sex: 50 / F ADM Date: 03/25/25 Loc: HO.MAMMO Attending Dr: Bret Novak NP Ordering Physician: BRET NOVAK NP Results: 1Negative Date of Service: 03/25/25 Follow Up: 1 Year From Orig ina Mammogram Procedure(s): MM tomosynthesis screening BI Accession Number(s): [id number] cc: BRET NOVAK NP EXAMINATION: MM SCREENING [...] 04/04/25 1202 DD/ 0732 TD/TT: 03/25/25 0750 Odd Job Laborer: Procedure Note Donotuseinterpreter, Image - [facility]/04/[facility] [address] [place] [address] Mammography Report Signed Patient: Silvana Brown JMR#: [id number] : 1975Acct:[id number] Age/Sex: 50 / FADM Date: 03/25/25 Loc: HO.MAMMO Attending Dr: Bret Novak NP Ordering Physician: BRET NOVAK NPResults: 1Negative Date of Service: 03/25/25Follow Up: 1 Year From Orig inal Mammogram Procedure(s): MM tomosynthesis screening BI Accession Number(s): [id number] cc: BRET NOVAK NP EXAMINATION: MM SCREENING [...] 04/04/25 1202 DD/ 0732 TD/TT: 03/25/25 0750 Odd Job Laborer: us Bret Novak ANP IMG BI PROCEDURES Final Result * Hemoglobin A1c (07/16/2024 9:07 AM EST) Hemoglobin A1c 5.8 <6.0 % [facility] Comment:Hemoglobin A1C Refer ence Range Adults: 4.8 - 6.0 % Non diabetic: < 6.0 % Goal: < 7.0 %Additional Action Suggested: > 8.0 %Note: Hemoglobin A1c results are invalid for patients with abnormal amounts of HbF. Blood transfusions may impact the HbA1c concentration in the patient sample. Estimated Average Glucose 120 mg/dL [facility] Comment:eAG = Estimated ave rage glucose which is %A1C expressed asaverage glucose, using the formula of the F1N-DgmwbxrOshreyo Glucose study (ADAG), Diabetes Care, Vol.31,#8,Apr. 2007 Blood Venous blood specimen / Unknown 07/16/2024 9:07 AM EST 07/16/2024 11:00 AM EST us Bret Novak ANP LAB BLOOD ORDERABLES Final Resul t [facility] [address] [place] [address] [phone] * (ABNORMAL) Lipid Panel, Standard (07/16/2024 9:07 AM EST) Triglycerides 72 <150 mg/dL [facility] Comment:Desirable Triglyceri de: less than 150 mg/dLBorderline High Triglyceride 150-199 mg/dLHigh Triglyceride: 200-499 mg/dLVery High Triglyceride: greater than or equal to 5OO mg/dL Cholesterol 193 <200 mg/dL [facility] Comment:Desirable Cholestero l: less than 200 mg/dLBorderline High Cholesterol: 200-239 mg/dLHigh Cholesterol: greater than 239 mg/dL LDL Cholesterol Calculated 136(H) <100 mg/dL [facility] Comment:Desirable LDL: less than 100 mg/dLNear Optimal/Above Optimal LDL: 110- 129 mg/dLBorderline High LDL: 130-159 mg/dLHigh LDL: 160-189 mg/dLVery High LDL: greater than or equal to 190 mg/dL HDL Cholesterol 43 >40 mg/dL [facility] Comment:Desirable HDL: great er than 40 mg/dL Note: This HDL assay may give artificially low results in patients with liver disease. Blood Venous blood specimen / Unknown 07/16/2024 9:07 AM EST 07/16/2024 11:00 AM EST [facility] LAB BLOOD ORDERABLES Final Resul t [facility] [address] [place] [phone] * Colonoscopy (07/03/2022) Colonoscopy Normal Normal Historical Provider MD HEALTH MAINTENANCE Final Result * HIV 1/2 ANTIGEN/ANTIBODY,FOURTH GENERATION W/RFL (07/03/2021 2:29 PM EDT) HIV-1/2 ANTIGEN AND ANTIBODIES, 4TH GENERATION W/ REFLEX NON-REACT MIGDALIA NON-REACT MIGDALIA [facility] Comment: HIV-1 antigen and HIV-1/HIV-2 [...] purpose. For additional information please refer to http://education.SkyGrid/faq/OSM041 (This link is being provided for informational/ educational purposes only.) The performance of this assay has not been clinically validated in patients less than 2 years old. 07/03/2021 2:29 PM EDT Leonard Richardsroxane Iverson PUG MACHINE OPERATOR LAB BLOOD ORDERABLES Final Result Performing Organization Address [facility] Co de Phone Number [facility] [address] [place] [address], * THINPREP PAP (02/07/2021 9:15 AM EDT) [...] along with historic and current clinical information. Snowboard Designer : SEE COMMENT [facility] Comment: MXD, CT (ASCP) CT screening location: [place] [address] Interpretation/R esult: Negative for intraepithelial lesion or malignancy. [facility] LMP: 02/04/2021 [facility] Prev. BX: NONE GIVEN [facility] Prev. PAP: NONE GIVEN [facility] SOURCE: None given [facility] Statement Of Adequacy: SEE COMMENT [facility] Comment: Satisfactory for evaluation. Endocervical/transformation zone component present. 02/07/2021 9:15 AM EDT us Kristie Hernandez [facility] LAB PATHOLOGY ORDERABLES Final Result Performing Organization Address [facility] Co de Phone Number [facility] [address] [place] [address], * HPV mRNA E6/E7 (02/07/2021 9:15 AM EDT) HPV nRNA E6/E7 Not Detected Not Detected [facility] Comment: Methodology: Front Office Director-Mediated Amplification This assay detects E6/E7 viral messenger RNA (mRNA) from 14 high-risk HPV types (16,18,31,33,35,39,45,51,52,56,58,59,66,68). The analytical performance characteristics of this assay have been determined by [employer]. The modifications have not been cleared or approved by the FDA. This assay has been validated pursuant to the CLIA regulations and is used for clinical purposes. For additional information, please refer to http://Edi.io.SkyGrid/faq/AXR377b2 (This link if provided for information/ educational purposes only.) 02/07/2021 9:15 AM EDT us Kristie Hernandez [facility] LAB BLOOD ORDERABLES Sharita l Result Performing Organization Address [facility] Co de Phone Number [facility] [address] * HEPATITIS PANEL, ACUTE W/REFLEX TO CONFIRMATION (01/03/2021 10:01 AM EDT) HEPATITIS A IGM NON-REACT MIGDALIA NON-REACT MIGDALIA [facility] Comment: For additional information, please refer to http://Edi.io.SkyGrid/faq/GHO752 (This link is being provided for informational/ [...] a test for HCV RNA (test code 42226) is suggested. For additional information please refer to http://Edi.io.SkyGrid/faq/DSW32t0 (This link is being provided for informational/ educational purposes only.) 01/03/2021 10:0 1 AM EDT us Leonard Iverson PUG MACHINE OPERATOR HISTORICAL/NON ORDERA BLE LABS Final Result Performing Organization Address [facility] Co de Phone Number [facility] [address] [place] [address], from Last 3 Months or Most Recently Relevant to Health Maintenance Insurance [facility] ST[place] ADULT Care Teams Currency Exchange Specialist Relationship Specialty Start Date End Date Bret Novak ANP [address] [place] [address] PCP - General Family Medicine 12/04/22
--- OUTSIDE RECORDS SUMMARY | 2025-06-21 12:35 | XMS_ITS | Encounter Summary ---
Author Organization [facility] [facility] Address [address] [place] [address] [address] [place] [address] Care Team Providers Care Cartoon Animator Name Role Phone Damaris Cain OIL LEASE BROKER Primary Care Provider Laura Melchor ANP Primary Care Provider [phone] Encounter Details Date Type Department Care Team (Latest Contact Info) Description 08/16/2019 Abstract [facility] CONVERSIONS Dental, Provider, DDS Social History Tobacco [...] on filedocumented in this encounter Care Teams Cartoon Animator Relationship Specialty Start Date End Date Damaris Cain NP PCP - General Family Medicine 04/23/21 12/03/22 Laura Moncada ANP [address] [place] [phone] PCP - General Family Medicine 12/04/22 documented as of this encounter
--- OUTSIDE RECORDS SUMMARY | 2025-06-21 12:35 | XMS_ITS | Encounter Summary ---
Author Organization [employer] [facility] Address [address] [place] [address] 7 [place] [address] Care Team Providers Care Drum Barker Operator Name Role Phone Damaris Cain FUR DESIGNER Primary Care Provider Laura Melchor ANP Primary Care Provider [phone] Encounter Details Date Type Department Care Team (Latest Contact Info) Description 10/15/2018 Abstract [facility] CONVERSIONS Dental, Provider, DDS Social [...] on filedocumented in this encounter Care Teams Drum Barker Operator Relationship Specialty Start Date End Date Damaris Cain NP PCP - General Family Medicine 04/23/21 12/03/22 Laura Moncada ANP [address] [place] [address] PCP - General Family Medicine 12/04/22 documented as of this encounter
--- OUTSIDE RECORDS SUMMARY | 2025-06-21 12:35 | XMS_ITS | Encounter Summary ---
Author Organization [employer] Address [address] [facility] [address]t [place] [address] Care Team Providers Care Sas Architect Name Role Phone Laura Moncada Primary Care Provider [phone] Reason for Visit * Reason Comments Med Refill Encounter Details Date Type Department Care Team ([facility] st Contact Info) Description 05/30/2025 Refill [facility] MED[facility]INE [address] [place] [address] Laura Moncada ANP [address] [place] [address] Shortness of breath Social History Tobacco Use Types Packs/Day Years [...] documented as of this encounter Visit Diagnoses Diagnosis Shortness of breath documented in this encounter Additional Health Concerns Assessment Noted Time PHQ-9 Depression Total Score: 11 025 3:03 PM EDT documented as of this encounter Care Teams Sas Architect Relationship Specialty Start Date End Date Laura Moncada ANP [address] [place] [phone] PCP - General Family Medicine 12/04/22 documented as of this encounter
--- OUTSIDE RECORDS SUMMARY | 2025-06-21 12:35 | XMS_ITS | Encounter Summary ---
Author Organization [employer] [facility] Address [address] [place] [address] [address] [place] [address] Care Team Providers Care Plate Shear Operator Name Role Phone Damaris Cain DONOR RELATIONS MANAGER Primary Care Provider Laura Melchor ANP Primary Care Provider [phone] Encounter Details Date Type Department Care Team (Late st Contact Info) Description 08/09/2022 Abstract [facility] MEDICINE [address] [place] [address] Provider, MD Farzana Social History Tobacco Use [...] on filedocumented in this encounter Care Teams Plate Shear Operator Relationship Specialty Start Date End Date Damaris Cain NP PCP - General Family Medicine 04/23/21 12/03/22 Laura Moncada ANP [address] [place] [address] PCP - General Family Medicine 12/04/22 documented as of this encounter
--- OUTSIDE RECORDS SUMMARY | 2025-06-21 12:35 | XMS_ITS | Encounter Summary ---
Author Organization [employer] [facility] Address [address] [place] [address] [address] [place] [address] Care Team Providers Care Central Melt Specialist Name Role Phone Damaris Cain NP Primary Care Provider Laura Melchor ANP Primary Care Provider [phone] Encounter Details Date Type Department Care Team (Latest Contact Info) Description 04/25/2021 Abstract [facility] CONVERSIONS Dental, Provider, DDS Social History Tobacco [...] on filedocumented in this encounter Care Teams Central Melt Specialist Relationship Specialty Start Date End Date Damaris Cain NP PCP - General Family Medicine 04/23/21 12/03/22 Laura Moncada ANP [address] [place] [id number] PCP - General Family Medicine 12/04/22 documented as of this encounter
== END 2025-06-21 10:32 | disposition home or self-care (01) ==
LOC: HO.HHCX 10:31
PROVIDERS: PCP Nurse Practitioner Primary Care; Visit Provider Nurse Practitioner Primary Care
DX: M25.571 Pain in right ankle and joints of right foot (principal)
CPT/HCPCS: 73610

== ENCOUNTER → 2025-06-21 10:39 | Outpatient (BNV) | payer OTHER, SELFPAY | PROVIDERS: PCP Nurse Practitioner Primary Care; Visit Provider Radiology Diagnostic Radiology | DX: M25.571 Pain in right ankle and joints of right foot (principal) | CPT/HCPCS: 73610 ==

== ENCOUNTER 2025-06-23 08:31 | Outpatient (REF) | payer OTHER, SELFPAY ==
--- OUTSIDE RECORDS SUMMARY | 2025-06-23 08:59 | XMS_ITS | Encounter Summary ---
Author Organization [employer] [facility] Address [address] [place] [address] [address] [place] [address] Care Team Providers Care Operating Room Technician Name Role Phone Damaris Cain TAX ECONOMIST Primary Care Provider Laura Melchor ANP Primary Care Provider [phone] Encounter Details Date Type Department Care Team (Latest Contact Info) Description 08/16/2019 Abstract [facility] CONVERSIONS Dental, Provider, DDS Social History Tobacco [...] on filedocumented in this encounter Care Teams Operating Room Technician Relationship Specialty Start Date End Date Damaris Cain NP PCP - General Family Medicine 04/23/21 12/03/22 Laura Moncada ANP [address] [place] [phone] PCP - General Family Medicine 12/04/22 documented as of this encounter
--- OUTSIDE RECORDS SUMMARY | 2025-06-23 08:59 | XMS_ITS | Clinical Summary ---
Author Organization [employer] Address [address] [place] [address] 7t [place] [address] Care Team Providers Care Semiconductor Engineer Name Role Phone Bret Novak Primary Care Provider [phone] Allergies Active Allergy Reactions Criticality Noted Date Comments Aspirin Rash Low 11/27/2017 Other reaction(s): Hives / Skin Rash Medications fluticasone (Flonase) 50 MCG/ACT nasal spray Administer 2 sprays into affected nostril(s) 1 (one) time each day. inhale 2 spray by intranasal route every day in each nostril 02/29/20 22 Active methylcellulose oral powderIndication s:Prescribed elsewhere Take by mouth Once per day. [place] je tableta todos los montanez con agau [...] Description 06/06/2025 3:00 PM EDT Office Visit [facility] MED[facility] [address] [place] [address] [phone] Bret Novak ANP Pre-diabetes (Primary Dx); Essential hypertension; Primary narcolepsy without cataplexy; Need for hepatitis B screening test; Depression, unspecified depression type; Dietary counseling; Exercise counseling; Acute right ankle pain; Shortness of breath 06/06/2025 Travel 06/03/2025 Telephone [facility] MED[facility]INE [address] [place] [address] Bret Novak ANP chartprep 05/30/2025 Patient Outreach [facility] P[facility] [address] [place] [address] Bret Novak ANP Pre-visit Planning (SDOH unable to complete ) 05/30/2025 Refill [facility] [address] [place] [address] Bret Novak ANP Shortness of breath 04/11/2025 Refill [facility] [address] [place] [address] Bret Novak ANP Essential hypertension 03/25/2025 Orders Only [facility] [address] [place] [phone] Bret Novak ANP from Last 3 Months [...] PM EDT Narrative 06/21/2025 12:21 [place] [address] XRay Report Signed Patient: Silvana Brown MR#: [id number] : 1975 Acct:[id number] Age/Sex: 50 / F ADM Date: 06/21/25 Loc: HO.HHCX Attending Dr: Bret Novak NP Ordering Physician: BRET NOVAK NP Date of Service: 06/21/25 Procedure(s): XR ankle RT min 3V Accession Number(s): [id number] cc: BRET NOVAK NP Reason for Exam: [...] 06/21/25 1218 DD/ 1200 TD/TT: 06/21/25 1213 Chain Tender: Procedure Note Donotuseinterpreter, Image - 06/21/[address] [address] XRay Report Signed Patient: Silvana Brown JMR#: [id number] : 1975Acct:[id number] Age/Sex: 50 / FADM Date: 06/21/25 Loc: HO.HHCX Attending Dr: Bret Novak NP Ordering Physician: BRET NOVAK NP Date of Service: 06/21/25 Procedure(s): XR ankle RT min 3V Accession Number(s): [id number] cc: BRET NOVAK NP Reason for Exam: [...] 06/21/25 1218 DD/ 1200 TD/TT: 06/21/25 1213 Chain Tender: Bret Novak ANP IMG XR PROCEDURES Edited Result - Final * POCT Glucose (06/06/2025 3:10 PM EDT) Glucose Blood, POC 117 60 - 200 mg/dL QC Media Lot # [id number] Lot# Expiration Date ,352,787 Blood Capillary blood specimen / Unknown 06/06/2025 3:10 PM EDT us Bret ACOSTA POINT OF CARE TEST ENTER/EDIT OR DERABLES Final Result * BI Mammogram Screening Tomosynthesis Bilateral (03/25/2025 7:32 AM EDT) Anatomical Region Laterality Modality Breast Bilateral Mammography 03/25/2025 7:32 AM EDT Narrative 04/04/2025 12:05 PM EDT [facility] [place] [address] Mammography Report Signed Patient: Silvana Brown MR#: [id number] : 1975 Acct:[id number] Age/Sex: 50 / F ADM Date: 03/25/25 Loc: HO.MAMMO Attending Dr: Bret Novak NP Ordering Physician: BRET NOVAK NP Results: 1Negative Date of Service: 03/25/25 Follow Up: 1 Year From Orig ina Mammogram Procedure(s): MM tomosynthesis screening BI Accession Number(s): [id number] cc: BRET NOVAK NP EXAMINATION: MM SCREENING [...] 04/04/25 1202 DD/ 0732 TD/TT: 03/25/25 0750 Chain Tender: Procedure Note Donotuseinterpreter, Image - 04/04/[facility] [address] [place] [address] Mammography Report Signed Patient: Silvana Brown JMR#: [id number] : 1975Acct:[id number] Age/Sex: 50 / FADM Date: 03/25/25 Loc: HO.MAMMO Attending Dr: Bret Novak NP Ordering Physician: BRET NOVAK NPResults: 1Negative Date of Service: 03/25/25Follow Up: 1 Year From Orig inal Mammogram Procedure(s): MM tomosynthesis screening BI Accession Number(s): [id number] cc: BRET NOVAK NP EXAMINATION: MM SCREENING [...] 04/04/25 1202 DD/ 0732 TD/TT: 03/25/25 0750 Chain Tender: us Bret Novak ANP IMG BI PROCEDURES Final Result * Hemoglobin A1c (07/16/2024 9:07 AM EST) Hemoglobin A1c 5.8 <6.0 % [facility] Comment:Hemoglobin A1C Refer ence Range Adults: 4.8 - 6.0 % Non diabetic: < 6.0 % Goal: < 7.0 %Additional Action Suggested: > 8.0 %Note: Hemoglobin A1c results are invalid for patients with abnormal amounts of HbF. Blood transfusions may impact the HbA1c concentration in the patient sample. Estimated Average Glucose 120 mg/dL [facility] Comment:eAG = Estimated ave rage glucose which is %A1C expressed asaverage glucose, using the formula of the M0G-QwkjedlUogoyeo Glucose study (ADAG), Diabetes Care, Vol.31,#8,Apr. 2007 Blood Venous blood specimen / Unknown 07/16/2024 9:07 AM EST 07/16/2024 11:00 AM EST us Bret Novak ANP LAB BLOOD ORDERABLES Final Resul t [facility] [address] [place] [address] [phone] * (ABNORMAL) Lipid Panel, Standard (07/16/2024 9:07 AM EST) Triglycerides 72 <150 mg/dL [facility] Comment:Desirable Triglyceri de: less than 150 mg/dLBorderline High Triglyceride 150-199 mg/dLHigh Triglyceride: 200-499 mg/dLVery High Triglyceride: greater than or equal to 5OO mg/dL Cholesterol 193 <200 mg/dL [facility] Comment:Desirable Cholestero l: less than 200 mg/dLBorderline High Cholesterol: 200-239 mg/dLHigh Cholesterol: greater than 239 mg/dL LDL Cholesterol Calculated 136(H) <100 mg/dL [facility] Comment:Desirable LDL: less than 100 mg/dLNear Optimal/Above Optimal LDL: 110- 129 mg/dLBorderline High LDL: 130-159 mg/dLHigh LDL: 160-189 mg/dLVery High LDL: greater than or equal to 190 mg/dL HDL Cholesterol 43 >40 mg/dL [facility] Comment:Desirable HDL: great er than 40 mg/dL Note: This HDL assay may give artificially low results in patients with liver disease. Blood Venous blood specimen / Unknown 07/16/2024 9:07 AM EST 07/16/2024 11:00 AM EST [facility] LAB BLOOD ORDERABLES Final Resul t [facility] [address] [place] [phone] * Colonoscopy (07/03/2022) Colonoscopy Normal Normal [...] purpose. For additional information please refer to http://education.Breather/faq/IWF181 (This link is being provided for informational/ educational purposes only.) The performance of this assay has not been clinically validated in patients less than 2 years old. 07/03/2021 2:29 PM EDT Leonard Richardsroxane Iverson CELL BUILDER LAB BLOOD ORDERABLES Final Result Performing Organization Address [facility] Co de Phone Number [facility] [address] [place] [address], * THINPREP PAP (02/07/2021 9:15 AM EDT) [...] along with historic and current clinical information. Sheet Metal Smith : SEE COMMENT [facility] Comment: MXD, CT (ASCP) CT screening location: [place] [address] Interpretation/R esult: Negative for intraepithelial lesion or malignancy. [facility] LMP: 02/04/2021 [facility] Prev. BX: NONE GIVEN [facility] Prev. PAP: NONE GIVEN [facility] SOURCE: None given [facility] Statement Of Adequacy: SEE COMMENT [facility] Comment: Satisfactory for evaluation. Endocervical/transformation zone component present. 02/07/2021 9:15 AM EDT us Kristie Hernandez [facility] PATHOLOGY ORDERABLES Final Result Performing Organization Address [facility] Co de Phone Number [facility] [address] [place] [address], * HPV mRNA E6/E7 (02/07/2021 9:15 AM EDT) HPV nRNA E6/E7 Not Detected Not Detected [facility] Comment: Methodology: Commercial Representative-Mediated Amplification This assay detects E6/E7 viral messenger RNA (mRNA) from 14 high-risk HPV types (16,18,31,33,35,39,45,51,52,56,58,59,66,68). The analytical performance characteristics of this assay have been determined by [employer]. The modifications have not been cleared or approved by the FDA. This assay has been validated pursuant to the CLIA regulations and is used for clinical purposes. For additional information, please refer to http://[employer].Breather/faq/VGI743h2 (This link if provided for information/ educational purposes only.) 02/07/2021 9:15 AM EDT us Kristie Hernandez [facility] LAB BLOOD ORDERABLES Sharita l Result Performing Organization Address [facility] Co de Phone Number [facility] [address] * HEPATITIS PANEL, ACUTE W/REFLEX TO CONFIRMATION (01/03/2021 10:01 AM EDT) HEPATITIS A IGM NON-REACT MIGDALIA NON-REACT MIGDALIA [facility] Comment: For additional information, please refer to http://[employer].Breather/faq/OJG926 (This link is being provided for informational/ [...] a test for HCV RNA (test code 86589) is suggested. For additional information please refer to http://[employer].Breather/faq/JEK07t3 (This link is being provided for informational/ educational purposes only.) 01/03/2021 10:0 1 AM EDT us Leonard Iverson CELL BUILDER HISTORICAL/NON ORDERA BLE LABS Final Result Performing Organization Address [facility] Co de Phone Number [facility] [address] [place] [address], from Last 3 Months or Most Recently Relevant to Health Maintenance Insurance [facility] STAND ADULT Care Teams Semiconductor Engineer Relationship Specialty Start Date End Date Bret Novak ANP [address] [place] [address] PCP - General Family Medicine 12/04/22
--- OUTSIDE RECORDS SUMMARY | 2025-06-23 08:59 | XMS_ITS | Encounter Summary ---
Author Organization [employer] [facility] Address [address] [place] [address] 7 [place] [address] Care Team Providers Care Partition Setter Name Role Phone Damaris Cain PRISON OFFICER Primary Care Provider Laura Melchor ANP Primary Care Provider [phone] Encounter Details Date Type Department Care Team (Late st Contact Info) Description 08/09/2022 Abstract [facility] [address] [place] [address] Provider, MD Farzana Social History Tobacco Use [...] on filedocumented in this encounter Care Teams Partition Setter Relationship Specialty Start Date End Date Damaris Cain NP PCP - General Family Medicine 04/23/21 12/03/22 Laura Moncada ANP [address] [place] [address] PCP - General Family Medicine 12/04/22 documented as of this encounter
--- OUTSIDE RECORDS SUMMARY | 2025-06-23 08:59 | XMS_ITS | Encounter Summary ---
Author Organization [employer] Address [address] [facility] [address] [place] [address] Care Team Providers Care Insurance Billing Specialist Name Role Phone Laura Moncada Primary Care Provider [phone] Reason for Visit * Reason Comments Med Refill Encounter Details Date Type Department Care Team ([facility] st Contact Info) Description 05/30/2025 Refill [facility] [address] [place] [address] Laura Moncada ANP [address] [place] [address] Shortness of breath Social History Tobacco Use [...] documented as of this encounter Care Teams Insurance Billing Specialist Relationship Specialty Start Date End Date Laura Moncada ANP [address] [place] [phone] PCP - General Family Medicine 12/04/22 documented as of this encounter
--- OUTSIDE RECORDS SUMMARY | 2025-06-23 08:59 | XMS_ITS | Encounter Summary ---
Author Organization [employer] [facility] Address [address] [place] [address] 7 [place] [address] Care Team Providers Care Varnishing Machine Operator Name Role Phone Damaris Cain FEATHER TRIMMER Primary Care Provider Laura Melchor ANP Primary Care Provider [phone] Encounter Details Date Type Department Care Team (Latest Contact Info) Description 10/15/2018 Abstract [facility] Dental, Provider, DDS Social History [...] on filedocumented in this encounter Care Teams Varnishing Machine Operator Relationship Specialty Start Date End Date Damaris Cain NP PCP - General Family Medicine 04/23/21 12/03/22 Laura Moncada ANP [address] [place] [address] PCP - General Family Medicine 12/04/22 documented as of this encounter
--- OUTSIDE RECORDS SUMMARY | 2025-06-23 08:59 | XMS_ITS | Encounter Summary ---
Author Organization [facility] Address [address] [place] [address] 7 [place] [address] Care Team Providers Care Vermin Exterminator Name Role Phone Damaris Cain NP Primary Care Provider Laura Melchor ANP Primary Care Provider [phone] Encounter Details Date Type Department Care Team [...] on filedocumented in this encounter Care Teams Vermin Exterminator Relationship Specialty Start Date End Date Damaris Cain NP PCP - General Family Medicine 04/23/21 12/03/22 Laura Moncada ANP [address] [place] [address] PCP - General Family Medicine 12/04/22 documented as of this encounter
--- OUTSIDE RECORDS SUMMARY | 2025-06-23 08:59 | XMS_ITS | Encounter Summary ---
Author Organization [employer] [facility] Address [address] [place] [address] 7 [place] [address] Care Team Providers Care Fence Manufacture Supervisor Name Role Phone Damaris Cain NP Primary Care Provider Laura Melchor ANP Primary Care Provider [phone] Encounter Details Date Type Department Care Team [...] on filedocumented in this encounter Care Teams Fence Manufacture Supervisor Relationship Specialty Start Date End Date Damaris Cain NP PCP - General Family Medicine 04/23/21 12/03/22 Laura Moncada ANP [address] [place] [address] PCP - General Family Medicine 12/04/22 documented as of this encounter
[2025-06-23 11:31] LABS: MANUAL DIFF FLAG NO
[2025-06-23 11:47] LABS: Hematocrit 35.6 % (37.0-47.0); Hemoglobin 10.9 g/dl (12.0-16.0); Imm Gran Abs Auto 0.02 X10*3/uL (0.00-0.03); Imm Gran Pct Auto 0.4 % (0.0-0.4); Lymphocytes Absolute Auto 1.3 X10*3/uL (1.2-4.9); Mean Corpuscular HGB Conc 30.6 g/dl (31.0-35.0); Mean Corpuscular Hemoglobin 24.0 pg (27.0-33.0); Mean Corpuscular Volume 78.2 fL (80.0-98.0); NRBC Abs Auto 0.000 X10*3/uL (0.0-0.012); NRBC Pct Auto 0.0 /100WBC (0.0-0.2); Platelet Count 375 X10*3/uL (160-400); Red Blood Count 4.55 X10*6/uL (4.20-5.50); White Blood Count 4.5 X10*3/uL (4.8-10.8)
[2025-06-23 11:52] LABS: Cholesterol 198 mg/dL (<200); HDL Cholesterol 42 mg/dL (>40); Triglycerides 98 mg/dL (<150)
[2025-06-23 12:08] LABS: HBS Num1 191.99 mIU/mL (0-7.99); HBc Num1 11.39 S/CO (0.00-0.79); HBsAGNum1 0.37 S/CO (0.00-0.99); Hepatitis B Surface Antigen Negative (Negative); ~Hepatitis B Surface Antibody REACTIVE (Nonreactive)
[2025-06-23 13:48] LABS: HBc Num2 11.63 S/CO; HBc Num3 11.47 S/CO
== END 2025-06-23 08:32 | disposition home or self-care (01) ==
LOC: HO.HHCL 08:31
PROVIDERS: PCP Nurse Practitioner Primary Care; Visit Provider Nurse Practitioner Primary Care
DX: Z11.59 Encounter for screening for other viral diseases (principal); R73.03 Prediabetes; R06.02 Shortness of breath
CPT/HCPCS: 36415; 80061; 83036; 84443; 85025; 86704; 86706; 87340

== ENCOUNTER 2025-08-11 07:56 | Outpatient (AMB) | payer OTHER, SELFPAY ==
[2025-08-11 08:03] VITALS: BMI 31.6
--- NOTE | 2025-08-11 08:03 | MHC.OFFVIS ---
Vital Signs 08/11/25 08:03 Height 5 ft 2 in Weight 173 lb BMI 31.6 Intake Visit Reasons: Right Ankle Pain Intake Note: Silvana is a 50 year old female who presents today as a new patient for an evaluation of her right ankle pain. Patient reports the pain has been going on for about 3 months and the pain occurred without injury. She has tried taking Naproxen and diclofenac cream that was prescribed by her PCP. Xrays where taken and is all set in patients chart Carburetor Repairer Required: Yes Carburetor Repairer Services: Carburetor Repairer Present Carburetor Repairer Name: [id number] Allergies aspirin Allergy (Unknown, Verified 08/11/25 08:04) Rash HPI Comments Details: The patient is a 50 year old female with a past medical history as seen below presenting with bilateral ankle pain for the past 3 months. She reports pain in both ankles but states the right ankle hurts more. She experiences pain along the medial aspect and in the back of the ankle, which is associated with constant swelling. The patient denies any specific fall or injury and feels like she is going to fall when she walks. She previously used a brace but stopped, and now sometimes uses insoles for her feet. The patient also notes tightness in the arch of her foot, consistent with plantar fasciitis. She denies any other pedal concerns. Patient states she takes naproxen and uses Voltaren gel with mild relief. Patient seen wearing slippers. [facility] History (Updated 08/11/25 @ 08:22 by Rosalva Cheng DPM) Calcaneal spur Bilateral ankle pain Bilateral foot pain History of sprain of both ankles Chronic instability of ankle Insertional tendinopathy of both Achilles tendons Plantar fasciitis, bilateral Asthma GERD (gastroesophageal reflux disease) Anemia Surgical History Hx of colonoscopy History of esophagogastroduodenoscopy (EGD) History of pubovaginal sling Family History Father No problems noted. Mother HTN (hypertension) Dementia Maternal Grandfather Diabetes Son Diabetes Social History Household Members: Children Alcohol intake: never Patient Tobacco Use Status: Never used Tobacco Review of Systems Const Details: - Musculoskeletal: Reports bilateral ankle pain, worse on the right, with associated constant swelling. Reports pain in the posterior ankle and in the arch of the foot. Reports a feeling of instability or that she is going to fall when walking. All systems reviewed & are unremarkable except as noted in HPI and below Physical Exam Vital Signs: BMI result Body Mass Index 31.6 Extrem Other: Bilateral lower extremity focused physical exam: Derm: No open lesions abrasions or wounds noted. Skin supple and turgor within normal limits. No maceration no hyperkeratotic areas noted. No ecchymosis, erythema, or discoloration noted. No clinical signs of infection noted. Vascular: DP/PT pulses palpable. Capillary refill time less than 3 seconds. Temperature gradient warm to warm. Pedal hair absent. No varicosities noted. Mild edema noted to the ankles. Neuro: Protective sensation is grossly intact. MSK: Pain on palpation to the ankles worse to the right. Pain along the medial gutter and posterior aspect of the ankles. Positive anterior drawer test. Pain on palpation to the medial and central aspect of the calcaneus, along the plantar medial arch. Positive windlass mechanism. No crepitus or fluctuance noted. Mildly antalgic gait unassisted noted. Results Reviewed Results Reviewed: Laboratory Tests 06/23/25 08:38 WBC 4.5 L Estimat Average Glucose 128 Hemoglobin A1c % 6.1 H Podiatry read of right ankle x-ray (06/21/2025): No acute fractures or dislocations noted. Posterior calcaneal spur noted at the Achilles insertion site. Joint spacing within normal limits. Osteophytic changes noted to the TNJ and TMTJ. Right ankle x-ray (06/21/2025): FINDINGS: No fracture, dislocation, or suspicious bone lesion. There is normal alignment. Ankle mortise is intact. The talar dome is normal. The subtalar joints appear normal. The calcaneus is intact. There is a large Achilles spur present on the dorsal calcaneus. There is no ankle joint effusion. Soft tissues appear normal. IMPRESSION: No acute findings of the right ankle. Large Achilles spur present. Assessment & Plan Assessment & Plan (1) Plantar fasciitis, bilateral: Code(s): M72.2 - Plantar fascial fibromatosis Category: Medical (2) Insertional tendinopathy of both Achilles tendons: Code(s): M76.61 - Achilles tendinitis, right leg; M76.62 - Achilles tendinitis, left leg Category: Medical (3) Chronic instability of ankle: Code(s): M25.373 - Other instability, unspecified ankle Category: Medical (4) History of sprain of both ankles: Code(s): Z87.828 - Personal history of other (healed) physical injury and trauma Category: Medical (5) Bilateral foot pain: Code(s): M79.671 - Pain in right foot; M79.672 - Pain in left foot Category: Medical (6) Bilateral ankle pain: Code(s): M25.571 - Pain in right ankle and joints of right foot; M25.572 - Pain in left ankle and joints of left foot Category: Medical (7) Calcaneal spur: Code(s): M77.30 - Calcaneal spur, unspecified foot Category: Medical Plan Patient was informed and verbally consented to the use of an ambient scribe for clinic note documentation during this visit. I discussed with the patient that her X-ray finding of a bone spur is indicative of significant insertional Achilles tendinopathy. I also explained that the tightness in her arch is from plantar fasciitis. I informed her that the combination of oral steroids and stretching exercises will significantly help reduce the swelling and pain in the ligaments, and that continued exercise will strengthen her ankles to prevent ongoing pain. I explained the plan, including the prescription for a Medrol Dosepak, discontinuing naproxen, using bilateral ankle braces, continuing with insoles, and performing stretching exercises. A follow-up visit was scheduled for three weeks to reassess her condition. - A prescription for Medrol Dosepak was provided. - The patient was advised to stop taking naproxen while on the steroid regimen. - Bilateral lace-up ankle stabilizing braces was provided to be worn with activity. - The patient was instructed to continue using her foot inserts. - Stretching exercises were recommended, instruction form provided. - Advised the patient to avoid walking barefoot. - Continue rice protocol. RTC in 3 weeks. Medications: New methylprednisolone (Medrol (Maury)) PO PER PKG DIR 21 ea 0RF M25.373 - Other instability, unspecified ankle, M25.571 - Pain in right ankle and joints of right foot, M25.572 - Pain in left ankle and joints of left foot, M72.2 - Plantar fascial fibromatosis, M76.61 - Achilles tendinitis, right leg, M76.62 - Achilles tendinitis, left leg, M77.30 - Calcaneal spur, unspecified foot, M79.671 - Pain in right foot, M79.672 - Pain in left foot, Z87.828 - Personal history of other (healed) physical injury and trauma Coding Level of Care Code New Pt Level 4 (69668) Diagnoses Plantar fasciitis, bilateral M72.2 Insertional tendinopathy of both Achilles tendons M76.61; M76.62 Chronic instability of ankle M25.373 History of sprain of both ankles Z87.828 Bilateral foot pain M79.671; M79.672 Bilateral ankle pain M25.571; M25.572 Calcaneal spur M77.30 Time Spent (min) 48
== END 2025-08-11 08:30 | disposition home or self-care (01) ==
LOC: HO.HPODS 07:56
PROVIDERS: PCP Nurse Practitioner Primary Care; Visit Provider Student in an Organized Health Care Education/Training Program
DX: M72.2 Plantar fascial fibromatosis (principal); M76.61 Achilles tendinitis, right leg; M76.62 Achilles tendinitis, left leg; M25.373 Other instability, unspecified ankle; Z87.828 Personal history of other (healed) physical injury and trauma; M79.671 Pain in right foot; M79.672 Pain in left foot; M25.571 Pain in right ankle and joints of right foot; M25.572 Pain in left ankle and joints of left foot; M77.30 Calcaneal spur, unspecified foot
CPT/HCPCS: 99204

== ENCOUNTER → 2025-08-11 07:56 | Outpatient (BNVA) | payer OTHER, SELFPAY | PROVIDERS: PCP Nurse Practitioner Primary Care; Visit Provider Student in an Organized Health Care Education/Training Program | DX: M72.2 Plantar fascial fibromatosis (principal); M76.61 Achilles tendinitis, right leg; M76.62 Achilles tendinitis, left leg; M25.373 Other instability, unspecified ankle; Z87.828 Personal history of other (healed) physical injury and trauma; M77.30 Calcaneal spur, unspecified foot | CPT/HCPCS: 99202 ==

== ENCOUNTER 2025-08-12 11:29 | Outpatient (AMB) | payer OTHER, SELFPAY ==
--- NOTE | 2025-08-12 11:46 | A.OFFVIS_ITS ---
Vital Signs 08/12/25 12:00 Height 5 ft 2 in Weight 173 lb BMI 31.6 BP 124/80 Blood Pressure Location Rt brachial Position Sitting Intake Visit Reasons: 4 months F/U Intake Note: Patient presents follow up Narcolepsy medication Sustainable Landscape Architect Required: No Sustainable Landscape Architect Services: Sustainable Landscape Architect Offered & Declined Accompanied by: Self / Same As Patient Allergies aspirin Allergy (Unknown, Verified 08/11/25 08:04) Rash Medication List - Last Reconciled 08/12/25 by SANA Peck albuterol sulfate 90 mcg/actuation (ProAir HFA) 2 puffs inhalation Q4-6H PRN bupropion HCl XL (Wellbutrin XL) 150 mg PO QAM cholecalciferol (vitamin D3) 50 mcg PO DAILY estradiol 0.01%(0.1mg/gram) vaginal losartan 25 mg PO DAILY magnesium oxide 400 mg PO DAILY 30 days methylphenidate HCl 5 - 10 mg (1 - 2 x 5 mg) PO DAILY 30 days methylprednisolone (Medrol (Maury)) PO PER PKG DIR omeprazole 20 mg PO DAILY sertraline 25 mg PO DAILY 90 days HPI Comments Details: 49-yr-old female presents for follow-up visit of sleep difficulties. Pt denies any significant interval medical history changes, other than recently being treated for bilateral ankle pain and swelling. She reports her narcolepsy symptoms are well controlled. She states she does not have any breakthrough episodes of falling asleep, unless she is inactive and has not taken the methylphenidate. She is taking sertraline q.a.m., bupropion xl in the later a.m., and using meth ylphenidate IR 5 mg tabs in the afternoon if needed. She would prefer to avoid taking too many medications if possible She denies any adverse effects or side effects from any of these medications. She stores her methylphenidate in his secure location at home. She does carry so methylphenidate with her at all times-in a nondescript container. She does note that she is having loud snoring. Review of her most recent study did show moderate to loud snoring. She states her headaches have gotten better. 04/14/2025, HPI: Since the last visit, the patient has started sertraline 25 mg q.a.m. and methylphenidate 5 mg daily at 1-2 pm. She states that this is helping to prevent episodes of follow-up sleep when inactive during the day. Overall, she states she is tolerating this well. Though she does note some recurrence of headache, which he has had in the past. She is not sure if it is related to starting the medication or not. Sometimes we will start to fall asleep at night, and then have a little difficulty falling back to sleep. She states she is eating well-no no significant decrease in oral intake since starting methylphenidate. However, she does endorse that she could probably drink more water/fluids during the day. She is generally hesitant to take too many medications. 02/11/25, Previous HPI: Since the last visit, patient underwent in-lab sleep study followed by MSLT sleep study, results of which were consistent with narcolepsy. 07/16/2024 and 11/22/2024 UA toxicology screen was brady negative. 11/21/2024, baseline in-lab sleep PSG: This 460 minute sleep study was again negative for sleep apnea or sleep disordered breathing or significant periodic limb movements of sleep- with AHI 0 per hour and O2 antonino 93% and average SpO2 97%. REM sleep latency was 11 minutes. Periodic limb movements of sleep 19 per hour with PLMS arousal index 4 per hour. Sleep efficiency was 91%. 11/22/2024 in-lab MSLT: Average sleep latency across 5 naps, 10 minutes 45 seconds, with 3 positive sleep onset REM (SOREMS)- with average REM latency 7 minutes. Since review of the sleep study, we reviewed these results with the patient. She reported a history of trying sertraline and bupropion for her mood, but sertraline at 50 mg caused dry throat, and bupropion was not effective. We reviewed different types of narcolepsy treatments, and patient opted to retry low-dose sertraline. Patient states that since starting sertraline 25 mg in the morning she is more awake during the day, however she is prone to fall asleep after 14:00. Upon review of the sleep study, we had ask patient to review with her family if anyone else has hypersomnia symptoms, and patient states just again that both of her children do not sleep well. She was advised to encourage them to speak to their healthcare providers about evaluating there sleep, as there may be genetic components to narcolepsy. 06/24/2024, previous HPI: Pt reports she started having significant sleep issues about a year ago. She states she is not sure hwy this started. She goes to bed between 10:30-11pm, and gets up around 5am. She feels like she is not sleeping when in bed. She can dream a lot, at times can dream quickly upon sleeping. She denies parasomnias, sleep paralysis, sudden weakness. She denies h/o EBV infection. She states her children do not sleep well either. Since the last visit, pt underwent In-lab PSG which revealed: AHI 0.1/hr and REM AHI 0/hr. Sleep latency was 0 min w/ REM sleep latency was 46.5 min. O2 antonino 94% w/ SpO2 < 88% x's 0 min, and average SpO2 96%; Periodic limb movement of sleep (PLMS) index: 11/hr; PLMS arousal index: 1.5/hr. [facility] Medical History (Updated 08/11/25 @ 08:22 by Rosalva Cheng DPM) Calcaneal spur Bilateral ankle pain Bilateral foot pain History of sprain of both ankles Chronic instability of ankle Insertional tendinopathy of both Achilles tendons Plantar fasciitis, bilateral Asthma GERD (gastroesophageal reflux disease) Anemia Surgical History Hx of colonoscopy History of esophagogastroduodenoscopy (EGD) History of pubovaginal sling Family History Father No problems noted. Mother HTN (hypertension) Dementia Maternal Grandfather Diabetes Son Diabetes Social History Household Members: Children Alcohol intake: never Patient Tobacco Use Status: Never used Tobacco Physical Exam Vital Signs: Last Vital Signs BP 124/80 08/12/25 12:00 BMI result Body Mass Index 31.6 Const General: no acute distress Orientation/consciousness: patient oriented x3 Resp Effort & Inspection: normal respiratory effort and able to speak in complete sentences Neuro General: patient oriented x3 Psych Mental Status: mental status grossly normal Speech and movement: Clear speech present Attitude: cooperative Assessment & Plan Assessment & Plan (1) Narcolepsy: Code(s): G47.419 - Narcolepsy without cataplexy Category: Medical Qualifiers: 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 Patient does not have any other clear comorbid conditions that would otherwise explain her hypersomnia and rapid sleep onset REM activity. Narcolepsy patient education information previously shared with patient. Continue sertraline 25 mg daily in a.m.- patient is hesitant to increase dose as before on the higher dose of 50 mg she had dry throat. Continue bupropion XL daily in the later morning-managed by her PCP We will monitor for exacerbation of periodic limb movement of sleep as she is on both sertraline and bupropion. Continue methylphenidate 5-10 mg daily at 13:00, to allow this to take effect by 14:00 (the time when the activating effects of sertraline or wearing off). We will request ENT consult for moderate to loud snoring, in the meantime she may trial: * OTC Sleep apnea wedge pillow * OTC breathe right type nasal strip Continue to monitor headaches and sleep. Encouraged patient to optimize sleep hygiene ritual. Previously shared information on nonpharmacological treatment interventions for headaches. Advised to avoid driving sleepy- may use methylphenidate prior to longer drives. Patient previously encouraged to discuss having her children sleep difficulties evaluated- has narcolepsy may be genetic. Future considerations: Gabapentin for Periodic limb movement of sleep (PLMS) or sodium oxybate to help with sleep fragmentation. Pt to follow-up in 6 months or sooner prn. Orders: Referrals Ear/Nose/Throat Referral R06.83 - Snoring Medications: Changed From sertraline in the morning 25 mg PO DAILY 30 days 30 tabs 6RF To sertraline in the morning 25 mg PO DAILY 90 tabs 4RF 90 days Refilled methylphenidate HCl Daily at 1pm. Partial Fill upon patient request. PA APPROVED 01/16/2025- 08/31/2039 5 - 10 mg (1 - 2 x 5 mg) PO DAILY 60 tabs 0RF 30 days G47.10 - Hypersomnia, unspecified, G47.419 - Narcolepsy without cataplexy Coding Level of Care Code Est Pt Level 4 (99889) Diagnoses Primary narcolepsy without cataplexy G47.419 Narcolepsy type: primary without cataplexy Hypersomnia G47.10 Nonintractable episodic headache, unspecified headache type R51.9 Headache type: unspecified Headache chronicity pattern: episodic headache Intractability: not intractable Snoring R06.83
[2025-08-12 12:00] VITALS: BP 124/80; BMI 31.6
== END 2025-08-12 12:32 | disposition home or self-care (01) ==
PROVIDERS: PCP Nurse Practitioner Primary Care; Visit Provider Nurse Practitioner Family
DX: G47.419 Narcolepsy without cataplexy (principal); G47.10 Hypersomnia, unspecified; R51.9 Headache, unspecified; R06.83 Snoring
CPT/HCPCS: 99214

== ENCOUNTER → 2025-08-12 11:29 | Outpatient (BNVA) | payer OTHER, SELFPAY | PROVIDERS: PCP Nurse Practitioner Primary Care; Visit Provider Nurse Practitioner Family | DX: G47.419 Narcolepsy without cataplexy (principal); G47.10 Hypersomnia, unspecified; R51.9 Headache, unspecified; R06.83 Snoring; Z79.899 Other long term (current) drug therapy | CPT/HCPCS: 99212 ==